=== PATIENT | female | born 1975 | race Caucasian/White ===

== ENCOUNTER 2018-08-27 09:16 | Emergency (ER) | payer SELFPAY ==
--- NOTE | 2018-08-27 09:24 | ER ---
Nurse's Notes [facility] Name: Sarita Gutierrez Age: 43 yrs Sex: Female : 1975 Arrival Date: 08/27/2018 Time: 09:17 Bed 17 Private MD: Diagnosis: Presentation: 08/27 09:19 Presenting complaint: Pt called back to exam room, no answer. Registration staff report ss that patient was seen getting into her car and leaving. ED Course: :17 Patient arrived in ED. as Administered Medications: No medications were administered Outcome: 09:22 Eloped from waiting room, before triage ss 09:22 unknown 09:23 Patient left the ED. ss Signatures: Priti Day Shelby, RN RN ss
== END 2018-08-27 09:23 | disposition left against medical advice (07) ==
LOC: ER 09:16
DX: Z53.21 Procedure and treatment not carried out due to patient leaving prior to being seen by health care provider (principal)
CPT/HCPCS: 99281

== ENCOUNTER 2018-09-16 08:24 | Emergency (ER) | payer SELFPAY ==
--- NOTE | 2018-09-16 09:34 | ER ---
Nurse's Notes [facility] Name: Sarita Gutierrez Age: 43 yrs Sex: Female : 1975 Arrival Date: 09/16/2018 Time: 08:25 Bed External Waiting [facility] MD: Diagnosis: Schizophrenia, unspecified Presentation: 09/16 08:38 Presenting complaint: Patient states: "I am hearing voices and I think I have cancer". aa5 When asked what the voices are telling her pt answers "a lot of things". Denies suicidal and homicidal ideations. 08:38 Transition of care: patient was not received from another setting of care. Onset of aa5 symptoms was September 16, 2018. Risk Assessment: Do you want to hurt yourself or someone else? Patient reports no desire to harm self or others. Initial Sepsis Screen: Does the patient meet any 2 criteria? No. Patient's initial sepsis screen is negative. Does the patient have a suspected source of infection? No. Patient's initial sepsis screen is negative. Care prior to arrival: None. 08:38 Acuity: JOSE LUIS 4 aa5 08:38 Method Of Arrival: Ambulatory aa5 Historical: - Allergies: 08:40 Erythromycin; aa5 - PMHx: 08:40 Hepatitis C; Schizophrenia; aa5 - Immunization history:: Adult Immunizations unknown. - Social history:: Smoking status: Patient uses tobacco products, smokes one pack cigarettes per day. Patient uses alcohol, on a daily basis. Patient/guardian denies using street drugs. - Ebola Screening: : No symptoms or risks identified at this time. Assessment: 08:50 General: Appears in no apparent distress. unkempt, well developed, well nourished, sg Behavior is agitated, restless, uncooperative. Pain: Complains of pain in abdomen. Neuro: Level of Consciousness is awake, alert, obeys commands, Oriented to person, place, time, Moves all extremities. Speech is normal, Facial symmetry appears normal. Cardiovascular: Patient's skin is warm and dry. Chest pain is denied. Respiratory: Airway is patent Respiratory effort is even, unlabored, Respiratory pattern is regular, symmetrical. GI: Abdomen is round non-distended, obese. GI: Reports stomach feels like its burning. : No signs and/or symptoms were reported regarding the genitourinary system. EENT: No signs and/or symptoms were reported regarding the EENT system. Derm: Skin is pink, warm \\T\\ dry. Musculoskeletal: No signs and/or symptoms reported regarding the musculoskeletal system. 08:51 Reassessment: pt observed walking out of the department at this time, pt reports she sg does not want blood work. pt tolerating water drinking from cup as she walks out of the department. 09:11 Reassessment: pt not in the department at this time. sg Vital Signs: 08:45 BP 119 / 84; Pulse 108; Resp 16 S; Temp 98.7(TE); Pulse Ox 98% on R/A; aa5 ED Course: 08:25 Patient arrived in ED. rg4 08:38 Arm band placed on Patient placed in an exam room, on a stretcher. aa5 08:42 Donaldo Caruso NP is [facility]. pm1 08:42 Elías Arriaza MD is Attending Physician. pm1 08:44 Triage completed. aa5 Administered Medications: No medications were administered Outcome: 09:33 Patient left the ED. aa5 Signatures: Donald Berg, RN RN Cherrie Patel RN RN aa5 Donaldo Caruso NP [employer] pm1 Roxana Tenorio rg4
--- NOTE | 2018-09-16 09:34 | EDPHYS ---
Physician Documentation [facility] Name: Sarita Gutierrez Age: 43 yrs Sex: Female : 1975 Arrival Date: 09/16/2018 Time: 08:25 Bed External Waiting Private MD: ED Physician Elías Arriaza HPI: 09/16 08:48 This 43 yrs old Female presents to ER via Ambulatory with complaints of Psych pm1 Problem, Hearing voices. 08:48 Past psychiatric history: Prior diagnosis: schizophrenia, Psychiatric medications pm1 include: none, Primary psychiatric physician: the patient does not have a primary psychiatric physician. Associated signs and symptoms: Pertinent positives; hallucinations, Pertinent negatives: abdominal pain, chest pain, headache, homicidal ideation, shortness of breath, suicide ideation. Severity of symptoms: Pain is currently a 0 / 10. The patient has experienced similar episodes in the past, chronically. The patient has been recently seen at the [facility] Emergency Department, just prior to arrival, by me, for similar complaints Patient refused to be treated and wanted to go home. Patient now presents to the ER saying that she wishes to be treated. Historical: - Allergies: 08:40 Erythromycin; aa5 - PMHx: 08:40 Hepatitis C; Schizophrenia; aa5 - Immunization history:: Adult Immunizations unknown. - Social history:: Smoking status: Patient uses tobacco products, smokes one pack cigarettes per day. Patient uses alcohol, on a daily basis. Patient/guardian denies using street drugs. - Ebola Screening: : No symptoms or risks identified at this time. ROS: 08:48 Constitutional: Negative for fever, chills, and weight loss, Eyes: Negative for injury, pm1 pain, redness, and discharge, ENT: Negative for injury, pain, and discharge, Neck: Negative for injury, pain, and swelling, Cardiovascular: Negative for chest pain, palpitations, and edema, Respiratory: Negative for shortness of breath, cough, wheezing, and pleuritic chest pain, Abdomen/GI: Negative for abdominal pain, nausea, vomiting, diarrhea, and constipation, Back: Negative for injury and pain, : Negative for injury, bleeding, discharge, and swelling, MS/Extremity: Negative for injury and deformity, Skin: Negative for injury, rash, and discoloration. 08:48 Psych: Positive for auditory hallucinations, Negative for homicidal ideation, suicide gesture, suicidal ideation. Exam: 08:48 Constitutional: This is a well developed, well nourished patient who is awake, alert, pm1 and in no acute distress. Head/Face: Normocephalic, atraumatic. Eyes: Pupils equal round and reactive to light, extra-ocular motions intact. Lids and lashes normal. Conjunctiva and sclera are non-icteric and not injected. Cornea within normal limits. Periorbital areas with no swelling, redness, or edema. ENT: Nares patent. No nasal discharge, no septal abnormalities noted. Tympanic membranes are normal and external auditory canals are clear. Oropharynx with no redness, swelling, or masses, exudates, or evidence of obstruction, uvula midline. Mucous membranes moist. Neck: Trachea midline, no thyromegaly or masses palpated, and no cervical lymphadenopathy. Supple, full range of motion without nuchal rigidity, or vertebral point tenderness. No Meningismus. Chest/axilla: Normal chest wall appearance and motion. Nontender with no deformity. No lesions are appreciated. Cardiovascular: Regular rate and rhythm with a normal S1 and S2. No gallops, murmurs, or rubs. Normal PMI, no JVD. No pulse deficits. Respiratory: Lungs have equal breath sounds bilaterally, clear to auscultation and percussion. No rales, rhonchi or wheezes noted. No increased work of breathing, no retractions or nasal flaring. Abdomen/GI: Soft, non-tender, with normal bowel sounds. No distension or tympany. No guarding or rebound. No evidence of tenderness throughout. Back: No spinal tenderness. No costovertebral tenderness. Full range of motion. Skin: Warm, dry with normal turgor. Normal color with no rashes, no lesions, and no evidence of cellulitis. MS/ Extremity: Pulses equal, no cyanosis. Neurovascular intact. Full, normal range of motion. 08:48 Neuro: Orientation: is normal, Motor: is normal, moves all fours, Sensation: is normal, no obvious gross deficits. 08:48 Psych: Behavior/mood is cooperative, Affect is animated, Oriented to person, place, time, Delusions/hallucinations are not present. Vital Signs: 08:45 BP 119 / 84; Pulse 108; Resp 16 S; Temp 98.7(TE); Pulse Ox 98% on R/A; aa5 MDM: 08:43 Patient medically screened. pm1 08:48 Data reviewed: vital signs. Data interpreted: Pulse oximetry: on room air is 98 %. pm1 Interpretation: normal. 09/16 08:46 Order name: Acetaminophen pm1 09/16 08:46 Order name: Basic Metabolic Panel pm1 09/16 08:46 Order name: EKG - Nurse/Tech pm1 09/16 08:46 Order name: IV Saline Lock pm09/16 08:46 Order name: Labs collected and sent pm09/16 08:46 Order name: Urine Dipstick-Ancillary (obtain specimen) pm1 09/16 08:46 Order name: Urine Test (obtain specimen) pm1 Administered Medications: No medications were administered Disposition: 09/16/18 09:33 Patient left the facility after being seen by provider. Preliminary diagnosis is Schizophrenia, unspecified. - Patient left due to unknown. - Condition is Undetermined. - Problem is an ongoing problem. - Symptoms are unchanged. Addendum: 09/17/2018 18:16 Co-signature as Attending Physician, Elías Arriaza MD. g s Signatures: Dispatcher [employer] Cherrie Rodriguez RN RN aa5 Donaldo Caruso, PULVERIZER TENDER PULVERIZER TENDER pm1 Elías Arriaza MD MD Corrections: (The following items were deleted from the chart) 09/16 09:33 09:33 09/16/2018 09:33 Patient left the facility after being seen by provider. aa5 Preliminary diagnosis is Schizophrenia, unspecified. Reason stated they are leaving due to (see nurse's notes). Condition is Undetermined. Problem is an ongoing problem. Symptoms are unchanged. pm1 09:33 09:33 09/16/2018 09:33 Patient left the facility after being seen by provider. Reason aa5 stated they are leaving due to unknown. aa5
[2018-09-16 09:45] VITALS: BP 119/84; TEMP 98.7; O2SAT 98
== END 2018-09-16 09:33 | disposition left against medical advice (07) ==
LOC: ER 08:24
DX: F20.0 Paranoid schizophrenia (principal); F17.210 Nicotine dependence, cigarettes, uncomplicated; Z88.3 Allergy status to other anti-infective agents
CPT/HCPCS: 93005; 99282

== ENCOUNTER 2018-09-16 19:03 | Emergency (ER) | payer SELFPAY ==
[2018-09-16 19:54] LABS: Absolute Lymphocytes (CBC) 3.4 K/uL (0.7-4.9); Basophils % 0.7 % (0-1.3); Eosinophils % 2.8 % (0-4.4); Hematocrit 37.8 % (36.0-45.0); Lymphocytes % 29.7 % (15.3-44.8); MPV 9.4 fL (7.6-11.3); Monocytes % 11.3 % (3.3-12.3); RBC Red Blood Cell Count 5.16 M/uL (3.86-4.86)
[2018-09-16] MEDS ORDERED: ZIPRASIDONE MESYLA 20 MG/VIAL IM ONE (19:54)
[2018-09-16] MEDS ORDERED: NA CHLORIDE 0.9% 1,000 ML ONE (19:54)
[2018-09-16] MEDS ORDERED: WATER FOR INJ,STERILE 10 ML ONE (19:55)
[2018-09-16 19:59] LABS: Protime INR 0.89
[2018-09-16 20:06] LABS: ALT/SGPT 34 U/L (12-78); AST/SGOT 27 U/L (15-37); Albumin 3.6 g/dL (3.4-5.0); Alkaline Phosphatase 99 U/L (45-117); BUN Blood Urea Nitrogen 9 mg/dL (7-18); Bicarbonate 28 mmol/L (21-32); Bilirubin Direct 0.2 mg/dL (0-0.2); Bilirubin Total 0.8 mg/dL (0.2-1.0); Glucose Level 94 mg/dL (74-106); Potassium 3.7 mmol/L (3.5-5.1); Protein, Total 8.4 g/dL (6.4-8.2); Sodium Level 141 mmol/L (136-145)
[2018-09-16 22:34] LABS: Anisocytosis SLIGHT; Blood Morphology Comment NOTED (NOT SEEN); Platelet Estimate ADEQ; Urine White Blood Cell Casts OK
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
--- NOTE | 2018-09-16 23:18 | EDPHYS ---
Physician Documentation [facility] Name: Sarita Gutierrez Age: 43 yrs Sex: Female : 1975 Arrival Date: 09/16/2018 Time: 19:05 Bed 17 Private MD: ED Physician Raffi Giles HPI: 09/16 23:12 This 43 yrs old Female presents to ER via Ambulatory with complaints of kdr Suicidal Ideation. 23:12 The patient presents to the emergency department with depression, over unknown kdr circumstances, paranoia, suicide ideation, and the patient has a plan, to hang oneself. Onset: The symptoms/episode began/occurred gradually, at an unknown time. Past psychiatric history: Prior diagnosis: schizophrenia, Psychiatric medications include: none, Primary psychiatric physician: the patient does not have a primary psychiatric physician, the patient has had a prior suicide gesture, the patient has a previous inpatient psychiatric history, the patient's last psychiatric treatment was this morning. Associated signs and symptoms: Pertinent positives; hallucinations, suicide ideation. Severity of symptoms: At their worst the symptoms were incapacitating in the emergency department the symptoms are unchanged. The patient has experienced similar episodes in the past, chronically. It is unknown whether or not the patient has recently seen a physician. The patient states that she is hearing voices and wants to put a rope around her neck and hang herself to get the voices to stop. SLAT TWISTER: 19:10 LMP 09/16/2018 aj1 Historical: - Allergies: 19:10 Erythromycin; aj1 - Home Meds: 19:10 None [Active]; aj1 - PMHx: 19:10 Hepatitis C; Schizophrenia; aj1 - Immunization history:: Flu vaccine status is unknown. - Social history:: Smoking status: Patient uses tobacco products, smokes one pack cigarettes per day. Patient uses alcohol, claims drinking about a 6 pack/day. Patient/guardian denies using street drugs. - Ebola Screening: : Patient denies travel to an Ebola-affected area in the 21 days before illness onset. ROS: 23:12 Constitutional: Negative for fever, chills, and weight loss, Eyes: Negative for injury, kdr pain, redness, and discharge, Neck: Negative for injury, pain, and swelling, Cardiovascular: Negative for chest pain, palpitations, and edema, Respiratory: Negative for shortness of breath, cough, wheezing, and pleuritic chest pain, Abdomen/GI: Negative for abdominal pain, nausea, vomiting, diarrhea, and constipation, Back: Negative for injury and pain, : Negative for injury, bleeding, discharge, and swelling, MS/Extremity: Negative for injury and deformity, Skin: Negative for injury, rash, and discoloration, Neuro: Negative for headache, weakness, numbness, tingling, and seizure activity. Allergy/Immunology: Negative for hives, rash, and allergies, Endocrine: Negative for neck swelling, polydipsia, polyuria, polyphagia, and marked weight changes, Hematologic/Lymphatic: Negative for swollen nodes, abnormal bleeding, and unusual bruising. 23:12 Psych: Positive for auditory hallucinations, suicidal ideation, Negative for Exam: 23:12 Constitutional: This is a well developed, well nourished patient who is awake, alert, kdr and in moderate distress. 23:12 Psych: Behavior/mood is anxious, aggressive, suicidal, angry, inappropriate for age, Affect is animated, Oriented to person, place, Patient having thoughts of suicide. Plan for suicide is Rope/hanging Judgement / Insight is impaired. Delusions/hallucinations are present and described as Voices telling her to hang herself. Vital Signs: 19:10 BP 119 / 81; Pulse 116; Resp 20; Temp 97.2; Pulse Ox 99% on R/A; Height 5 ft. 4 in. aj1 (162.56 cm) (R); Pain 0/10; 09/17 02:43 BP 110 / 71; Pulse 88; Resp 14; Temp 97.9(O); Pulse Ox 100% on R/A; ag4 08:35 BP 125 / 91; Pulse 79; Resp 16; Temp 97.6(TE); Pulse Ox 98% on R/A; mh5 12:44 BP 129 / 77; Pulse 83; Resp 17; Temp 98.2(O); Pulse Ox 100% on R/A; mh5 MDM: 09/16 23:12 Data reviewed: vital signs, nurses notes, lab test result(s). Counseling: I had a kdr detailed discussion with the patient and/or guardian regarding: the historical points, exam findings, and any diagnostic results supporting the discharge/admit diagnosis, lab results, the need to transfer to another facility. 23:18 Patient medically screened. [facility] 09/17 12:26 ED course: pt seen and examined, long standing hallucinations hx schizophrenia, drug gs use. states was tired of hearing voices off latuda for a couple of months. states not suicidal, want to get back on meds denies will hurt self if discharged planned. had resources and support for discharge.. 09/16 19:15 Order name: Acetaminophen [facility] 09/16 19:15 Order name: Basic Metabolic Panel [facility] 09/16 19:15 Order name: CBC with Diff [facility] 09/16 19:15 Order name: ETOH Level; Complete Time: 20:30 [facility] 09/16 19:15 Order name: Hepatic Function; Complete Time: 20:30 [facility] 09/16 19:15 Order name: PT-INR; Complete Time: 20:30 [facility] 09/16 19:15 Order name: Ptt, Activated; Complete Time: 20:30 [facility] 09/16 19:15 Order name: Salicylate; Complete Time: 20:30 [facility] 09/16 19:15 Order name: Urine Drug Screen; Complete Time: 12:53 [facility] 09/16 19:16 Order name: Acetaminophen Level; Complete Time: 20:30 [facility] 09/16 19:16 Order name: Basic Metabolic Panel; Complete Time: 20:30 [facility] 09/16 19:16 Order name: CBC with Automated Diff; Complete Time: 12:53 [facility] 09/16 19:58 Order name: CBC Smear Scan; Complete Time: 12:53 [facility] 09/16 23:37 Order name: Urine Dipstick--Ancillary (enter results); Complete Time: 12:53 cm6 09/16 19:15 Order name: IV Saline Lock; Complete Time: 19:41 [facility] 09/16 19:15 Order name: Labs collected and sent; Complete Time: 19:42 [facility] 09/16 19:15 Order name: Urine Dipstick-Ancillary (obtain specimen); Complete Time: 23:25 [facility] 09/16 23:37 Order name: Urine --Ancillary (enter results); Complete Time: 12:53 cm6 09/17 07:00 Order name: Diet Regular; Complete Time: 07:00 09/17 10:17 Order name: Diet Regular; Complete Time: 10:17 mh5 Administered Medications: 09/16 19:40 Drug: Geodon 20 mg Route: IM; Site: right gluteus; rr5 20:40 Follow up: Response: Marked relief of symptoms rr5 19:41 Drug: NS 0.9% 1000 ml Route: IV; Rate: 1 bolus; Site: right antecubital; rr5 22:00 Follow up: Response: No adverse reaction; IV Status: Completed infusion; IV Intake: rr5 1000ml Disposition: 09/17/18 12:31 Discharged to Home. Impression: Schizophrenia, Suicidal ideations. - Condition is Stable. - Discharge Instructions: Schizophrenia, Suicidal Feelings: How to Help Yourself. - Prescriptions for Latuda 40 mg Oral tablet - take 1 tablet by ORAL route once daily; 7 tablet. Hydroxyzine HCl 50 mg Oral Tablet - take 1 tablet by ORAL route every 8 hours As needed; 21 tablet. Neurontin 300 mg Oral Capsule - take 1 capsule by ORAL route 2 times per day; 14 capsule. - Medication Reconciliation Form, Thank You Letter, Antibiotic Education, Prescription Opioid Use form. - Follow up: Private Physician; When: 1 - 2 days; Reason: Re-evaluation by your physician. Signatures: Dispatcher [employer] Annalisa Gomez RN RN aj1 Raffi Giles MD MD kdr Munoz, Edgar, RECREATION WORKER RECREATION WORKER em Elías Arriaza MD MD gs Roque, Raymond RN RN rr5 Corrections: (The following items were deleted from the chart) 09/17 12:26 09/16 23:18 09/16/2018 23:18 Transfer ordered to Psych Facility. Diagnosis is Suicidal gs ideations. Reason for transfer: Higher level of care. Accepting physician is MD. Condition is Fair. Problem is an acute exacerbation. Symptoms have improved. kdr 09/17 13:13 12:31 09/17/2018 12:31 Discharged to Home. Impression: Schizophrenia; Suicidal em ideations. Condition is Stable. Forms are Medication Reconciliation Form, Thank You Letter, Antibiotic Education, Prescription Opioid Use. Follow up: Private Physician; When: 1 - 2 days; Reason: Re-evaluation by your physician. gs
[2018-09-17 00:31] LABS: Barbiturates NEGATIVE (NEGATIVE); Benzodiazepines NEGATIVE (NEGATIVE); Cocaine NEGATIVE (NEGATIVE); METHAMPHETAM POSITIVE (NEGATIVE); Methadone NEGATIVE (NEGATIVE); Opiates NEGATIVE (NEGATIVE); Phencyclidine NEGATIVE (NEGATIVE); THC Cannibis NEGATIVE (NEGATIVE)
[2018-09-17 02:05] LABS: Urine Blood NEGATIVE (NEG); Urine Glucose NEGATIVE (NEG); Urine Protein NEGATIVE (NEG)
[2018-09-17 13:42] VITALS: BP 129/77; TEMP 98.2; O2SAT 100
== END 2018-09-17 13:13 | disposition home or self-care (01) ==
LOC: ER 19:03
DX: R45.851 Suicidal ideations (principal); F20.9 Schizophrenia, unspecified; F17.210 Nicotine dependence, cigarettes, uncomplicated; Z88.3 Allergy status to other anti-infective agents
CPT/HCPCS: 36415; 80048; 80076; 80307; 80320; 80329; 81003; 81025; 85025; 85610; 85730; 96360; 96361; 96372; 99284; J3486; J7030

== ENCOUNTER 2018-09-28 16:08 | Emergency (ER) | payer SELFPAY ==
[2018-09-28 17:07] LABS: Absolute Lymphocytes (CBC) 2.8 K/uL (0.7-4.9); Basophils % 0.8 % (0-1.3); Hematocrit 35.2 % (36.0-45.0); Lymphocytes % 29.2 % (15.3-44.8); MPV 8.7 fL (7.6-11.3); RBC Red Blood Cell Count 4.77 M/uL (3.86-4.86)
[2018-09-28 17:10] LABS: Barbiturates NEGATIVE (NEGATIVE); Benzodiazepines NEGATIVE (NEGATIVE); Cocaine NEGATIVE (NEGATIVE); METHAMPHETAM POSITIVE (NEGATIVE); Methadone NEGATIVE (NEGATIVE); Opiates NEGATIVE (NEGATIVE); Phencyclidine NEGATIVE (NEGATIVE); THC Cannibis NEGATIVE (NEGATIVE)
[2018-09-28 17:11] LABS: Protime INR 0.98
[2018-09-28] MEDS ORDERED: ZIPRASIDONE MESYLA 20 MG/VIAL IM ONE (17:14)
[2018-09-28 17:16] LABS: Urine Blood NEGATIVE (NEG); Urine Glucose NEGATIVE (NEG); Urine Protein NEGATIVE (NEG); Urine pH 6.5 (5.0-7.0)
--- NOTE | 2018-09-28 17:19 | ER ---
Nurse's Notes [facility] Name: Sarita Gutierrez Age: 43 yrs Sex: Female : 1975 Arrival Date: 09/28/2018 Time: 16:13 Bed 30 Private MD: None, None Diagnosis: Schizophrenia, unspecified;Hallucinations, unspecified Presentation: 09/28 16:22 Presenting complaint: "I usually hear voices but my medicine calms it down, but I hb haven't started them since I got out of [facility] in May. Yesterday the voices were loud so I self medicated with meth, and now I feel worse. This morning I thought someone was trying to break into my house and i called the police, now the voices are really loud." Denies HI/SI. Transition of care: patient was not received from another setting of care. Onset of symptoms was September 27, 2018. Risk Assessment: Do you want to hurt yourself or someone else? Patient reports no desire to harm self or others. Initial Sepsis Screen: Does the patient meet any 2 criteria? No. Patient's initial sepsis screen is negative. Does the patient have a suspected source of infection? No. Patient's initial sepsis screen is negative. Care prior to arrival: None. 16:22 Method Of Arrival: Ambulatory hb 16:22 Acuity: JOSE LUIS 3 hb Historical: - Allergies: 16:25 Erythromycin; hb - Home Meds: 16:25 gabapentin Oral 1 cap 3 times per day [Active]; hydroxyzine HCl Oral [Active]; Latuda hb Oral 1 tab once daily [Active]; - PMHx: 16:25 Hepatitis C; Schizophrenia; hb - Immunization history:: Adult Immunizations unknown. - Family history:: not pertinent. - Social history:: Smoking status: unknown. - Hospitalizations: : No recent hospitalization is reported. Screenin:10 Abuse screen: Denies threats or abuse. Denies injuries from another. Nutritional rv screening: No deficits noted. Tuberculosis screening: No symptoms or risk factors identified. Fall Risk None identified. Assessment: 16:30 General: Appears in no apparent distress. uncomfortable, Behavior is calm, cooperative. rv 16:30 Pain: Denies pain. Neuro: Level of Consciousness is awake, alert, obeys commands, rv Oriented to person, place, time, situation. Cardiovascular: Patient's skin is warm and dry. Respiratory: Airway is patent. GI: No signs and/or symptoms were reported involving the gastrointestinal system. : No signs and/or symptoms were reported regarding the genitourinary system. EENT: No signs and/or symptoms were reported regarding the EENT system. Derm: Skin is intact. Musculoskeletal: No signs and/or symptoms reported regarding the musculoskeletal system. 17:12 Reassessment: PATIENT STARTED TO BE UNCOOPERATIVE AND THREATENS TO LEAVE THE ROOM AFTER rv LEARNING SHE WILL BE GETTING A MEDICATION THROUGH IM. REFERRED TO DR HAY. PATIENT TOOK HER IV OUT AND LEFT WITHOUT NOTICE. Vital Signs: 16:24 BP 168 / 88; Pulse 89; Resp 16; Temp 97.4; Pulse Ox 100% on R/A; Weight 86.18 kg; hb Height 5 ft. 4 in. (162.56 cm); Pain 0/10; 16:24 Body Mass Index 32.61 (86.18 kg, 162.56 cm) hb ED Course: 16:13 Patient arrived in ED. mr 16:13 None, None is Private Physician. mr 16:24 Triage completed. hb 16:24 Arm band placed on. hb 16:26 Josef Hay MD is Attending Physician. rn 16:43 Inserted saline lock: 20 gauge in right forearm, using aseptic technique. Blood rv collected. 16:51 Shawn Maravilla, RN is Primary Nurse. rv Administered Medications: 17:16 Not Given (Patient Refused): Geodon 10 mg IM once rv Outcome: 17:15 Eloped from patient exam room, after seeing physician Time discovered patient gone: rv September 28, 2018 at 17:15 17:15 Condition: unchanged 17:22 Patient left the ED. rv Signatures: Senia Brar Josef Hay MD MD rn Baxter, Heather, RN RN Shawn Maravilla RN RN rv
--- NOTE | 2018-09-28 17:20 | EDPHYS ---
Physician Documentation [facility] Name: Sarita Gutierrez Age: 43 yrs Sex: Female : 1975 Arrival Date: 09/28/2018 Time: 16:13 Bed 30 Private MD: None, None ED Physician Josef Hay HPI: 09/28 16:39 This 43 yrs old Female presents to ER via Ambulatory with complaints of rn Hearing voices,hallucinations. 16:39 The patient presents to the emergency department with paranoia. Onset: The rn symptoms/episode began/occurred at an unknown time. Severity of symptoms: At their worst the symptoms were moderate in the emergency department the symptoms are unchanged. The patient has experienced similar episodes in the past. Patient presents with hearing voices, emt intermediate problem, incarcerated in May and off meds since then, reports has [facility] appointment tomorrow but not sure she can wait. Denies suicidal ideation. Reports paranoia, called police earlier because thought someone was breaking into her house. No trauma. Reports felt bad so used meth yesterday which seems to have made things worse. . Historical: - Allergies: 16:25 Erythromycin; hb - Home Meds: 16:25 gabapentin Oral 1 cap 3 times per day [Active]; hydroxyzine HCl Oral [Active]; Latuda hb Oral 1 tab once daily [Active]; - PMHx: 16:25 Hepatitis C; Schizophrenia; hb - Immunization history:: Adult Immunizations unknown. - Family history:: not pertinent. - Social history:: Smoking status: unknown. - Hospitalizations: : No recent hospitalization is reported. ROS: 16:42 Constitutional: Negative for fever, chills, and weight loss, Eyes: Negative for injury, rn pain, redness, and discharge, Neck: Negative for injury, pain, and swelling, Cardiovascular: Negative for chest pain, palpitations, and edema, Respiratory: Negative for shortness of breath, cough, wheezing, and pleuritic chest pain, Abdomen/GI: Negative for abdominal pain, nausea, vomiting, diarrhea, and constipation, : Negative for injury, bleeding, discharge, and swelling, MS/Extremity: Negative for injury and deformity, Skin: Negative for injury, rash, and discoloration, Neuro: Negative for headache, weakness, numbness, tingling, and seizure, Psych: + depression, anxiety, paranoia, and hallucinations Exam: 16:42 Constitutional: This is a well developed, well nourished patient who is awake, alert, rn appears anxious and agitated Head/Face: Normocephalic, atraumatic. Eyes: Pupils equal round and reactive to light, extra-ocular motions intact. Lids and lashes normal. Conjunctiva and sclera are non-icteric and not injected. Cornea within normal limits. Periorbital areas with no swelling, redness, or edema. ENT: MMM Cardiovascular: Regular rate and rhythm. No pulse deficits. Respiratory: Lungs have equal breath sounds bilaterally, clear to auscultation. No increased work of breathing, no retractions or nasal flaring. Skin: Warm, dry MS/ Extremity: Pulses equal, no cyanosis. Neurovascular intact. Full, normal range of motion. Equal circumference. Neuro: Awake and alert, GCS 15, oriented to person, place, time, and situation. Cranial nerves II-XII grossly intact. Motor strength 5/5 in all extremities. Sensory grossly intact. Cerebellar exam normal. Normal gait. Psych: Awake, alert, oriented x 3, fast talking but redirectible, denies suicidal ideation. Reports constant voices. Vital Signs: 16:24 BP 168 / 88; Pulse 89; Resp 16; Temp 97.4; Pulse Ox 100% on R/A; Weight 86.18 kg; hb Height 5 ft. 4 in. (162.56 cm); Pain 0/10; 16:24 Body Mass Index 32.61 (86.18 kg, 162.56 cm) hb MDM: 16:26 Patient medically screened. rn 17:14 Differential diagnosis: psychosis secondary to non-compliance. Data reviewed: vital rn signs, nurses notes. ED course: After long discussion with patient, initial plan was to medicate and see if anti-psychotic would help, and reeval if could f/u tomorrow, which patient agreed to. Next thing I know, patient refuses IV and does not want meds, wants to leave. Still denies suicidal or homicidal ideation, chronic schizophrenic hallucinations have worsened and caused paranoia, does not want to be transferred, has appt tomorrow and wants to go home. Gave her time to think about it and when I returned, patient had eloped without warning. Given not suicidal/homicidal, and denies threat to others or self, police not called. . 09/28 16:38 Order name: Acetaminophen rn 09/28 16:38 Order name: Basic Metabolic Panel rn 09/28 16:38 Order name: CBC with Diff rn 09/28 16:38 Order name: ETOH Level rn 09/28 16:38 Order name: Hepatic Function rn 09/28 16:38 Order name: PT-INR rn 09/28 16:38 Order name: Ptt, Activated rn 09/28 16:38 Order name: Salicylate rn 09/28 16:38 Order name: Urine Drug Screen 09/28 17:11 Order name: Urine Dipstick--Ancillary (enter results) 09/28 17:11 Order name: Urine --Ancillary (enter results) 09/28 17:12 Order name: CBC Smear Scan EDDC 09/28 16:38 Order name: Urine Test (obtain specimen) 09/28 16:38 Order name: IV Saline Lock; Complete Time: 17:16 09/28 16:38 Order name: Labs collected and sent; Complete Time: 17:16 09/28 16:38 Order name: Urine Dipstick-Ancillary (obtain specimen) rn Administered Medications: 17:16 Not Given (Patient Refused): Geodon 10 mg IM once rv Disposition: 09/28/18 17:18 Patient left the facility after being seen by provider. Preliminary diagnosis are Schizophrenia, unspecified, Hallucinations, unspecified. - Patient left due to feeling better. - Condition is Stable. Signatures: Dispatcher [employer] [facility] Josef Hay MD MD rn Baxter, Heather, RN RN hb Vicente, Ronaldo, RN RN rv Corrections: (The following items were deleted from the chart) 16:43 16:42 Constitutional: This is a well developed, well nourished patient who is awake, rn alert, appears anxious and agitated Head/Face: Normocephalic, atraumatic. Eyes: Pupils equal round and reactive to light, extra-ocular motions intact. Lids and lashes normal. Conjunctiva and sclera are non-icteric and not injected. Cornea within normal limits. Periorbital areas with no swelling, redness, or edema. ENT: MMM Cardiovascular: Regular rate and rhythm. No pulse deficits. Respiratory: Lungs have equal breath sounds bilaterally, clear to auscultation. No increased work of breathing, no retractions or nasal flaring. Skin: Warm, dry MS/ Extremity: Pulses equal, no cyanosis. Neurovascular intact. Full, normal range of motion. Equal circumference. Neuro: Awake and alert, GCS 15, oriented to person, place, time, and situation. Cranial nerves II-XII grossly intact. Motor strength 5/5 in all extremities. Sensory grossly intact. Cerebellar exam normal. Normal gait. rn 17:16 16:38 EKG - Nurse/Tech ordered. mendez rv 17:22 17:18 09/28/2018 17:18 Patient left the facility after being seen by provider. rv Preliminary diagnosis is Schizophrenia, unspecified; Hallucinations, unspecified. Reason stated they are leaving due to feeling better. Condition is Stable. rn
[2018-09-28 17:30] LABS: ALT/SGPT 31 U/L (12-78); AST/SGOT 26 U/L (15-37); Albumin 3.3 g/dL (3.4-5.0); Alkaline Phosphatase 88 U/L (45-117); BUN Blood Urea Nitrogen 5 mg/dL (7-18); Bicarbonate 25 mmol/L (21-32); Bilirubin Direct 0.2 mg/dL (0-0.2); Bilirubin Total 0.8 mg/dL (0.2-1.0); Glucose Level 92 mg/dL (74-106); Protein, Total 7.7 g/dL (6.4-8.2); Sodium Level 138 mmol/L (136-145)
[2018-09-28 17:31] VITALS: BP 168/88; TEMP 97.4; O2SAT 100
[2018-09-28 17:49] LABS: Anisocytosis 1+; Blood Morphology Comment NOTED (NOT SEEN); Platelet Estimate ADEQ; Urine White Blood Cell Casts OK
== END 2018-09-28 17:22 | disposition left against medical advice (07) ==
LOC: ER 16:08
DX: F20.9 Schizophrenia, unspecified (principal); R44.3 Hallucinations, unspecified; Z88.1 Allergy status to other antibiotic agents
CPT/HCPCS: 36415; 80048; 80076; 80307; 80320; 80329; 81003; 81025; 85025; 85610; 85730; J3486

== ENCOUNTER 2018-09-29 01:33 | Emergency (ER) | payer SELFPAY ==
[2018-09-29] MEDS ORDERED: FAMOTIDINE 20 MG/2 ML VIAL IV ONE (02:21)
[2018-09-29] MEDS ORDERED: NA CHLORIDE 0.9% 1,000 ML ONE (02:21)
[2018-09-29] MEDS ORDERED: ONDANSETRON 4 MG/2 ML VIAL ONE (02:21)
[2018-09-29] MEDS ORDERED: MORPHINE 4 MG/ML SYR ONE (02:21)
[2018-09-29 02:23] LABS: Basophils % 0.7 % (0-1.3); Hematocrit 36.8 % (36.0-45.0); Lymphocytes % 28.8 % (15.3-44.8); MPV 8.7 fL (7.6-11.3); RBC Red Blood Cell Count 4.98 M/uL (3.86-4.86)
[2018-09-29 02:33] LABS: Urine Blood NEGATIVE (NEG); Urine Glucose NEGATIVE (NEG); Urine Protein NEGATIVE (NEG); Urine Specific Gravity 1.015 (1.005-1.030)
[2018-09-29 02:35] LABS: Protime INR 0.91
[2018-09-29 02:42] LABS: Barbiturates NEGATIVE (NEGATIVE); Benzodiazepines NEGATIVE (NEGATIVE); Cocaine NEGATIVE (NEGATIVE); METHAMPHETAM POSITIVE (NEGATIVE); Methadone NEGATIVE (NEGATIVE); Opiates NEGATIVE (NEGATIVE); Phencyclidine NEGATIVE (NEGATIVE); THC Cannibis NEGATIVE (NEGATIVE)
[2018-09-29 02:43] LABS: Platelet Estimate ADEQ; Urine White Blood Cell Casts OK
[2018-09-29 02:44] LABS: Anisocytosis 1+; Blood Morphology Comment NOTED (NOT SEEN)
[2018-09-29 02:45] LABS: ALT/SGPT 34 U/L (12-78); AST/SGOT 28 U/L (15-37); Albumin 3.6 g/dL (3.4-5.0); Alkaline Phosphatase 104 U/L (45-117); BUN Blood Urea Nitrogen 9 mg/dL (7-18); Bicarbonate 28 mmol/L (21-32); Bilirubin Direct 0.2 mg/dL (0-0.2); Bilirubin Total 0.6 mg/dL (0.2-1.0); Glucose Level 83 mg/dL (74-106); Potassium 3.3 mmol/L (3.5-5.1); Protein, Total 8.2 g/dL (6.4-8.2); Sodium Level 140 mmol/L (136-145)
[2018-09-29] MEDS ORDERED: CEFTRIAXONE/SWI 1gm 1 GM/10 ML SYR ONE (03:47)
--- NOTE | 2018-09-29 06:00 | ER ---
Nurse's Notes [facility] Name: Sarita Gutierrez Age: 43 yrs Sex: Female : 1975 Arrival Date: 09/29/2018 Time: 01:36 Bed 8 Private MD: Diagnosis: Abdominal tenderness;Schizophrenia;Functional dyspepsia;Hypokalemia Presentation: 09/29 01:36 Presenting complaint: EMS states: pt called stating she is hearing voices. pt denies ak1 voices telling her to harm herself or anyone else. pt denies SI or HI thoughts or plans when asked directly. pt was seen in ER 09/28/18 at 1600 for same s/s and eloped. Transition of care: patient was not received from another setting of care. Onset of symptoms is unknown. Risk Assessment: Do you want to hurt yourself or someone else? Patient reports no desire to harm self or others. Other: pt denies SI or HI thoughts or plans. Initial Sepsis Screen: Does the patient meet any 2 criteria? No. Patient's initial sepsis screen is negative. Does the patient have a suspected source of infection? No. Patient's initial sepsis screen is negative. Care prior to arrival: None. 01:36 Method Of Arrival: EMS: [facility] ak1 01:36 Acuity: JOSE LUIS 2 ak1 Triage Assessment: 01:40 General: Appears in no apparent distress. unkempt, Behavior is agitated, restless. ak1 Pain: Complains of pain in chest pain with cough, abd pain. EENT: No signs and/or symptoms were reported regarding the EENT system. Neuro: Level of Consciousness is awake, alert, obeys commands, Oriented to person, place, situation, Moves all extremities. Gait is steady, Speech fast and mumbled . Facial symmetry appears normal. Cardiovascular: Rhythm is sinus tachycardia. Respiratory: Airway is patent Respiratory effort is unlabored, Respiratory pattern is regular. GI: Abdomen is round Reports cramping. : No signs and/or symptoms were reported regarding the genitourinary system. Derm: No signs and/or symptoms reported regarding the dermatologic system. Musculoskeletal: No signs and/or symptoms reported regarding the musculoskeletal system. ADJUDICATION SPECIALIST: 01:40 pt stated she has had a tubal ligation ak1 Historical: - Allergies: 01:40 Erythromycin; ak1 - Home Meds: 01:40 gabapentin Oral 1 cap 3 times per day [Active]; Latuda Oral 1 tab once daily [Active]; ak1 hydroxyzine HCl Oral [Active]; Vistaril Oral [Active]; - PMHx: 01:40 Hepatitis C; Schizophrenia; ak1 - PSHx: 01:40 Tubal ligation; ak1 - Immunization history:: Adult Immunizations unknown. - Social history:: Smoking status: Patient uses tobacco products, smokes one-half pack cigarettes per day, Patient uses alcohol, pt stated she "had a couple of beers today". Patient/guardian denies using street drugs, pt was positive for Meth on her earlier visit today per UDS.. - Ebola Screening: : No symptoms or risks identified at this time. - Family history:: not pertinent. Screenin:44 Abuse screen: Denies threats or abuse. Denies injuries from another. Nutritional ak1 screening: No deficits noted. Tuberculosis screening: No symptoms or risk factors identified. Fall Risk None identified. Assessment: 02:23 Reassessment: Patient appears in no apparent distress at this time. Patient is alert, ak1 oriented x 3, equal unlabored respirations, skin warm/dry/pink. pt requested only half the morphine for pain stating " I don't want to go to sleep" pt asked to hold the other half to be given later if needed for abd pain. pt informed of need to drink oral contrast for CT. pt very restless at this time. pt continues to talk and argue with the voices she hears. General:. 02:58 Reassessment: CT notified pt finished oral contrast. ak1 03:38 Reassessment: pt denies any abd pain at this time. pt has become paranoid, stated "that ak1 woman is going to kill me" when asked the pt could not describe or point out said woman. I offered to speak to said woman but pt stated she was not "real". 06:06 Reassessment: Patient appears in no apparent distress at this time. Patient and/or jd3 family updated on plan of care and expected duration. Pain level reassessed. pt reported understanding of discharge instructions. even and steady gait upon discharge. pt refused last set of vitals. Patient denies pain at this time. Vital Signs: 01:40 BP 153 / 101; Pulse 133; Resp 20; Temp 98.1(TE); Pulse Ox 97% on R/A; Weight 90.72 kg ak1 (R); Height 5 ft. 4 in. (162.56 cm); 02:39 BP 153 / 98; Pulse 91; Resp 20; Temp 97.8; Pulse Ox 100% on R/A; Pain 3/10; ak1 03:52 BP 158 / 103; Pulse 87; Resp 20; Temp 97.8(TE); Pulse Ox 100% on R/A; oe 01:40 Body Mass Index 34.33 (90.72 kg, 162.56 cm) ak1 ED Course: 01:36 Patient arrived in ED. ak1 01:38 Triage completed. ak1 01:39 Chester Madsen MD is Attending Physician. elina 01:40 Arm band placed on Patient placed in an exam room, on a stretcher, Patient notified of ak1 wait time. 01:44 Patient has correct armband on for positive identification. Bed in low position. Call ak1 light in reach. Side rails up X 1. 01:59 Sarah Mahoney, RN is Primary Nurse. ak1 02:23 Initial lab(s) drawn, by nh, sent to lab. Urine collected: clean catch specimen, EKG ak1 done, by ED staff, reviewed by Chester Madsen MD. Inserted saline lock: 20 gauge in right antecubital area, using aseptic technique. Blood collected. 04:59 CT completed. Pt tolerated procedure poorly. Patient moved to CT via stretcher. Patient eh moved back from CT. 05:02 CT Abd/Pelvis - PO and IV Contrast In Process Unspecified. EDMS 05:59 Bhargav Allan MD is Referral Physician. elina 05:59 Bairon Biggs MD is Referral Physician. elina 06:08 No provider procedures requiring assistance completed. IV discontinued, intact, jd3 bleeding controlled, No redness/swelling at site. Pressure dressing applied. Administered Medications: 02:22 Drug: NS 0.9% 1000 ml Route: IV; Rate: 1 bolus; Site: right antecubital; ak1 06:00 Follow up: Response: No adverse reaction; IV Status: Completed infusion; IV Intake: jd3 1000ml 02:22 Drug: Pepcid 20 mg Route: IVP; Site: right antecubital; ak1 02:23 Follow up: Response: No adverse reaction ak1 02:22 Drug: morphine 2 mg {Note: pt requested half the dose now and to hold the other half, ak1 ERP notified. .} Route: IVP; Site: right antecubital; 02:22 Drug: Zofran 4 mg Route: IVP; Site: right antecubital; ak1 02:23 Follow up: Response: No adverse reaction ak1 03:37 Drug: Rocephin 1 grams Route: IV; Rate: per protocol; Site: right antecubital; ak1 06:06 Follow up: Response: No adverse reaction; IV Status: Completed infusion jd3 06:06 Not Given (Patient Refused): Potassium Effervescent Tablet 25 mEq PO once; dissolve in jd3 4 ounces of water or juice, if ct neg Intake: 06:00 IV: 1000ml; Total: 1000ml. jd3 Outcome: 05:59 Discharge ordered by MD. antoine 06:08 Discharged to home ambulatory. jd3 06:08 Condition: stable 06:08 Discharge instructions given to patient, Instructed on discharge instructions, follow up and referral plans. medication usage, Demonstrated understanding of instructions, follow-up care, medications, Prescriptions given X 3. 06:09 Patient left the ED. jd3 Signatures: Dispatcher [employer] EDMS Chester Madsen MD MD cha Hagler, Ervin eh Krenek, Amber RN RN ak1 Isaiah Morales Jonathon RN RN jd3 Corrections: (The following items were deleted from the chart) 06:09 06:06 Reassessment: Patient appears in no apparent distress at this time. Patient jd3 and/or family updated on plan of care and expected duration. Pain level reassessed. pt reported understanding of discharge instructions. even and steady gait upon discharge. Patient denies pain at this time. jd3
--- NOTE | 2018-09-29 06:01 | EDPHYS ---
Physician Documentation [facility] Name: Sarita Gutierrez Age: 43 yrs Sex: Female : 1975 Arrival Date: 09/29/2018 Time: 01:36 Bed 8 Private MD: [facility] Physician Chester Madsen HPI: 09/29 02:02 This 43 yrs old Female presents to ER via EMS with complaints of hearing elina voices. 02:02 The patient presents to the emergency department with psychosis, has experienced elina auditory hallucinations, a history of substance abuse. Onset: The symptoms/episode began/occurred 3 day(s) ago. Past psychiatric history: Prior diagnosis: schizophrenia. The patient presents with abdominal pain in the upper abdomen, in the lower abdomen, in the right upper quadrant, in the left upper quadrant, abdominal distention in the upper abdomen, in the lower abdomen. Onset: The symptoms/episode began/occurred 1 year(s) ago. Associated signs and symptoms: The patient has no apparent associated signs or symptoms. The symptoms do not radiate. Severity of pain: At its worst the pain was mild moderate in the emergency department the pain is unchanged. 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 - Social history:: Smoking status: Patient uses tobacco products, smokes one-half pack cigarettes per day, Patient uses alcohol, pt stated she "had a couple of beers today". Patient/guardian denies using street drugs, pt was positive for Meth on her earlier visit today per UDS.. - Ebola Screening: : No symptoms or risks identified at this time. - Family history:: not pertinent. ROS: 02:02 Constitutional: Negative for fever, chills, and weight loss, Eyes: Negative for injury, elina pain, redness, and discharge, ENT: Negative for injury, pain, and discharge, Neck: Negative for injury, pain, and swelling, Cardiovascular: Negative for chest pain, palpitations, and edema, Respiratory: Negative for shortness of breath, cough, wheezing, and pleuritic chest pain, Back: Negative for injury and pain, : Negative for injury, bleeding, discharge, and swelling, MS/Extremity: Negative for injury and deformity, Skin: Negative for injury, rash, and discoloration, Neuro: Negative for headache, weakness, numbness, tingling, and seizure, Allergy/Immunology: Negative for hives, rash, and allergies, Endocrine: Negative for neck swelling, polydipsia, polyuria, polyphagia, and marked weight changes, Hematologic/Lymphatic: Negative for swollen nodes, abnormal bleeding, and unusual bruising. 02:02 Abdomen/GI: Positive for abdominal pain, of the right upper quadrant, left upper quadrant, right lower quadrant and left lower quadrant. 02:02 Psych: Positive for anxiety, auditory hallucinations. Exam: 02:02 Constitutional: This is a well developed, well nourished patient who is awake, alert, elina and in no acute distress. Head/Face: Normocephalic, atraumatic. Eyes: Pupils equal round and reactive to light, extra-ocular motions intact. Lids and lashes normal. Conjunctiva and sclera are non-icteric and not injected. Cornea within normal limits. Periorbital areas with no swelling, redness, or edema. ENT: Nares patent. No nasal discharge, no septal abnormalities noted. Tympanic membranes are normal and external auditory canals are clear. Oropharynx with no redness, swelling, or masses, exudates, or evidence of obstruction, uvula midline. Mucous membranes moist. Neck: Trachea midline, no thyromegaly or masses palpated, and no cervical lymphadenopathy. Supple, full range of motion without nuchal rigidity, or vertebral point tenderness. No Meningismus. Chest/axilla: Normal chest wall appearance and motion. Nontender with no deformity. No lesions are appreciated. Respiratory: Lungs have equal breath sounds bilaterally, clear to auscultation and percussion. No rales, rhonchi or wheezes noted. No increased work of breathing, no retractions or nasal flaring. Back: No spinal tenderness. No costovertebral tenderness. Full range of motion. Skin: Warm, dry with normal turgor. Normal color with no rashes, no lesions, and no evidence of cellulitis. MS/ Extremity: Pulses equal, no cyanosis. Neurovascular intact. Full, normal range of motion. Neuro: Awake and alert, GCS 15, oriented to person, place, time, and situation. Cranial nerves II-XII grossly intact. Motor strength 5/5 in all extremities. Sensory grossly intact. Cerebellar exam normal. Normal gait. 02:02 Cardiovascular: Rate: tachycardic, Rhythm: regular, Pulses: Pulses are 4+ in bilateral radial, brachial, femoral, popliteal, posterior tibial and and dorsalis pedis arteries.. Heart sounds: normal, Edema: is not appreciated, JVD: is not appreciated. Vital Signs: 01:40 BP 153 / 101; Pulse 133; Resp 20; Temp 98.1(TE); Pulse Ox 97% on R/A; Weight 90.72 kg ak1 (R); Height 5 ft. 4 in. (162.56 cm); 02:39 BP 153 / 98; Pulse 91; Resp 20; Temp 97.8; Pulse Ox 100% on R/A; Pain 3/10; ak1 03:52 BP 158 / 103; Pulse 87; Resp 20; Temp 97.8(TE); Pulse Ox 100% on R/A; oe 01:40 Body Mass Index 34.33 (90.72 kg, 162.56 cm) ak MDM: 01:39 Patient medically screened. [facility] 02:04 Data reviewed: vital signs, nurses notes, lab test result(s), EKG, radiologic studies, [facility] CT scan, plain films. 09/29 01:41 Order name: Acetaminophen; Complete Time: 03:06 [facility] 09/29 01:41 Order name: Basic Metabolic Panel; Complete Time: 03:06 [facility] 09/29 01:41 Order name: CBC with Diff; Complete Time: 03:06 [facility] 09/29 01:41 Order name: ETOH Level; Complete Time: 03:06 [facility] 09/29 01:41 Order name: Hepatic Function; Complete Time: 03:06 [facility] 09/29 01:41 Order name: PT-INR; Complete Time: 03:06 [facility] 09/29 01:41 Order name: Ptt, Activated; Complete Time: 03:06 [facility] 09/29 01:41 Order name: Salicylate; Complete Time: 03:06 [facility] 09/29 01:41 Order name: Urine Drug Screen; Complete Time: 03:06 elina 09/29 02:02 Order name: Lipase; Complete Time: 03:06 elina 09/29 02:02 Order name: CT Abd/Pelvis - PO and IV Contrast [facility] 09/29 02:29 Order name: Urine Dipstick--Ancillary (enter results); Complete Time: 03:06 fc 09/29 02:29 Order name: Urine --Ancillary (enter results); Complete Time: 03:06 fc 09/29 02:44 Order name: CBC Smear Scan; Complete Time: 03:06 EDMS 09/29 01:41 Order name: Urine Test (obtain specimen); Complete Time: 02:40 elina 09/29 01:41 Order name: EKG; Complete Time: 01:42 elina 09/29 01:41 Order name: EKG - Nurse/Tech; Complete Time: 02:23 elina 09/29 01:41 Order name: IV Saline Lock; Complete Time: 02:23 elina 09/29 01:41 Order name: Labs collected and sent; Complete Time: 02:23 elina 09/29 01:41 Order name: Urine Dipstick-Ancillary (obtain specimen); Complete Time: 02:23 [facility] Administered Medications: 02:22 Drug: NS 0.9% 1000 ml Route: IV; Rate: 1 bolus; Site: right antecubital; ak1 06:00 Follow up: Response: No adverse reaction; IV Status: Completed infusion; IV Intake: jd3 1000ml 02:22 Drug: Pepcid 20 mg Route: IVP; Site: right antecubital; ak1 02:23 Follow up: Response: No adverse reaction ak1 02:22 Drug: morphine 2 mg {Note: pt requested half the dose now and to hold the other half, ak1 ERP notified. .} Route: IVP; Site: right antecubital; 02:22 Drug: Zofran 4 mg Route: IVP; Site: right antecubital; ak1 02:23 Follow up: Response: No adverse reaction ak1 03:37 Drug: Rocephin 1 grams Route: IV; Rate: per protocol; Site: right antecubital; ak1 06:06 Follow up: Response: No adverse reaction; IV Status: Completed infusion jd3 06:06 Not Given (Patient Refused): Potassium Effervescent Tablet 25 mEq PO once; dissolve in jd3 4 ounces of water or juice, if ct neg Disposition: 09/29/18 05:59 Discharged to Home. Impression: Abdominal tenderness, Schizophrenia, Functional dyspepsia, Hypokalemia. - Condition is Stable. - Discharge Instructions: Abdominal Pain, Adult, Potassium Content of Foods, Schizophrenia, Abdominal Pain, Adult, [id number], Hypokalemia. - Prescriptions for Bentyl 20 mg Oral Tablet - take 1 tablet by ORAL route every 6 hours As needed; 20 tablet. Pepcid 20 mg Oral Tablet - take 1 tablet by ORAL route every 12 hours for 10 days; 20 tablet. Zofran 4 mg Oral Tablet - take 1 tablet by ORAL route every 12 hours As needed; 20 tablet. - Medication Reconciliation Form, Thank You Letter, Antibiotic Education, Prescription Opioid Use form. - Follow up: Private Physician; When: 2 - 3 days; Reason: Recheck today's complaints, Continuance of care, Re-evaluation by your physician. Follow up: Bhargav Allan; When: 2 - 3 days; Reason: Recheck today's complaints, Re-evaluation by your physician. Follow up: Bairon Biggs; When: 2 - 3 days; Reason: Recheck today's complaints, Re-evaluation by your physician. - Problem is new. - Symptoms have improved. Signatures: Dispatcher [employer] EDMS Chester Madsen MD MD cha Krenek, Amber RN RN ak1 Radames Suarez RN RN jd3 Corrections: (The following items were deleted from the chart) 06:09 05:59 09/29/2018 05:59 Discharged to Home. Impression: Abdominal tenderness; jd3 Schizophrenia; Functional dyspepsia; Hypokalemia. Condition is Stable. Discharge Instructions: Abdominal Pain, Adult, Schizophrenia, Abdominal Pain, Adult, [id number]. Prescriptions for Bentyl 20 mg Oral Tablet - take 1 tablet by ORAL route every 6 hours As needed; 20 tablet, Pepcid 20 mg Oral Tablet - take 1 tablet by ORAL route every 12 hours for 10 days; 20 tablet, Zofran 4 mg Oral Tablet - take 1 tablet by ORAL route every 12 hours As needed; 20 tablet. and Forms are Medication Reconciliation Form, Thank You Letter, Antibiotic Education, Prescription Opioid Use. Follow up: Private Physician; When: 2 - 3 days; Reason: Recheck today's complaints, Continuance of care, Re-evaluation by your physician. Follow up: Bhargav Allan; When: 2 - 3 days; Reason: Recheck today's complaints, Re-evaluation by your physician. Follow up: Bairon Biggs; When: 2 - 3 days; Reason: Recheck today's complaints, Re-evaluation by your physician. Problem is new. Symptoms have improved. elina
[2018-09-29 06:34] VITALS: BP 158/103; TEMP 97.8; O2SAT 100
--- NOTE | 2018-09-29 07:35 | EKG ---
Test Date: 2018-09-29 Test Time: 02:14:05 Executive Secretary Social Welfare: EDELMIRA MEASUREMENT RESULTS: Intervals: Rate: 96 LA: 150 QRSD: 80 QT: 350 QTc: 442 [place]: P: 65 LA: 150 QRS: 56 T: 56 INTERPRETIVE STATEMENTS: Normal sinus rhythm Normal ECG Compared to ECG 02/09/2016 23:15:09 No significant changes Electronically Signed On 09-29-18 07:34:57 CDT by Josafat Thompson
--- NOTE | 2018-09-29 10:34 | RAD REPORT ---
EXAM DESCRIPTION: CT - Abdomen Pelvis W Contrast - 09/29/2018 5:55 am CLINICAL HISTORY: The patient is 43 years old and is Female; ABD PAIN TECHNIQUE: Axial computed tomography images of the abdomen and pelvis with intravenous contrast. S agittal and coronal reformatted images were created and reviewed. This CT exam was performed using one or more of the following dose reduction techniques: automated exposure control, adjustment of t he mA and/or kV according to patient size, and/or use of iterative reconstruction technique. COMPARISON: No relevant prior studies available. FINDINGS: ARTIFACTS: The exam is suboptimal secondary to motion artifact. LUNG BASES: Unremarkable. No mass. No consolidation. ABDOMEN: LIVER: Unremarkable. No mass. GALLBLADDER AND BILE DUCTS: No calcified stones. No ductal dilation. PANCREAS: No ductal dilation. No mass. SPLEEN: Unremarkable. ADRENALS: Unremarkable. No mass. KIDNEYS AND URETERS: Unremarkable. No solid mass. No hydronephrosis. STOMACH AND BOWEL: The stomach is distended with oral contrast and food contents. Oral contrast is present throughout small bowel which is normal in caliber. Oral contrast and stool are noted throu ghout majority the colon. There is no mucosal thickening or evidence of bowel obstruction. PELVIS: APPENDIX: The appendix is normal in caliber without surrounding inflammation. BLADDER: The bladder is well distended. REPRODUCTIVE: A 2.5 cm left ovarian cyst is present. No follow-up imaging is recommended. The ut erus and right ovary are normal. ABDOMEN and PELVIS: INTRAPERITONEAL SPACE: Unremarkable. No free air. No significant fluid collection. BONES/JOINTS: No acute fracture. SOFT TISSUES: The soft tissues are normal. VASCULATURE: Unremarkable. No abdominal aortic aneurysm. LYMPH NODES: Unremarkable. No enlarged lymph nodes. IMPRESSION: No acute findings on this contrasted CT of the abdomen and pelvis to explain the patient 's symptoms. Electronically signed by: Jessenia Osborn MD 09/29/2018 5:43 AM CDT Due to temporary technical issues with the PACS/Fluency reporting system, reports are being signed by the in house radiologist as a courtesy to ensure prompt reporting. The interpreting radiologist is f ully responsible for the content of the report.
== END 2018-09-29 06:09 | disposition home or self-care (01) ==
LOC: ER 01:33
DX: R10.9 Unspecified abdominal pain (principal); F20.9 Schizophrenia, unspecified; K30 Functional dyspepsia; E87.6 Hypokalemia; B19.20 Unspecified viral hepatitis C without hepatic coma; F17.210 Nicotine dependence, cigarettes, uncomplicated; Z88.1 Allergy status to other antibiotic agents
CPT/HCPCS: 36415; 74177; 80048; 80076; 80307; 80320; 80329; 81003; 81025; 83690; 85025; 85610; 85730; 93005; 96361; 96365; 96366; 96375; 99285; J0696; J2405; J7030; Q9967

== ENCOUNTER 2018-09-29 13:38 | Emergency (ER) | payer SELFPAY ==
[2018-09-29] MEDS ORDERED: WATER FOR INJ,STERILE 10 ML ONE (13:54)
[2018-09-29] MEDS ORDERED: ZIPRASIDONE MESYLA 20 MG/VIAL IM ONE (13:54)
[2018-09-29 15:08] LABS: Absolute Lymphocytes (CBC) 2.4 K/uL (0.7-4.9); Basophils % 0.6 % (0-1.3); Hematocrit 39.7 % (36.0-45.0); Lymphocytes % 25.7 % (15.3-44.8); MPV 8.9 fL (7.6-11.3); RBC Red Blood Cell Count 5.34 M/uL (3.86-4.86)
[2018-09-29 15:10] LABS: Barbiturates NEGATIVE (NEGATIVE); Benzodiazepines NEGATIVE (NEGATIVE); Cocaine NEGATIVE (NEGATIVE); METHAMPHETAM POSITIVE (NEGATIVE); Methadone NEGATIVE (NEGATIVE); Opiates NEGATIVE (NEGATIVE); Phencyclidine NEGATIVE (NEGATIVE); THC Cannibis NEGATIVE (NEGATIVE)
[2018-09-29 15:16] LABS: Urine Bacteria <20 /HPF (<20); Urine Culture Reflex Order NOT NEEDED; Urine RBC <5 /HPF (NONE SEEN)
[2018-09-29 15:17] LABS: Protime INR 0.89
[2018-09-29 15:39] LABS: Blood Morphology Comment NOT SEEN (NOT SEEN); Platelet Estimate ADEQ; Urine White Blood Cell Casts OK
[2018-09-29 15:43] LABS: ALT/SGPT 39 U/L (12-78); AST/SGOT 35 U/L (15-37); Albumin 4.1 g/dL (3.4-5.0); Alkaline Phosphatase 102 U/L (45-117); BUN Blood Urea Nitrogen 8 mg/dL (7-18); Bicarbonate 22 mmol/L (21-32); Bilirubin Direct 0.3 mg/dL (0-0.2); Bilirubin Total 1.3 mg/dL (0.2-1.0); Glucose Level 68 mg/dL (74-106); Potassium 3.1 mmol/L (3.5-5.1); Protein, Total 9.4 g/dL (6.4-8.2); Sodium Level 136 mmol/L (136-145)
[2018-09-29 17:05] LABS: Urine Blood NEGATIVE (NEG); Urine Glucose NEGATIVE (NEG); Urine Protein NEGATIVE (NEG); Urine Specific Gravity 1.005 (1.005-1.030)
--- NOTE | 2018-09-29 21:02 | ER ---
Nurse's Notes [facility] Name: Sarita Gutierrez Age: 43 yrs Sex: Female : 1975 Arrival Date: 09/29/2018 Time: 13:44 Bed 8 Private MD: Diagnosis: Suicidal ideations;Hallucinations, unspecified;Schizophrenia Presentation: 09/29 13:40 Initial Sepsis Screen: Does the patient meet any 2 criteria? No. Patient's initial sv sepsis screen is negative. 13:42 Note In the process of retrieving pt's personal items and getting her to change into a sv gown, pt was sitting on the stretcher and jumped off of the stretcher and started rambling loudly and walked outside of the room. Instructed pt to return to her room for her safety. Pt started yelling, screaming, and pacing the room. Pt got her purse and pulled out what appeared to be a phone charging wire. Pt continued screaming, and throwing her arms at me attempting to hit me. I attempted deescalation but pt started rambling and yelling and then placed the wire around her neck tightly. Debra COLON came to assist and witnessed the wire around the neck. Kale Chin called. Instructed pt to remove the wire from her neck, pt removed the wire. Debra RN, Justine COLON, 2 security employees, [place] (facilities), Minh SUMMERS came to the bedside. Minh at pt's bedside attempting to de-escalate the pt. She was able to get her to sit back on the stretcher, but continuing to rock in the bed. Pt able to speak to staff without yelling at this time. Medication order received from Minh SUMMERS. 13:48 Presenting complaint: EMS states: Called out to patient for suicidal ideations. Pt ss reports that she has been hearing voices x 10 years, but does not take any medications. Patient admits to using Meth a few days ago to help with the hallucinations. Patient admitted to EMS personnel that she has been homeless and without food and water for 3 days. Pt admits to recent drug use (Meth) to help the hallucinations. Transition of care: patient was not received from another setting of care. Onset of symptoms is unknown. Risk Assessment: Do you want to hurt yourself or someone else? Patient reports desire/thoughts of hurting themselves or someone else. Provider notified. Initial Sepsis Screen: Does the patient have a suspected source of infection? No. Patient's initial sepsis screen is negative. Care prior to arrival: Glucose check: 108. 13:48 Acuity: JOSE LUIS 2 13:48 Method Of Arrival: EMS: [facility] Triage Assessment: 13:35 General: Appears uncomfortable, Behavior is anxious, flat, restless. Pain: Denies pain. sv Neuro: Level of Consciousness is awake, alert, obeys commands, confused, Oriented to person, Moves all extremities. Gait is steady. Respiratory: Airway is patent Respiratory effort is even, unlabored, Respiratory pattern is regular, symmetrical. Derm: Skin is normal. MGMT SPECIALIST: 22:19 LMP N/A - Irregular menses jd3 Historical: - Allergies: 14:04 Erythromycin; ss - Home Meds: 14:04 Vistaril Oral [Active]; Latuda Oral 1 tab once daily [Active]; hydroxyzine HCl Oral ss [Active]; gabapentin Oral 1 cap 3 times per day [Active]; - PMHx: 14:04 Hepatitis C; Schizophrenia; ss - PSHx: 14:04 Tubal ligation; ss - Immunization history:: Adult Immunizations unknown. - Social history:: Smoking status: unknown. - Ebola Screening: : Unable to complete screening because. Screenin:06 Abuse screen: unknown. Nutritional screening: unknown. Tuberculosis screening: unknown. sv Fall Risk No fall in past 12 months (0 pts). No secondary diagnosis (0 pts). No IV (0 pts). Ambulatory Aid- None/Bed Rest/Nurse Assist (0 pts). Gait- Normal/Bed Rest/Wheelchair (0 pts) Mental Status- Oriented to own ability (0 pts). Total Dykes Fall Scale indicates No Risk (0-24 pts). Assessment: 15:42 Reassessment: Patient appears in no apparent distress at this time. Patient and/or sv family updated on plan of care and expected duration. Pain level reassessed. Pt appears to be resting with eyes closed. 16:30 General: Appears comfortable, well developed, Behavior is calm, sleeping on and off. Pt sv continues to talk to her hallucinations intermittently.. Respiratory: Respiratory effort is even, unlabored, Respiratory pattern is regular, symmetrical. Derm: Skin is normal, no ligature hudson noted to the neck. 18:00 Reassessment: Patient appears in no apparent distress at this time. Patient and/or sv family updated on plan of care and expected duration. Pain level reassessed. Respiratory: Respiratory effort is even, unlabored, Respiratory pattern is regular, symmetrical. 19:10 Reassessment: [facility] sales representative business courses at bedside with sitter. General: Appears jd3 comfortable, Behavior is calm, drowsy. Pain: Denies pain. Neuro: Level of Consciousness is awake, confused, Oriented to person. Cardiovascular: Denies chest pain, nausea, shortness of breath, Capillary refill < 3 seconds Patient's skin is warm and dry. Respiratory: Airway is patent Respiratory effort is even, unlabored, Respiratory pattern is regular, symmetrical, Denies cough, shortness of breath. GI: No signs and/or symptoms were reported involving the gastrointestinal system. : No signs and/or symptoms were reported regarding the genitourinary system. EENT: No signs and/or symptoms were reported regarding the EENT system. Derm: Skin is intact, Skin is dry, Skin is normal. Musculoskeletal: Circulation, motion, and sensation intact. Range of motion: intact in all extremities. 20:05 Reassessment: Patient appears in no apparent distress at this time. Patient and/or jd3 family updated on plan of care and expected duration. Pain level reassessed. pt resting in bed with eyes closed, even and unlabored respirations. sitter at bedside. bed rails up X 2. no distress noted at this time. 21:00 Reassessment: Patient appears in no apparent distress at this time. No changes from [facility] previously documented assessment. Patient and/or family updated on plan of care and expected duration. Pain level reassessed. Patient is alert, oriented x 3, equal unlabored respirations, skin warm/dry/pink. 21:00 General: Behavior is calm, cooperative, drowsy. Neuro: Level of Consciousness is awake, jd3 obeys commands, Oriented to person, place, time, situation. 21:32 Reassessment: Report called to Michelle COLON at [facility]. 22:00 Reassessment: Patient appears in no apparent distress at this time. Patient and/or jd3 family updated on plan of care and expected duration. Pain level reassessed. Patient is alert, oriented x 3, equal unlabored respirations, skin warm/dry/pink. IV discontinued. Patient denies pain at this time. 22:19 Reassessment: Patient appears in no apparent distress at this time. Patient and/or jd3 family updated on plan of care and expected duration. Pain level reassessed. Patient is alert, oriented x 3, equal unlabored respirations, skin warm/dry/pink. report given to EMS. Patient denies pain at this time. Psych: 13:35 Subjective: Patient's mood is elevated, irritable, Delusions are denied, Hallucinations sv are auditory, visual, Having thoughts of suicide. Denies suicidal plan. Suicide Risk Assessment: Sad Person Scale: Sex of patient: Female: Score 0 points. Age of patient: Score 0 point if patient falls outside of specified age parameters. Depression: Score 1 point if signs of depression are present. Previous Attempt: Score 1 point if patient has previously attempted suicide. Substance Abuse: Score 1 point if patient abuses alcohol or drugs. Rational Thinking: Score 1 point if patient is lacking rational thinking. Social Support: Score 1 point if social support is lacking and/or unavailable. Organized Plan: Score 0 if patient did not have an organized plan in place. Relationship: Score 1 point if patient is , , , or for a single male Chronic Sickness: Score 1 point if patient has illness, chronic, debilitating, or severe. TOTAL POINTS: If total points are 7-10, the proposed clinical action is to hospitalize or commit. Implement suicide precautions. 13:35 Objective: Patient is cooperative, irritable, using poor eye contact, restless, Speech sv is rambling, rapid, Affect is flat. Interventions: Patient reassessed during use of restraints. Patient is physically safe. Patient's cardiac status is stable. Patient's respirations are even and unlabored. Patient has good circulation in all extremities as indicated by capillary refill < 3 seconds. Patient's ROM assessed and is intact. Patient nutrition and hydration needs will continue to be monitored and addressed. Patient hygiene and elimination needs met. Patient assessed for signs of distress. Patient remains reasonably comfortable at this time. Assisted patient in de-escalation of behavior by removing stimuli causing behavior where possible. Safety Checks: Door is open. No visitors are present at this time. Patient uses methamphetamines Last use was unknown. 13:50 Interventions: Removed personal items and placed in bag. Searched person for dangerous sv items. Safety Checks: Personal items have been removed. Door is open. 16:09 Interventions: Patient placed in hospital gown. sv 22:20 Commitment: Patient will be a voluntary commitment. jd3 Vital Signs: 13:40 BP 136 / 100; Pulse 105; Resp 18; Temp 98.7; Pulse Ox 99% ; Pain 0/10; sv 18:33 BP 148 / 87; Pulse 88; Resp 15; Temp 98(O); Pulse Ox 99% on R/A; ag4 20:00 BP 131 / 80; Pulse 77; Resp 17 S; Pulse Ox 99% on R/A; jd3 20:41 BP 131 / 80; Pulse 77; Resp 20; Temp 97.9; Pulse Ox 99% ; tr4 ED Course: 13:44 Patient arrived in ED. ss 13:50 Safety Checks: Personal items have been removed. The door is open or patient has been sv placed in a hallway bed/chair. There are no family/friend visitors at this time. 14:00 Minh Ryan PA is [facility]. [facility] 14:00 Safety checks: Items removed: yes. Door open/sign placed on door: yes. Family/friend jb1 present: no. Sitter present: Yes. 14:00 Patient has correct armband on for positive identification. Bed in low position. Call sv light in reach. Head of bed elevated. 14:01 Raffi Giles MD is Attending Physician. jr 14:03 Triage completed. ss 14:04 Mavis Lee RN is Primary Nurse. sv 14:04 Arm band placed on right wrist. ss 14:15 Safety checks: Items removed: yes. Door open/sign placed on door: yes. Family/friend jb1 present: no. Sitter present: Yes. 14:25 Urine collected: clean catch specimen, clear, EKG done, by photovoltaic technician. reviewed by Minh SUMMERS. 14:30 Safety checks: Items removed: yes. Door open/sign placed on door: yes. Family/friend ag4 present: no. Sitter present: Yes. 14:30 Inserted saline lock: 22 gauge in right hand, using aseptic technique. Flushed right sv hand with 5 ml normal saline. 14:45 Safety checks: Items removed: yes. Door open/sign placed on door: yes. Family/friend ag4 present: no. Sitter present: Yes. 14:54 Acetaminophen Sent. sv 14:54 Basic Metabolic Panel Sent. sv 15:00 Safety checks: Items removed: yes. Door open/sign placed on door: yes. Family/friend ag4 present: no. Sitter present: Yes. 15:15 Safety checks: Items removed: yes. Door open/sign placed on door: yes. Family/friend ag4 present: no. Sitter present: Yes. 15:30 Safety checks: Items removed: yes. Door open/sign placed on door: yes. Family/friend ag4 present: no. Sitter present: Yes. 15:34 CBC Smear Scan Sent. sv 15:45 Safety checks: Items removed: yes. Door open/sign placed on door: yes. Family/friend ag4 present: no. Sitter present: Yes. 16:00 Safety checks: Items removed: yes. Door open/sign placed on door: yes. Family/friend ag4 present: no. Sitter present: Yes. 16:15 Safety checks: Items removed: yes. Door open/sign placed on door: yes. Family/friend ag4 present: no. Sitter present: Yes. 16:30 Safety checks: Items removed: yes. Door open/sign placed on door: yes. Family/friend ag4 present: no. Sitter present: Yes. 16:45 Safety checks: Items removed: yes. Door open/sign placed on door: yes. Family/friend ag4 present: no. Sitter present: Yes. 17:00 Safety checks: Items removed: yes. Door open/sign placed on door: yes. Family/friend ag4 present: no. Sitter present: Yes. 17:15 Safety checks: Items removed: yes. Door open/sign placed on door: yes. Family/friend ag4 present: no. Sitter present: Yes. 17:30 Safety checks: Items removed: yes. Door open/sign placed on door: yes. Family/friend ag4 present: no. Sitter present: Yes. 17:45 Safety checks: Items removed: yes. Door open/sign placed on door: yes. Family/friend ag4 present: no. Sitter present: Yes. 17:47 called the [facility] and spoke with Alyce she will page out the screener to come eb out and evaluate the patient. 18:00 Safety checks: Items removed: yes. Door open/sign placed on door: yes. Family/friend ag4 present: no. Sitter present: Yes. 18:15 Safety checks: Items removed: yes. Door open/sign placed on door: yes. Family/friend ag4 present: no. Sitter present: Yes. 18:30 Safety checks: Items removed: yes. Door open/sign placed on door: yes. Family/friend ag4 present: no. Sitter present: Yes. 18:45 Safety checks: Items removed: yes. Door open/sign placed on door: yes. Family/friend ag4 present: no. Sitter present: Yes. 19:00 Safety Checks: Personal items have been removed. The door is open or patient has been jd3 placed in a hallway bed/chair. There are no family/friend visitors at this time Sitter present at this time. 19:06 PHCP role handed off by Minh Ryan PA kb 19:06 Marian Johnston FNP-C is PHCP. kb 19:09 Report given to Sarah COLON and Radames COLON. sv 19:11 Primary Nurse role handed off by Mavis Lee RN sv 19:12 Radames Suarez RN is Primary Nurse. jd3 19:15 Safety Checks: Personal items have been removed. The door is open or patient has been jd3 placed in a hallway bed/chair. There are no family/friend visitors at this time Sitter present at this time. 19:30 Safety Checks: Personal items have been removed. The door is open or patient has been jd3 placed in a hallway bed/chair. There are no family/friend visitors at this time Sitter present at this time. 19:45 Safety Checks: Personal items have been removed. The door is open or patient has been jd3 placed in a hallway bed/chair. There are no family/friend visitors at this time Sitter present at this time. 20:00 Safety Checks: Personal items have been removed. The door is open or patient has been jd3 placed in a hallway bed/chair. There are no family/friend visitors at this time Sitter present at this time. 20:15 Safety Checks: Personal items have been removed. The door is open or patient has been jd3 placed in a hallway bed/chair. There are no family/friend visitors at this time Sitter present at this time. 22:01 Safety checks: Items removed: yes. Door open/sign placed on door: no. Family/friend tr4 present: no. Sitter present: Yes. Safety checks: Items removed:. 22:19 No provider procedures requiring assistance completed. IV discontinued, intact, jd3 bleeding controlled, No redness/swelling at site. Pressure dressing applied. Administered Medications: 14:00 Drug: Geodon 20 mg Route: IM; Site: right vastus lateralis; ss 14:12 Follow up: Response: No adverse reaction sv 22:10 Not Given (Patient Refused): Potassium Chloride 40 mEq PO once jd3 Output: 16:00 Urine: 500ml (Voided); Total: 500ml. sv 17:11 Urine: 800ml (Voided); Total: 1300ml. sv Outcome: 21:02 ER care complete, transfer ordered by MD. kb 22:20 Transferred by ground EMS to [facility], Transfer form completed. jd3 22:20 Condition: stable 22:20 Instructed on the need for transfer, Demonstrated understanding of instructions. 22:23 Patient left the ED. jd3 Signatures: Truman Castorena jb1 Marian Johnston, HOTEL ASSOCIATE-C HOTEL ASSOCIATE-Mavis Mtz RN RN Juani Irwin RN RN fc Smirch, Shelby, RN RN ss Roszak, Josh, PA PA jr8 Davies, Jonathon, RN RN jd3 Melani Vasquez Adan ag4 Antionette Issa tr4 Corrections: (The following items were deleted from the chart) 15:39 15:15 Safety checks: ag4 ag4 16:45 16:30 Safety checks: Items removed: yes. Door open/sign placed on door: yes. ag4 Family/friend present: no. Sitter present: Yes. ag4 22:21 20:05 Reassessment: Patient appears in no apparent distress at this time. Patient jd3 and/or family updated on plan of care and expected duration. Pain level reassessed. pt resting in bed with eyes closed, even and unlabored respirations. sitter at bedside. bed rails up X 2. no distress noted at this time. jd3 22:21 21:00 Reassessment: Patient appears in no apparent distress at this time. No changes jd3 from previously documented assessment. Patient and/or family updated on plan of care and expected duration. Pain level reassessed. Patient is alert, oriented x 3, equal unlabored respirations, skin warm/dry/pink. jd3
--- NOTE | 2018-09-29 21:02 | EDPHYS ---
Physician Documentation [facility] Name: Sarita Gutierrez Age: 43 yrs Sex: Female : 1975 Arrival Date: 09/29/2018 Time: 13:44 Bed 8 Private MD: ED Physician Raffi Giles HPI: 09/29 15:15 This 43 yrs old Female presents to ER via EMS with complaints of Suicidal jr8 Ideation, Psych Problem. 15:15 Onset: The symptoms/episode began/occurred acutely, today. Past psychiatric history: jr8 Prior diagnosis: schizophrenia. Associated signs and symptoms: The patient has no apparent associated signs or symptoms. Severity of symptoms: At their worst the symptoms were moderate in the emergency department the symptoms are unchanged. The patient has experienced similar episodes in the past, a few times. It is unknown whether or not the patient has recently seen a physician. 15:16 Patient with hallucinations causing suicidal ideations. Admits to recent meth use. jr8 Patient currently very aggravated. Pacing around exam room yelling that she cannot stop hearing people . 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 - Social history:: Smoking status: unknown. - Ebola Screening: : Unable to complete screening because. ROS: 15:16 Eyes: Negative for injury, pain, redness, and discharge, ENT: Negative for injury, jr8 pain, and discharge, Neck: Negative for injury, pain, and swelling, Cardiovascular: Negative for chest pain, palpitations, and edema, Respiratory: Negative for shortness of breath, cough, wheezing, and pleuritic chest pain, Abdomen/GI: Negative for abdominal pain, nausea, vomiting, diarrhea, and constipation, Back: Negative for injury and pain, MS/Extremity: Negative for injury and deformity, Skin: Negative for injury, rash, and discoloration, Neuro: Negative for headache, weakness, numbness, tingling, and seizure. 15:16 Psych: Positive for auditory hallucinations, suicidal ideation. Exam: 15:16 Eyes: Pupils equal round and reactive to light, extra-ocular motions intact. Lids and jr8 lashes normal. Conjunctiva and sclera are non-icteric and not injected. Cornea within normal limits. Periorbital areas with no swelling, redness, or edema. ENT: Nares patent. No nasal discharge, no septal abnormalities noted. Tympanic membranes are normal and external auditory canals are clear. Oropharynx with no redness, swelling, or masses, exudates, or evidence of obstruction, uvula midline. Mucous membranes moist. Neck: Trachea midline, no thyromegaly or masses palpated, and no cervical lymphadenopathy. Supple, full range of motion without nuchal rigidity, or vertebral point tenderness. No Meningismus. Cardiovascular: Regular rate and rhythm with a normal S1 and S2. No gallops, murmurs, or rubs. Normal PMI, no JVD. No pulse deficits. Respiratory: Lungs have equal breath sounds bilaterally, clear to auscultation and percussion. No rales, rhonchi or wheezes noted. No increased work of breathing, no retractions or nasal flaring. Abdomen/GI: Soft, non-tender, with normal bowel sounds. No distension or tympany. No guarding or rebound. No evidence of tenderness throughout. Back: No spinal tenderness. No costovertebral tenderness. Full range of motion. Skin: Warm, dry with normal turgor. Normal color with no rashes, no lesions, and no evidence of cellulitis. MS/ Extremity: Pulses equal, no cyanosis. Neurovascular intact. Full, normal range of motion. Neuro: Awake and alert, GCS 15, oriented to person, place, time, and situation. Cranial nerves II-XII grossly intact. Motor strength 5/5 in all extremities. Sensory grossly intact. Cerebellar exam normal. Normal gait. 15:16 Psych: Behavior/mood is anxious, aggressive, suicidal, Affect is animated, Oriented to person, place, time, Patient having thoughts of suicide. Denies suicidal plan. Judgement / Insight is impaired. Memory is normal. Delusions/hallucinations are present and described as hearing non specific voices . Vital Signs: 13:40 BP 136 / 100; Pulse 105; Resp 18; Temp 98.7; Pulse Ox 99% ; Pain 0/10; sv 18:33 BP 148 / 87; Pulse 88; Resp 15; Temp 98(O); Pulse Ox 99% on R/A; ag4 20:00 BP 131 / 80; Pulse 77; Resp 17 S; Pulse Ox 99% on R/A; jd3 20:41 BP 131 / 80; Pulse 77; Resp 20; Temp 97.9; Pulse Ox 99% ; tr4 MDM: 14:01 Patient medically screened. 8 15:51 ED course: Nurse informed me that before I had got into the room that patient took her jr8 phone cord and tried to hang herself with it. Kale sumanth was called at that time which is when I had arrived . 17:30 Data reviewed: vital signs, nurses notes, lab test result(s), EKG. Data interpreted: jr8 Pulse oximetry: on room air is 99 %. Interpretation: normal. Counseling: I had a detailed discussion with the patient and/or guardian regarding: the historical points, exam findings, and any diagnostic results supporting the discharge/admit diagnosis, lab results. ED course: Patient resting comfortably in Exam room. Medically cleared to try and send to [facility] at this time. 19:06 ED course: Pt sleeping comfortably on stretcher. . kb 21:01 ED course: Pt accepted to [facility]. kb 09/29 14:07 Order name: Acetaminophen [facility] 09/29 14:07 Order name: Basic Metabolic Panel [facility] 09/29 14:07 Order name: CBC with Diff; Complete Time: 15:45 [facility] 09/29 14:07 Order name: ETOH Level; Complete Time: 15:48 [facility] 09/29 14:07 Order name: Hepatic Function; Complete Time: 15:48 [facility] 09/29 14:07 Order name: PT-INR; Complete Time: 15:19 [facility] 09/29 14:07 Order name: Ptt, Activated; Complete Time: 15:19 [facility] 09/29 14:07 Order name: Salicylate; Complete Time: 15:45 [facility] 09/29 14:07 Order name: Urine Drug Screen; Complete Time: 15:14 [facility] 09/29 14:08 Order name: Acetaminophen Level; Complete Time: 15:48 [facility] 09/29 14:08 Order name: Basic Metabolic Panel; Complete Time: 15:48 [facility] 09/29 14:40 Order name: Urine Microscopic Only; Complete Time: 15:19 hb 09/29 14:58 Order name: Urine Dipstick--Ancillary (enter results); Complete Time: 17:08 eb 09/29 15:16 Order name: CBC Smear Scan; Complete Time: 15:45 [facility] 09/29 14:07 Order name: EKG; Complete Time: 14:08 [facility] 09/29 14:07 Order name: EKG - Nurse/Tech; Complete Time: 14:46 [facility] 09/29 14:07 Order name: IV Saline Lock; Complete Time: 14:46 [facility] 09/29 14:07 Order name: Labs collected and sent; Complete Time: 14:50 [facility] 09/29 14:07 Order name: Urine Dipstick-Ancillary (obtain specimen); Complete Time: 14:46 [facility] Administered Medications: 14:00 Drug: Geodon 20 mg Route: IM; Site: right vastus lateralis; ss 14:12 Follow up: Response: No adverse reaction sv 22:10 Not Given (Patient Refused): Potassium Chloride 40 mEq PO once jd3 Disposition: 09/29/18 21:02 Transfer ordered to [facility]. Diagnosis are Suicidal ideations, Hallucinations, unspecified, Schizophrenia. - Reason for transfer: Higher level of care. - Accepting physician is Dr Caldwell. - Condition is Stable. - Problem is new. - Symptoms are unchanged. Addendum: 10/03/2018 08:55 Co-signature as Attending Physician, Raffi Giles MD I agree with the assessment and k dr plan of care. Signatures: Dispatcher [employer] [facility] Marian Johnston, MEDICAL STENOGRAPHER-C MEDICAL STENOGRAPHER-Ckb Raffi Giles MD MD [facility] Justine Kilgore RN RN ss Minh Ryan PA PA jr8 Radames Suarez RN RN jd3 Mavis Lee RN sv Corrections: (The following items were deleted from the chart) 09/29 21:03 21:02 09/29/2018 21:02 Transfer ordered to [facility]. Diagnosis is kb Suicidal ideations; Hallucinations, unspecified; Schizophrenia. Reason for transfer: Higher level of care. Accepting physician is Dr Lester. Condition is Stable. Problem is new. Symptoms are unchanged. kb 22:23 21:03 09/29/2018 21:02 Transfer ordered to [facility]. Diagnosis is jd3 Suicidal ideations; Hallucinations, unspecified; Schizophrenia. Reason for transfer: Higher level of care. Accepting physician is Dr Caldwell. Condition is Stable. Problem is new. Symptoms are unchanged. kb
[2018-09-29 22:32] VITALS: O2SAT 99
[2018-09-29 22:35] VITALS: BP 131/80
[2018-09-29 22:36] VITALS: TEMP 97.9
--- NOTE | 2018-09-30 12:37 | EKG ---
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
== END 2018-09-29 22:23 | disposition short-term general hospital (02) ==
LOC: ER 13:38
DX: R45.851 Suicidal ideations (principal); F20.9 Schizophrenia, unspecified; Z88.3 Allergy status to other anti-infective agents
CPT/HCPCS: 36415; 80048; 80076; 80307; 80320; 80329; 81003; 81015; 85025; 85610; 85730; 93005; 96372; 99285; J3486

== ENCOUNTER 2018-12-01 23:25 | Emergency (ER) | payer SELFPAY ==
--- NOTE | 2018-12-02 01:34 | ER ---
Nurse's Notes [facility] Name: Sarita Gutierrez Age: 43 yrs Sex: Female : 1975 Arrival Date: 12/01/2018 Time: 23:29 Bed Waiting Private MD: Diagnosis: ED Course: 12/01 23:29 Patient arrived in ED. cf2 12/02 00:30 Patient's name was called from ER lobby. Unable to locate patient. Will disposition as fc left without being seen by a provider. 00:48 Patient's name was called from ER lobby. Unable to locate patient. Will disposition as fc left without being seen by a provider. 01:10 Josy Pizarro FNP-C is [facility]. snw 01:10 Hiro Melton MD is Attending Physician. snw 01:10 Patient's name was called from ER lobby. Unable to locate patient. Will disposition as fc left without being seen by a provider. Administered Medications: No medications were administered Outcome: 01:33 Patient left the ED. fc Signatures: Josy Pizarro FNP-C FNP-Juani Lindsay RN RN Tere Chavez cf2
== END 2018-12-02 01:33 | disposition left against medical advice (07) ==
LOC: ER 23:25
DX: Z53.21 Procedure and treatment not carried out due to patient leaving prior to being seen by health care provider (principal)

== ENCOUNTER 2021-02-15 15:12 | Emergency (ER) | payer OTHER, SELFPAY ==
--- OUTSIDE RECORDS SUMMARY | 2021-02-15 15:16 | XMS REPORT | Continuity of Care Document ---
:1975 Author Organization [facility] t Address [address] [place] [address] Care Team Providers Name Role Phone PCP, DOES NOT HAVE A Primary Care Physician Unavailable Brandin ALMANZAR Attending Clinician NISHA Attending Clinician Unavailable Omer HALE Attending Clinician Gloria HALE Attending Clinician Nisha ROTH Attending Clinician Candie Abreu Attending Clinician Radha Marinelli Attending Clinician Raeann HALE S Attending Clinician Cece HALE Attending Clinician CECE Attending Clinician Unavailable GLORIA Admitting Clinician Unavailable Gloria HALE Admitting Clinician Cece HALE Admitting Clinician CECE Admitting Clinician Unavailable Payers Payer Name Policy Type Policy Number Effective Date Expiration Date S ource Problems Condition Condition Condition Status Onset Resolution Last Treating Co mments Source Name Details Category Date Date Treatment Clinician Date Methamphet Methamphet Disease Active 2020- U nivers amine amine 1-16 ity of intoxicati intoxic[place] Aspiration Aspiration Disease Active 2020-0 U nivers pneumoniti pneumoniti 2-24 it y of s s 00:00: [address] Branch Obesity Obesity Disease Active 2020-0 Univers (BMI (BMI 2-24 ity of 30-39.9) 30-39.9) 00:00: [place] 00 Medical Branch Allergies, Adverse Reactions, Alerts Allergy Allergy Status Severity Reaction(s) Onset Inactive Treating Comm ents Source Name Type Date Date Clinician ERYTHROM DRUG Active Unknown-Cmnt 2008-03 Un claire YCIN 03-24 ity of 00:00: [place] 00 Medical Branch PENICILL Drug Active Rash 2008-03 Univers INS Class 03-24 ity of 00:00: Medical Branch Erythrom Propensi Active Unknown - 2008-03 Uni vers ycin ty to See comments 03-24 ity of adverse 00:00: [place] reaction Medical s Branch Penicill Propensi Active Rash 2008-03 Univer s ins ty to 03-24 ity of adverse 00:00: [place] reaction Medical s Branch Social History Social Habit Start Date Stop Date Quantity Comments Source History SDND University o f Alcohol Comment [place] [facility] Exposure to Unable to assess Univers ity of SARS-CoV-2 [place] [facility] (event) Branch History SDOH University o f Alcohol Frequency [facility] [place] edical Branch History [facility] University o f Alcohol Std [place] [facility] Drinks Branch Tobacco use and 2021-01-14 2021-01-14 Never used Universit y of exposure 00:00:00 00:00:00 [facility] Education 2021-01-14 2021-01-14 21 University 00:00:00 00:00:00 [facility] Alcohol intake 2021-01-14 2021-01-14 6 /d [place] of 00:00:00 00:00:00 [place] [facility] [place] History SDOH 2019-04-24 2019-04-24 5 University o f Alcohol Binge 00:00:00 00:00:00 [place] [facility] al Branch Sex [birth year] Universit y of 00:00:00 00:00:00 [facility] Smoking Status Start Date Stop Date Source Current every day 2021-01-14 00:00:00 [facility] smoker [facility] Former smoker 2019-04-24 00:00:00 2019-04-24 00:00:00 [facility] Medications Ordered Filled Start Stop Current Ordering Indication Dosage Frequency Signature Comments Components Source Medication Medication Date Date Medication? Clinician (SIG) Name Name enoxaparin 2020-03 Yes 40mg 40 mg, Unive rs (LOVENOX) 16 Subcutaneo ity of injection 23:00: [place], [place]ILY, [place] 40 mg 00 First dose Medical on Branch 01/14/21 at 1700, Until Discontinu ed, Routine sulfur 2020-03- No [id number] 5mL 5 mL, Univ ers hexafluorid -14 01-16 Intravenou i ty of e microsphr 17:30: 17:30 s, ONCE, 1 [place] (LUMASON) 00 :00 dose, On Medica l injection 5 Wed [facility] 01/14/21 at 1130, Routine
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 omeprazole 2020-03 Yes Take by Uni vers magnesium 1-16 mouth 2 ity of (PRILOSEC 16:27: (two) [place] ORAL) 17 times Medical daily. Branch GABAPENTIN 2020-03 Yes 1800mg Take 1,800 Univers ORAL 1-16 mg by ity of 16:27: mouth 3 [place] 17 (three) Medical times Branch daily. omeprazole 2020-03 Yes Take by Uni vers magnesium 1-16 mouth 2 ity of (PRILOSEC 16:27: (two) [place] ORAL) 17 times Medical daily. Branch LORazepam 2020-03 Yes .5mg 0.5 mg, Unive rs (ATIVAN) -16 Slow IV ity of injection 14:40: Push, [place] 0.5 mg 29 Q4HPRN, Medical Starting Branch on Wed01/14/21 at 0840, Until Discontinu ed, Routine, Agitation NaCl 0.9% 2020-03 Yes 1000mL at 125 Univ ers (NS) IV 1-16 mL/hr, IV ity of infusion 12:00: Infusion, [place] 1,000 mL 00 CONTINUOUS Medic al , Starting Branch on Wed01/14/21 at 0600, Until Discontinu ed, Routine NaCl 0.9% 2020-03- No 1000mL at 999 Uni vers (NS) bolus 1-16 11-16 mL/hr, ity of infusion 08:15: 07:19 1,000 mL, [place] as 1,000 mL 00 :00 IV Medical Infusion, Branch ONCE, 1 dose, On Wed01/14/21 at 0215, STAT haloperidol 2020-2020- No 5mg 5 mg, Univ ers lactate -16 01-14 Intramuscu ity o f (HALDOL) 07:30: 06:38 [place], ONCE, [place] injection 5 00 :00 1 dose, On Me dical mg [facility] 01/14/21 at 0130, STAT GABAPENTIN 2020-0 Yes 1800mg Take 1,800 Univers ORAL 2-25 mg by ity of 22:41: mouth 3 [place] [id number] (three) Medical times Branch daily. omeprazole 2020-0 Yes Take by Uni vers magnesium 2-25 mouth 2 ity of (PRILOSEC 22:41: (two) [place] ORAL) 53 times Medical daily. Branch GABAPENTIN 2020-0 Yes 1800mg Take 1,800 Univers ORAL 2-25 mg by ity of 22:41: mouth 3 [place] 53 (three) Medical times Branch daily. omeprazole 2020-0 Yes Take by Uni vers magnesium 2-25 mouth 2 ity of (PRILOSEC 22:41: (two) [place] ORAL) 53 times Medical daily. Branch GABAPENTIN 2020-0 Yes 1800mg Take 1,800 Univers ORAL 2-25 mg by ity of 22:41: mouth 3 [place] 53 (three) Medical times Branch daily. omeprazole 2020-0 Yes Take by Uni vers magnesium 2-25 mouth 2 ity of (PRILOSEC 22:41: (two) [place] ORAL) 53 times Medical daily. [place] clindamycin 2020-0 Yes 600mg 600 mg, IV Univers in d5w 04-25 Piggyback, ity of (CLEOCIN) 22:00: Q8H ABXRadha s 600 mg/50 00 First dose Medi femi mL on [facility] Piggyback 04/25/19 at 600 mg 1600, Until Discontinu ed, 50 mL
Reas on for Anti-Infec tive: Documented Infection< br>Documen bhargav Infection Site: Respirator y
Durat ion of Therapy: 7 days
Re stricted use approved by: ADC PROVIDER bisacodyL 2019-0 2020- No [facility] 10 [facility] 2-25 02-25 Rectal, ity o f suppository 19:30: 18:23 ONCE, 1 [place] 10 mg 00 :00 dose, [facility] Medical 04/25/19 at Branch 1330, Routine clindamycin 2020-0 2020- No [id number] 300mg Take 1 Univers 300 mg 04-25 capsule by ity of capsule 00:00: 05:59 mouth 4 [place] 00 :00 (four) Medical times [place] daily for 5 days. lidocaine 5 2020-0 2020- No [id number] 1{patch Apply 1 Univers % (700 04-25 } Patch to ity of mg/patch) 00:00: 05:59 area(s) [place] patch 00 :00 every 24 Medical ([facility] ur) hours as needed for Localized pain for up to 2 days. acetaminoph 2019-0 Yes 650mg 650 mg, Un claire en 2-24 Oral, ity of (TYLENOL) 15:15: Q4HPRN, [place] tablet 650 00 Starting Medic al mg [facility] 04/24/19 at 0915, Until Discontinu ed, Routine, Pain (scale 1-3) ibuprofen 2019-0 Yes 600mg 600 mg, Univ ers (IBU) 2-24 Oral, TID ity of tablet 600 15:15: MEALS, [place] mg 00 First dose Medical on [facility] 04/24/19 at 0915, Until Discontinu ed, Routine psyllium 2019-0 Yes 1{packe 1 Packet, U nivers (METAMUCIL 2-24 t} Oral, ity of FIBER 15:00: DAILY, [place] SINGLES) 00 First dose Medic al 3.4 gram on [facility] packet 1 04/24/19 at Packet 0900, Until Discontinu ed, Routine Sliding 2019-0 Yes Subcutaneo Univ ers Scale 2-24 us, TID ity of Insulin - 14:00: MEALS+HS, [place] as Aspart 00 First dose Medical (NOVOLOG) + on [facility] Fsbg 04/24/19 at Testing 0800, Until Discontinu ed, Routine gabapentin 2020-0 Yes 1200mg 1,200 mg, Univers (NEURONTIN) 2-24 Oral, TID, it y of capsule 14:00: First dose [place] 1,200 mg 00 on [facility] Medical 04/24/19 at Branch 0800, Until Discontinu ed, Routine ipratropium 2020-0 Yes 3mL 3 mL, Unive rs -albuterol 2-24 Inhalation ity of (DUONEB) 14:00: , QID, [place] 0.5 mg-3 00 First dose Medic al mg(2.5 mg on Mon Branch base)/3 mL 04/24/19 at nebulizer 0800, solution 3 Until mL Discontinu ed, Routine clindamycin 2020-0 2020- No 600mg 600 mg, IV Univers in d5w 2-24 02-25 Piggyback, ity of (CLEOCIN) 14:00: 20:47 Q8H ABX, [place] 600 mg/50 00 :36 First dose Medi femi mL 600 mg on Wed Branch piggyback 04/24/19 at 0800, Until Discontinu ed
Reas on for Anti-Infec tive: Documented Infection< br>Documen bhargav Infection Site: Respirator y
Durat ion of Therapy: 7 days
Re stricted use approved by: ADC PROVIDER glucagon 2020-0 Yes 1mg 1 mg, Univers (GLUCAGEN 2-24 Intramuscu ity of DIAGNOSTIC 12:49: lar, PRN, [place] KIT) 20 Starting Medical injection 1 Mon Branch mg 04/24/19 at 0649, Until Discontinu ed, ROSALINDA, Blood Glucose < or = 70 mg/dL and patient is unable to swallow or has mental changes. dextrose 50 2020-0 Yes 25mL 25 mL, Univ ers % in water 2-24 Slow IV ity of (D50W) 12:49: Push, PRN, [place] injection 20 Starting Medica l 25 mL Mon Branch 04/24/19 at 0649, Until Discontinu ed, ROSALINDA, Blood Glucose < or = 70 mg/dL and patient is unable to swallow or has mental status changes. lidocaine 2020-0 Yes 1{patch 1 Patch, U nivers (LIDODERM) 2-24 } Topical, ity o f 5 % (700 12:47: Administer [place] as mg/patch) 45 over 12 Medical patch 1 Hours, Branch Patch [id number], Starting 04/24/19 at 0647, Until Discontinu ed, Routine, Localized pain famotidine 2020-0 Yes 20mg 20 mg, Unive rs (PEPCID AC) 2-24 Oral, ity of tablet 20 09:17: BIDPRN, [place] mg 42 Starting Medical Mon Branch 04/24/19 at 0317, Until Discontinu ed, Routine, Indigestio n, Heartburn ipratropium 2020-0 Yes 3mL 3 mL, Unive rs -albuterol 2-24 Inhalation ity of (DUONEB) 09:10: , Q2HPRN, [place] 0.5 mg-3 08 Starting Medical mg(2.5 mg [facility] base)/3 mL 04/24/19 at nebulizer 0310, solution 3 Until mL Discontinu ed, Routine, Shortness of Breath, Wheezing, Bronchospa sm hydralAZINE 2019-0 Yes 10mg 10 mg, Univ ers (APRESOLINE 2-24 Intravenou it y of ) injection 09:08: s, Q6HPRN, [place] 10 mg 27 Starting Medical [facility] 04/24/19 at 0308, Until Discontinu ed, Routine, Hypertensi on NaCl 0.9% 0 2020- No 1000mL at 100 Uni vers (NS) IV 04-24-24 mL/hr, IV ity of infusion 09:00: 15:04 Infusion, [place] 1,000 mL 00 :15 CONTINUOUS Medic al , Starting Branch [facility] 04/24/19 at 0300, Until Wed04/24/19 at 0904, Routine ondansetron 2019-0 Yes 4mg 4 mg, Slow Univers (ZOFRAN 2-24 IV Push, ity of (PF)) 08:42: Q6HPRN, [place] injection 4 58 Starting Medi femi mg [facility] 04/24/19 at 0242, Until Discontinu ed, Routine, Nausea and Vomiting (N/V) docusate 2019-0 Yes 100mg 100 mg, Unive rs (COLACE) 2-24 Oral, ity of capsule 100 08:42: BIDPRN, [place] mg 45 Starting Medical [facility] 04/24/19 at 0242, Until Discontinu ed, Routine, Constipati on acetaminoph 2019-0 2020- No 650mg 650 mg, U nivers en - 02-24 Oral, ity of (TYLENOL) 08:42: 15:07 Q6HPRN, [place] tablet 650 00 :27 Starting Medic al mg [facility] 04/24/19 at 0242, Until [facility] 04/24/19 at 0907, Routine, Pain (scale 1-3) clindamycin 2019- No 600mg 600 mg, IV Univers in d5w 04-24 Piggyback, ity of (CLEOCIN) 07:15: 06:16 ONCE, 1 [place] 600 mg/50 00 :00 dose, Mon Medic al mL 04/24/19 at [place] Piggyback 0115, 50 600 mg mL
Reas on for Anti-Infec tive: Documented Infection< br>Documen bhargav Infection Site: Respirator y
Durat ion of Therapy: Other (see Comments)< br>Restric bhargav use approved by: ADC PROVIDER NaCl 0.9% 2020- No 1000mL at 999 Uni vers (NS) IV 04-24- mL/hr, ity of infusion 05:00: 15:04 Intravenou [place] 1,000 mL 00 :15 s, [facility] , Starting 04/23/19 at 2300, Until 04/24/19 at 0904, Routine iohexol 2019- No 120mL 120 mL, Unive rs (OMNIPAQUE 04-24 Intravenou it y of 350 04:30: 04:13 s, ONCE, 1 [place] BULK-100 00 :00 dose, [place] [facility] mL) 04/23/19 at [place] injection 2230, 120 mL Routine NaCl 0.9% 0 2020- No 1000mL at 999 Uni vers (NS) IV 04-24- mL/hr, ity of infusion 03:00: 15:04 Intravenou [place] 1,000 mL 00 :15 s, [facility] , Starting 04/23/19 at 2100, Until 04/24/19 at 0904, Routine ketorolac 2020- No 30mg 30 mg, Unive rs (TORADOL) 04-24 Slow IV ity of injection 03:00: 02:14 Push, [place] 30 mg 00 :00 ONCE, 1 Medical dose, [facility] 04/23/19 at 2100, Routine
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 Restricted medication : RUFINO CARY Yes Take one Unive rs VIT-FA ORAL 4-27 tablet by ity of TAB 00:00: mouth [place] 00 daily [facility] DOCUSATE Yes Take one Unive rs CALCIUM 240 4-27 capsule by it y of MG ORAL CAP 00:00: mouth [place] 00 daily as Medical needed for Branch constipati on FERROUS Yes Take one Univer s SULFATE 325 4-27 tablet by ity of MG (65 MG 00:00: mouth [place] IRON) ORAL 00 twice Medical TAB daily Branch HYDROCODONE Yes Take one Un claire -ACETAMINOP 4-27 to two ity of HEN 5-325 00:00: tablets by [place] MG ORAL TAB 00 mouth Medical every six Branch hours as needed for pain IBUPROFEN Yes Take one Univ ers 600 MG ORAL 4-27 tablet by ity of TAB 00:00: mouth [place] 00 every six Medical hours as Branch needed for pain Yes Take one Unive rs VIT-FA ORAL 4-27 tablet by ity of TAB 00:00: mouth [place] 00 daily Medical Branch DOCUSATE Yes Take one Unive rs CALCIUM 240 4-27 capsule by it y of MG ORAL CAP 00:00: mouth [place] 00 daily as Medical needed for Branch constipati on FERROUS Yes Take one Univer s SULFATE 325 4-27 tablet by ity of MG (65 MG 00:00: mouth [place] IRON) ORAL 00 twice Medical TAB daily Branch HYDROCODONE Yes Take one Un claire -ACETAMINOP 4-27 to two ity of HEN 5-325 00:00: tablets by [place] MG ORAL TAB 00 mouth Medical every six Branch hours as needed for pain IBUPROFEN Yes Take one Univ ers 600 MG ORAL 4-27 tablet by ity of TAB 00:00: mouth [place] 00 every six Medical hours as Branch needed for pain Yes Take one Unive rs VIT-FA ORAL 4-27 tablet by ity of TAB 00:00: mouth [place] 00 daily Medical Branch DOCUSATE Yes Take one Unive rs CALCIUM 240 4-27 capsule by it y of MG ORAL CAP 00:00: mouth [place] 00 daily as Medical needed for Branch constipati on FERROUS Yes Take one Univer s SULFATE 325 4-27 tablet by ity of MG (65 MG 00:00: mouth [place] IRON) ORAL 00 twice Medical TAB daily Branch HYDROCODONE Yes Take one Un claire -ACETAMINOP 4-27 to two ity of HEN 5-325 00:00: tablets by [place] MG ORAL TAB 00 mouth Medical every six Branch hours as needed for pain IBUPROFEN Yes Take one Univ ers 600 MG ORAL 4-27 tablet by ity of TAB 00:00: mouth [place] 00 every six Medical hours as Branch needed for pain Yes Take one Unive rs VIT-FA ORAL 4-27 tablet by ity of TAB 00:00: mouth [place] 00 daily Medical Branch DOCUSATE Yes Take one Unive rs CALCIUM 240 4-27 capsule by it y of MG ORAL CAP 00:00: mouth [place] 00 daily as Medical needed for Branch constipati on FERROUS Yes Take one Univer s SULFATE 325 4-27 tablet by ity of MG (65 MG 00:00: mouth [place] IRON) ORAL 00 twice Medical TAB daily Branch Yes Take one Unive rs VIT-FA ORAL 4-27 tablet by ity of TAB 00:00: mouth [place] 00 daily Medical Branch DOCUSATE Yes Take one Unive rs CALCIUM 240 4-27 capsule by it y of MG ORAL CAP 00:00: mouth [place] 00 daily as Medical needed for Branch constipati on FERROUS Yes Take one Univer s SULFATE 325 4-27 tablet by ity of MG (65 MG 00:00: mouth [place] IRON) ORAL 00 twice Medical TAB daily Branch HYDROCODONE Yes Take one Un claire -ACETAMINOP 4-27 to two ity of HEN 5-325 00:00: tablets by [place] MG ORAL TAB 00 mouth Medical every six Branch hours as needed for pain IBUPROFEN Yes Take one Univ ers 600 MG ORAL 4-27 tablet by ity of TAB 00:00: mouth [place] 00 every six Medical hours as Branch needed for pain HYDROCODONE Yes Take one Un claire -ACETAMINOP 4-27 to two ity of HEN 5-325 00:00: tablets by [place] MG ORAL TAB 00 mouth Medical every six Branch hours as needed for pain IBUPROFEN Yes Take one Univ ers 600 MG ORAL 4-27 tablet by ity of TAB 00:00: mouth [place] 00 every six Medical hours as Branch needed for pain Immunizations Ordered Filled Immunization Date Status Comments [facility] e Immunization Name Name SARS-COV-2 COVID-19 2020-08-29 Completed Unive rsity of MODERNA VACCINE 00:00:00 [place] Med ical Branch SARS-COV-2 COVID-19 2020-08-29 Completed Unive rsity of MODERNA VACCINE 00:00:00 [facility] ical Branch SARS-COV-2 COVID-19 2020-07-29 Completed Unive rsity of MODERNA VACCINE 00:00:00 [facility] Branch SARS-COV-2 COVID-19 2020-07-29 Completed Unive rsity of MODERNA VACCINE 00:00:00 [facility] Vital Signs Vital Name Observation Time Observation Value Comments Source Systolic blood 2021-01-14 20:00:00 126 mm[Hg] Univer sity of pressure [facility] Diastolic blood 2021-01-14 20:00:00 75 mm[Hg] Unive rsity of pressure [facility] Heart rate 2021-01-14 20:00:00 84 /min Universi ty of [facility] Respiratory rate 2021-01-14 20:00:00 15 /min Univ ersity of [place] [facility] Oxygen saturation in 2021-01-14 20:00:00 96 /min University of Arterial blood by [facility] Pulse oximetry Branch Body temperature 2021-01-14 18:00:00 36.83 Alize Univ ersity of [facility] Branch Body height 2021-01-14 09:31:00 162.6 cm Universi ty [facility] [place] [facility] Body weight 2021-01-14 09:31:00 90.493 kg Universi ty [facility] [place] [facility] BMI 2021-01-14 09:31:00 34.24 kg/m2 Universi ty [facility] [place] [facility] Heart rate 2019-04-25 21:15:00 85 /min Universi ty [facility] Medical Branch Respiratory rate 2019-04-25 21:15:00 18 /min Univ ersity of [place] [facility] Oxygen saturation in 2019-04-25 21:15:00 98 /min University of Arterial blood by [place] [employer] femi Pulse oximetry Branch Systolic blood 2019-04-25 17:47:00 135 mm[Hg] Univer sity of pressure [place] [facility] Diastolic blood 2019-04-25 17:47:00 81 mm[Hg] Unive rsity of pressure [place] [facility] [place] Body temperature 2019-04-25 17:47:00 36.5 Alize Univ ersity of [place] [facility] Branch Body height 2019-04-24 14:00:00 162.6 cm [facility] Body weight 2019-04-24 01:14:00 81.647 kg [facility] BMI 2019-04-24 01:14:00 30.90 kg/m2 [facility] Procedures Procedure Date / Time Performing Clinician Source Performed TRANSTHORACIC ECHO (TTE) 2021-01-14 Sally Hui [facility] COMPLETE W/ CONTRAST 16:15:00 [facility] TROPONIN I 2021-01-14 [facility] [place] 14:40:00 [facility] LACTIC ACID WHOLE BLOOD 2021-01-[facility] 11:09[facility] [facility] [address] HEAD WO CONTRAST 2021-01-14 Omer Kenji Kirklin o f [place] 08:09:00 [facility] URINALYSIS 2021-01-14 Omer [facility] xas 06:59:00 [facility] URINE DRUG (IMMUNOASSAY) 2021-01-14 Kenji Tello [facility] - COMPREHENSIVE DRUG 06:59:00 [facility] SCREEN W/O REFLEX CREATINE KINASE 2021-01-14 Omer [facility] xas 06:52:00 [facility] LIPASE 2021-01-14 Omer [facility] xas 06:52:00 [facility] MAGNESIUM 2021-01-14 Omer [facility] xas 06:52:00 Medical [place] TROPONIN I 2021-01-14 Omer [facility] xas 06:52:00 [facility] FREE T4 2021-01-14 Omer [facility] xas 06:52:00 [facility] THYROID STIMULATING 2021-01-14 Omer [facility] o f [place] HORMONE 06:52:00 [facility] COMP. METABOLIC PANEL 2021-01-14 Omer [facility] ([id number]) 06:52:00 [facility] Branch SALICYLATE 2021-01-14 Omer [facility] xas 06:52:00 [facility] ETHANOL 2021-01-14 Omer [facility] xas 06:52:00 [facility] CBC WITH DIFF 2021-01-14 Omer [facility] xas 06:52:00 [facility] PROTHROMBIN TIME / INR 2021-01-14 Omer [facility] 06:52:00 [facility] Branch ACTIVATED PARTIAL 2021-01-14 Omer [facility] THRMPLAS ROBERTO 06:52:00 [facility] Branch N-TERMINAL PRO-BNP 2021-01-14 Omer [facility] 06:52:00 [facility] Branch COVID-19 (ID NOW RAPID 2021-01-14 Omer [facility] TESTING) 06:52:00 [facility] Branch LAB ONLY COVID 2021-01-14 Omer [facility] INTERPRETATION 06:52:00 [facility] LACTIC ACID WHOLE BLOOD 2021-01-14 Kenji Tello [facility] 06:51:00 [facility] XR KNEE <3 VW RIGHT 2019-11-22 Rabia Marinelli [facility] 14:19:42 [facility] POCT GLUCOSE (AUTOMATED) 2019-04-25 [facility] 17:47:00 [facility] POCT GLUCOSE (AUTOMATED) 2019-04-25 Cece [facility] 13:30:00 [facility] CBC WITH DIFFERENTIAL 2019-04-25 [facility] 09:46:00 [facility] CREATINE KINASE 2019-04-25 [facility] 09:46:00 [facility] TROPONIN I 2019-04-25 [facility] 09:46:00 [facility] BASIC METABOLIC PANEL 2019-04-25 [facility] (NA, K, CL, CO2, 09:46:00 [facility] GLUCOSE, BUN, CREATININE, CA) POCT GLUCOSE (AUTOMATED) 2019-04-25 Cece [facility] 02:00:00 [facility] POCT GLUCOSE (AUTOMATED) 2019-04-24 Cece [facility] 22:38:00 [facility] POCT GLUCOSE (AUTOMATED) 2019-04-24 Cece [facility] 17:20:00 [facility] POCT GLUCOSE (AUTOMATED) 2019-04-24 Cece [facility] 13:38:00 [facility] BLOOD CULTURE SCREEN 2019-04-[address] [facility] 04:33:[address] [facility] [address] ABDOMEN PELVIS W 2019-04-[address] [facility] CONTRAST 04:20:[address] [facility] [address] THORAX W CONTRAST 2019-04-[address] [facility] 04:20:57 [facility] URINALYSIS 2019-04-24 [facility] 04:20:00 [facility] BLOOD CULTURE SCREEN 2019-04-[address] [facility] 04:20:00 [facility] TEST, URINE 2019-04-24 [facility] 04:20:[address] [facility] [address] HEAD WO CONTRAST 2019-04-[address] [facility] 04:09:49 [facility] POCT TEST 2019-04-24 [facility] 02:16[facility]00 [facility] ADC / [facility] - DRUG SCREEN 2019-04-24 PurnimamsRufino [facility] TRIAGE 01:57:00 [facility] SALICYLATE 2019-04-24 [facility] ex 01:57:00 [facility] Branch ETHANOL 2019-04-24 [facility] ex 01:57:00 Medical Branch XR CHEST 1 VW 2019-04-24 [facility] 01:56[facility]34 [facility] GLYCOSYLATED HEMOGLOBIN 2019-04-24 [facility] (A1C) 01:40:00 [facility] COMP. METABOLIC PANEL 2019-04-24 [facility] ([id number]) 01:40:00 [facility] CBC WITH DIFFERENTIAL 2019-04-24 [facility] 01:40:00 [facility] EKG-12 LEAD 2019-04-24 [facility] ex 01:25:02 [facility] EKG-12 LEAD 2019-04-24 [facility] ex 01:17:52 Medical Branch Encounters Start End Encounter Admission Attending Care Care Encounter Source Date/Time Date/Time Type Type Clinicians Facility Department ID 2021-01-152021-01-15 Transition JUAN Ghotra [id number] Univers 00:00:00 00:00:00 of Care Sejal ESTRELLA 350.1.13.10 [place] [place] [phone] [facility] [address] 2021-01-14 2021-01-14 Inpatient X NISHA [facility] [id number] Univers 00:24:00 16:27:00 SALLY ity of [facility] 2021-01-14 2021-01-14 [facility] Kenji Tello [facility] 1.2.840.1 [id number] Univers 00:24:00 16:27:00 Encounter Carol Yates 350.1.13.10 ity of Sally Hui 4.2.7.2.[address] [facility] [phone] [facility] [address] 2020-05-16 2020-05-16 [facility] 1.2.840.114 [id number] Univers 05:25:37 23:59:00 Encounter Foreign SANDOVAL 350.1.13.10 ity of CARE 4.2.7.2.686 [facility] [place] [facility] [id number] Ia miguel POTTS 826 [facility] 2019-11-22 2019-11-22 Hospital Artur Marinelli 1.2.840.114 [id number] Univers 09:15:47 23:59:00 Encounter Rabia Garcia [facility] 350.1.13.10 [place] [place] [id number] [facility] [address] 2019-04-23 2019-04-25 Emergency Rufino Cary S [facility] 1.2.840 .114 [id number] Univers 19:10:17 16:20:00 Dara Zhao 350.1.13.10 ity of [place].[address] [place] [facility] [phone] [facility] [address] 2019-04-23 2019-04-25 Outpatient X CECE [facility] SHAINA [id number] Univers 19:10:17 16:20:00 DARA [facility] Results Test Description Test Time Test Comments Results Result Comments Source TROPONIN I 2021-01-14 16:17:41 Test Item Value Reference Range Interpretation Comme nts TROPONIN I (test code = 0.004 ng/mL See_Comment [Au tomated message] The [id number]) system which ge nerated this result tra nsmitted reference range : <=0.034. The reference r gabriela was not used to int erpret this result as normal/abnormal . CHELSEA (test code = CHELSEA) Reference (Normal) Range (defined by the 99th percentile reference limit): <= 0.034 ng/mL Note: Cardiac troponin begins to rise 3-4 hours after the onset of ischemia. Repeat in 4-6 hours if the sample was drawn within 3-4 hours of the onset of the symptom and found normal. Diagnosis of myocardial injury is made with acute changes in cTn concentrations with at least one serial sample above the 99th percentile upper reference limit (URL), taken together with the patient's clinical presentation. Biotin has been reported to cause a negative bias, interpret results relative to patient's use of biotin. Lab Interpretation Normal (test code = 21577-0) [facility] [id number] 07:55:46 Test Item Value Reference Range Interpretation Comments TSH (test code = See_Comment [Automated message] [id number]) The system DEXMA generated this result transmitted ref erence range: 0.45 - 4 .70 mIU/L. The refe rence range was not u sed to interpret this result as normal/abnor mal. Lab Interpretation (test Normal code = 01631-1) [facility] Dallas[facility] [id number] 07:42:27 Test Item Value Reference Range Interpretation Comments FREE T4 (test code = See_Comment [Autom ated message] [id number]) The system DEXMA generated this result transmitted ref erence range: 0.78 - 2 .20 ng/dL:. The ref erence range was not u sed to interpret this result as normal/abnor mal. Lab Interpretation (test Normal code = 31321-8) [facility] DallasTROPONIN [id number] 07:37:25 Test Item Value Reference Interpretation Comments Range TROPONIN I (test 0.004 ng/mL See_Comment [Automated code = 2107504612) message] The system which generated this result transmitted reference range : <=0.034. The reference range was not used to interpret this result as normal/abnormal . CHELSEA (test code = Reference (Normal) CHELSEA) Range (defined by the 99th percentile reference limit): <= 0.034 ng/mL Note: Cardiac troponin begins to rise 3-4 hours after the onset of ischemia. Repeat in 4-6 hours if the sample was drawn within 3-4 hours of the onset of the symptom and found normal. Diagnosis of myocardial injury is made with acute changes in cTn concentrations with at least one serial sample above the 99th percentile upper reference limit (URL), taken together with the patient's clinical presentation. Biotin has been reported to cause a negative bias, interpret results relative to patient's use of biotin. Lab Interpretation Normal (test code = 98382-3) [facility] DallasN-TERMINAL [id number] 07:34:24 Test Item Value Reference Range Interpretation Comments NT-proBNP (test code 31 pg/mL See_Comment [Autom ated = 7469510747) message] The system which generated this result transmitted reference range : <=125. The reference range was not used to interpret this result as normal/abnormal . CHELSEA (test code = CHELSEA) Biotin has been reported to cause a negative bias, interpret results relative to patient's use of biotin. Lab Interpretation Normal (test code = 78121-4) [facility] DallasETHANOL2021-11-16 07:26:27 Test Item Value Reference Range Interpretation Comments ALCOHOL (test code = <10 mg/dL 5876384532) CHELSEA (test code = CHELSEA) <10 Ruiflvdr33-990 Toxic>100 Depression of PRIMARY CARE NURSE>400 Fatalities Reported [facility] DallasSALICYLATE2021-11-16 07:26:12 Test Item Value Reference Range Interpretation Comments SALICYLATE (test code <10 mg/L = 5337363679) CHELSEA (test code = CHELSEA) Therapeutic Range: ? Analgesic and Antipyretic Use ? 20-100 mg/L ? ? Anti-Inflammatory Use ? 100-250 mg/L Toxic Range: ? Greater than 300 mg/L [facility] DallasACETAMINOPHEN2021-11-16 07:26:07 Test Item Value Reference Range Interpretation Comments ACETAMINOP (test code = <10.0 10.0-30.0 L 3294658200) CHELSEA (test code = CHELSEA) Toxic: Greater than 200 ug/mL @ 4 hour post ingestion or greater than 50 ug/mL @ 12 hour post ingestion Lab Interpretation (test Abnormal code = 95892-0) [facility]. METABOLIC PANEL (19162)2021-01-14 07:25:42 Test Item Value Reference Range Interpretation Comments NA (test code = 137 mmol/L 135-145 1785569021) K (test code = 4.7 mmol/L 3.5-5.0 5930798866) CL (test code = 105 mmol/L 98-108 2888029273) CO2 TOTAL (test code = 22 mmol/L 23-31 L 7949213611) AGAP (test code = 2-16 7761055470) BUN (test code = 7 mg/dL 7-23 2519670605) GLUCOSE (test code = 131 mg/dL 70-110 H 2727129014) CREATININE (test code = 0.66 mg/dL 0.50-1.04 0350393400) TOTAL BILI (test code = 0.8 mg/dL 0.1-1.4 7597777130) CALCIUM (test code = 9.8 mg/dL 8.6-10.6 2642443634) T PROTEIN (test code = 8.4 g/dL 6.3-8.2 H 2408329143) ALBUMIN (test code = 4.3 g/dL 3.5-5.0 9255476088) ALK PHOS (test code = 102 U/L 34-122 6920431985) ALTv (test code = 32 U/L 5-35 1742-6) AST(SGOT) (test code = 54 U/L 13-40 H 2196600577) eGFR (test code = mL/min/1.73m2 5333631553) CHELSEA (test code = CHELSEA) Association of Glomerular Filtration Rate (GFR) and Staging of Kidney Disease* + --+ --+ ------+| GFR (mL/min/1.73 m2) ?| With Kidney Damage ?| ?Without Kidney Damage+ --------+ --------+ +| ?>90 ?| ?Stage one ?| ? Normal ?+ ---+ ---+ -------+| ?60-89 ?| ?Stage two ?| ? Decreased GFR ? + --+ --+ ------+| ?30-59 ?| ?Stage three ?| ? Stage three ? + --+ --+ ------+| ?15-29 ?| ?Stage four ? | ? Stage four ?+ ---+ ---+ -------+| ?<15 (or dialysis) ? ?| ?Stage five ? | ? Stage five ?+ ---+ ---+ -------+ *Each stage assumes the associated GFR level has been in effect for at least three months. ?Stages 1 to 5, with or without kidney disease, indicate chronic kidney disease. Notes: Determination of stages one and two (with eGFR >59mL/min/1.73 m2) requires estimation of kidney damage for at least three months as defined by structural or functional abnormalities of the kidney, manifested by either:Pathological abnormalities or Markers of kidney damage (including abnormalities in the composition of the blood or urine or abnormalities in imaging tests). Lab Interpretation Abnormal (test code = 97958-2) [facility] DallasMAGNESIUM2021-11-16 07:25:42 Test Item Value Reference Range Interpretation Comments MAGNESIUM (test code = 9440771312) 1.7 mg/dL 1.7-2.4 Lab Interpretation (test code = Normal 28274-0) [facility] DallasLIPASE2021-11-16 07:25:22 Test Item Value Reference Range Interpretation Comments LIPASE (test code = 0220826831) 57 U/L 0-220 Lab Interpretation (test code = Normal 48952-7) [facility] DallasCREATINE [id number] 07:25:22 Test Item Value Reference Range Interpretation Comments CK (test code = 8950309886) 140 U/L 33-194 Lab Interpretation (test code = Normal 78646-1) [facility] DallasACTIVATED PARTIAL THRMPLAS [id number] 07:15:24 Test Item Value Reference Range Interpretation Comments APTT Patient (test See_Comment [Automat ed code = 3173-2) message] The system which generated this result transmitted reference range : 23 - 38 Seconds . The reference range was not used to interpr et this result as normal/abnormal . CHELSEA (test code = CHELSEA) The [facility] patient population mean normal value for aPTT is 30 seconds. Lab Interpretation Normal (test code = 32615-2) [facility] DallasPROTHROMBIN TIME / [id number] 07:13:24 Test Item Value Reference Range Interpretation Comments PROTIME PATIENT (test See_Comment [Auto mated message] code = 5964-2) The system wh ich generated this result transmitted ref erence range: 12.0 - 1 4.7 Seconds. The re ference range was not u sed to interpret this result as normal/abnor mal. INR (test code = 6301-6) Nor mal INR <1.1; Warfarin Therap eutic range 2.0 to 3. 0 or 2.5 to 3.5, dep ending upon the indica tions. Lab Interpretation (test Normal code = 12249-0) [facility] DallasCB WITH [id number] 07:05:20 Test Item Value Reference Range Interpretation Comments WBC (test code = See_Comment [Automated 6690-2) message] The sy stem which generated this result transmitted reference range : 4.30 - 11.10 10*3/?L. The reference range was not used to interpret this result as normal/abnormal . RBC (test code = See_Comment [Automated 789-8) message] The sy stem which generated this result transmitted reference range : 3.93 - 5.25 10*6/?L. The reference range was not used to interpret this result as normal/abnormal . HGB (test code = 11.3 g/dL 11.6-15.0 L 718-7) HCT (test code = 37.0 % 35.7-45.2 4544-3) MCV (test code = 71.6 fL 80.6-95.5 L 787-2) MCH (test code = 21.9 pg 25.9-32.8 L 785-6) MCHC (test code = 30.5 g/dL 31.6-35.1 L 786-4) RDW-SD (test code = 47.4 fL 39.0-49.9 38733-9) RDW-CV (test code = 19.1 % 12.0-15.5 H 788-0) PLT (test code = See_Comment H [Automated 777-3) message] The sy stem which generated this result transmitted reference range : 166 - 358 10*3/ ?L. The reference r gabriela was not used to interpret this result as normal/abnormal . MPV (test code = 10.6 fL 9.5-12.9 61261-3) NRBC/100 WBC (test See_Comment [Automat ed code = 5880656289) message] The system which generated this result transmitted reference range : 0.0 - 10.0 /100 WBCs. The refer ence range was not u sed to interpret th is result as normal/abnormal . NRBC x10^3 (test code <0.01 See_Comment [Auto mated = 9769636180) message] The s ystem which generated this result transmitted reference range : 10*3/?L. The reference range was not used to interpret this result as normal/abnormal . GRAN MAT (NEUT) % 80.0 % (test code = 770-8) IMM GRAN % (test code 0.50 % = 0008317284) LYMPH % (test code = 12.3 % 736-9) MONO % (test code = 6.6 % 5905-5) EOS % (test code = 0.3 % 713-8) BASO % (test code = 0.3 % 706-2) GRAN MAT x10^3(ANC) 7.93 10*3/uL 1.88-7.09 H (test code = 4232547590) IMM GRAN x10^3 (test 0.05 10*3/uL 0.00-0.06 code = 6400519787) LYMPH x10^3 (test code 1.22 10*3/uL 1.32-3.29 L = 731-0) MONO x10^3 (test code 0.65 10*3/uL 0.33-0.92 = 742-7) EOS x10^3 (test code = 0.03 10*3/uL 0.03-0.39 711-2) BASO x10^3 (test code 0.03 10*3/uL 0.01-0.07 = 704-7) Lab Interpretation Abnormal (test code = 15350-5) [facility] DallasXR KNEE <3 VW [id number] 19:03:40 Mild tricompartmental right knee osteoarthrosis. Preliminary Report Dictated by Resident: Chitra Almanza MD., have reviewed this study and agree with the abovereport.XR KNEE <3 VW RIGHT HISTORY: 44 years-old female; crepitus to right knee with pain ambulating ? COMPARISON: None FINDINGS: Radiographs of the right knee demonstrate no acute fracture or dislocation.Trace jointeffusion is noted. Mild tricompartmental osteoarthrosis is demonstrated by marginalosteophytosis andsubchondral sclerosis. [facility], Radiant Results Inft User - 11/22/2019 2:04 PM CDTXR KNEE <3 VW RIGHTHISTORY: 44 years-old female; crepitus to right knee with pain ambulating COMPARISON: NoneFINDINGS: Radiographs of the right knee demonstrate no acute fracture or dislocation.Trace joint effusion is noted.Mild tricompartmental osteoarthrosis is demonstrated by marginalosteophytosis and subchondral sclerosis.IMPRESSIONMild tricompartmental right knee osteoarthrosis.Preliminary Report Dictated by Resident: Chitra Diaz MD., have reviewed this study and agree with the abovereport.[facility] DallasTROPONIN [id number] 18:42:00 Test Item Value Reference Range Interpretation Comments TROPONIN I (test 0.003 ng/mL See_Comment [Automated code = 4300507726) message] The system which generated this result transmitted reference range : <=0.034. The reference range was not used to interpret this result as normal/abnormal . CHELSEA (test code = Equal or Less than CHELSEA) 0.034 ng/ml---Normal ?Note: Cardiac troponin begins to rise 3-4 hours after the onset of ischemia. Repeat in 4-6 hours if the sample was drawn within 3-4 hours of the onset of the symptom and found normal. Between 0.035 and 0.120 ng/mL--- Borderline. Questionable myocardial injury or necrosis ? ?Note: Serial measurement may be necessary to confirm or exclude the diagnosis of myocardial injury or necrosis; Clinical correlation (symptoms, EKGs, imaging studies, and others) required; Repeat in 4-6 hours if clinically indicated. ? Equal or Higher than 0.121 ng/mL---Abnormal. Myocardial Injury or Necrosis Likely ? Biotin has been reported to cause a negative bias, interpret results relative to patient's use of biotin. ? Lab Interpretation Normal (test code = 64893-9) [facility] DallasCREATINE [id number] 18:31:00 Test Item Value Reference Range Interpretation Comments CK (test code = 4063110853) 187 U/L 33-194 Lab Interpretation (test code = Normal 20247-1) [facility] GLUCOSE (AUTOMATED)2019-04-25 17:57:00 Test Item Value Reference Range Interpretation Comments POCT GLU (test code = 4974683943) 106 mg/dL 70-110 Lab Interpretation (test code = Normal 52097-2) [facility] GLUCOSE (AUTOMATED)2019-04-25 13:40:00 Test Item Value Reference Range Interpretation Comments POCT GLU (test code = 8918018094) 102 mg/dL 70-110 Lab Interpretation (test code = Normal 22402-7) [facility] (NA, K, CL, CO2, GLUCOSE, BUN, CREATININE, CA)2019-04-25 11:20:00 Test Item Value Reference Range Interpretation Comments NA (test code = 141 mmol/L 135-145 9469461756) K (test code = 4.9 mmol/L 3.5-5 9276119841) CL (test code = 105 mmol/L 98-108 8817556043) CO2 TOTAL (test code = 31 mmol/L 23-31 5854470961) AGAP (test code = 2-16 7979468362) BUN (test code = 12 mg/dL 7-23 1579953926) GLUCOSE (test code = 88 mg/dL 70-110 0621750069) CREATININE (test code 0.68 mg/dL 0.5-1.04 = 7340526893) CALCIUM (test code = 9.3 mg/dL 8.6-10.6 0399723359) eGFR Calculation mL/min/1.73m2 (Non-) (test code = 3755425681) eGFR Calculation mL/min/1.73m2 () (test code = 5288906676) CHELSEA (test code = CHELSEA) Association of Glomerular Filtration Rate (GFR) and Staging of Kidney Disease* + -+ + ---+| GFR (mL/min/1.73 m2) ?| With Kidney Damage ?| ?Without Kidney Damage+ -------+ ------+ ---------+| ?>90 ?| ?Stage one ?| ? Normal ?+ --+ -+ ----+| ?60-89 ?| ?Stage two ?| ? Decreased GFR ? + -+ + ---+| ?30-59 ?| ?Stage three ?| ? Stage three ? + -+ + ---+| ?15-29 ?| ?Stage four ? | ? Stage four ?+ --+ -+ ----+| ?<15 (or dialysis) ? ?| ?Stage five ? | ? Stage five ?+ --+ -+ ----+ *Each stage assumes the associated GFR level has been in effect for at least three months. ?Stages 1 to 5, with or without kidney disease, indicate chronic kidney disease. Notes: Determination of stages one and two (with eGFR >59mL/min/1.73 m2) requires estimation of kidney damage for at least three months as defined by structural or functional abnormalities of the kidney, manifested by either:Pathological abnormalities or Markers of kidney damage (including abnormalities in the composition of the blood or urine or abnormalities in imaging tests). [facility] WITH [id number] 10:39:00 Test Item Value Reference Range Interpretation Comments WBC (test code = See_Comment [Automated 0777-2) message] The sy stem which generated this result transmitted reference range : 4.30 - 11.10 10*3/?L. The reference range was not used to interpret this result as normal/abnormal . RBC (test code = See_Comment [Automated 382-8) message] The sy stem which generated this result transmitted reference range : 3.93 - 5.25 10*6/?L. The reference range was not used to interpret this result as normal/abnormal . HGB (test code = 10.0 g/dL 11.6-15 L 718-7) HCT (test code = 33.1 % 35.7-45.2 L 4544-3) MCV (test code = 83.0 fL 80.6-95.5 787-2) MCH (test code = 25.1 pg 25.9-32.8 L 785-6) MCHC (test code = 30.2 g/dL 31.6-35.1 L 786-4) RDW-SD (test code = 58.1 fL 39-49.9 H 59511-3) RDW-CV (test code = 19.1 % 12-15.5 H 788-0) PLT (test code = See_Comment [Automated 777-3) message] The sy stem which generated this result transmitted reference range : 166 - 358 10*3/ ?L. The reference r gabriela was not used to interpret this result as normal/abnormal . MPV (test code = 11.0 fL 9.5-12.9 38229-3) NRBC/100 WBC (test See_Comment [Automat ed code = 1331654288) message] The system which generated this result transmitted reference range : 0.0 - 10.0 /100 WBCs. The refer ence range was not u sed to interpret th is result as normal/abnormal . NRBC x10^3 (test code <0.01 See_Comment [Auto mated = 9793088947) message] The s ystem which generated this result transmitted reference range : 10*3/?L. The reference range was not used to interpret this result as normal/abnormal . GRAN MAT (NEUT) % 58.4 % (test code = 770-8) IMM GRAN % (test code 0.30 % = 3657352720) LYMPH % (test code = 24.9 % 736-9) MONO % (test code = 14.0 % 5905-5) EOS % (test code = 2.0 % 713-8) BASO % (test code = 0.4 % 706-2) GRAN MAT x10^3(ANC) 5.32 10*3/uL 1.88-7.09 (test code = 9338139025) IMM GRAN x10^3 (test 0.03 10*3/uL 0-0.06 code = 5572078162) LYMPH x10^3 (test code 2.27 10*3/uL 1.32-3.29 = 731-0) MONO x10^3 (test code 1.28 10*3/uL 0.33-0.92 H = 742-7) EOS x10^3 (test code = 0.18 10*3/uL 0.03-0.39 711-2) BASO x10^3 (test code 0.04 10*3/uL 0.01-0.07 = 704-7) Lab Interpretation Abnormal (test code = 57788-6) [facility] GLUCOSE (AUTOMATED)2019-04-25 02:03:00 Test Item Value Reference Range Interpretation Comments POCT GLU (test code = 6329628173) 87 mg/dL 70-110 Lab Interpretation (test code = Normal 14090-2) [facility] GLUCOSE (AUTOMATED)2019-04-24 22:42:00 Test Item Value Reference Range Interpretation Comments POCT GLU (test code = 9197741454) 89 mg/dL 70-110 Lab Interpretation (test code = Normal 51381-2) [facility] DallasGlycosylated Hemoglobin (A1C)2019-04-24 19:38:00 Test Item Value Reference Interpretation Comments Range HGB A1C (test code = See_Comment [Autom ated 4548-4) message] The system which generated this result transmitted reference range : 4.0 - 6.0 % NGSP. The reference range was not used to interpret this result as normal/abnormal . CHELSEA (test code = %A1C (NGSP) CHELSEA) Interpretation (ADA)4.8-5.6 ? ? Normal or (Non-Diabetic Range)5.7-6.4 ? ? Increased Risk (Pre-Diabetic)>6.5 ?Diabetes Indicated Lab Interpretation Normal (test code = 08147-7) [facility] GLUCOSE (AUTOMATED)2019-04-24 17:32:00 Test Item Value Reference Range Interpretation Comments POCT GLU (test code = 8111252054) 126 mg/dL 70-110 H Lab Interpretation (test code = Abnormal 06658-5) [facility] HEAD WO [id number] 15:00:28 No acute intracranial abnormality. Preliminary Report Dictated by Resident: Ericka Su MD., have reviewed this study and agree with the abovereport.CT HEAD WO CONTRAST HISTORY: Altered mental status (AMS), unclear cause COMPARISON: None. TECHNIQUE: Axial CT of the headwas performed and reconstructed at 5 mmintervals. Coronal and sagittal reformatted images were generated. FINDINGS: The ventricles and cerebral sulci are normal in caliber and configuration.No hydrocephalus, midline shift or pathological extra-axial fluidcollection is present. The basal cisterns are unremarkable. There is no acute intracranial hemorrhage or significant mass effect. Noabnormal parenchymal attenuation abnormality. The julio-white matterdifferentiation is preserved. Right maxillary sinus pedunculated polyp noted. The mastoid air cells andparanasal air sinuses are otherwise clear. The calvarium and central skullbase are unremarkable. [facility], Radiant Results Inft 04/24/2019 9:01 AM CSTCT HEAD WO CONTRASTHISTORY: Altered mental status (AMS), unclear cause COMPARISON: None.TECHNIQUE: Axial CT of the head was performed and reconstructed at 5 mmintervals. Coronal and sagittal reformatted images were generated.FINDINGS:The ventricles and cerebral sulci are normal in caliber and configuration.No hydrocephalus, midline shift or pathological extra-axial fluidcollection is present. The basal cisterns are unremarkable.There is no acute intracranial hemorrhage or significant mass effect. Noabnormal parenchymal attenuation abnormality. The julio-white matterdifferentiation is preserved.Right maxillary sinus pedunculated polyp noted. The mastoid air cells andparanasal air sinuses are otherwise clear. The calvarium and central skullbase are unremarkable.IMPRESSIONNo acute intracranial abnormality.Preliminary Report Dictated by Resident: Ericka Chowdary MD., have reviewed this study and agree with the abovereport.[facility] DallasPOPR GLUCOSE (AUTOMATED)2019-04-24 13:55:00 Test Item Value Reference Range Interpretation Comments POCT GLU (test code = 2094633727) 104 mg/dL 70-110 Lab Interpretation (test code = Normal 09434-3) [facility] DallasPREGNANCY TEST, [id number] 09:25:00 Test Item Value Reference Range Interpretation Comments PREG URINE (test code Negative = 5622066849) CHELSEA (test code = CHELSEA) Less than 20 IU/L. ?If low titer or ectopic is suspected, resubmit specimen in 48-72 hours. [facility] [place]2020-02[facility]24 05:47:00 Test Item Value Reference Range Interpretation Comments APPEARANCE (test code = Clear Clear 4221385110) COLOR (test code = Straw Yellow A 4205806836) PH (test code = 4.8-8.0 3143560607) SP GRAVITY (test code = 1.003-1.030 7286128136) GLU U QUAL (test code = Normal Normal 9050385292) BLOOD (test code = Negative Negative 1126192198) KETONES (test code = Negative Negative 8033427498) PROTEIN (test code = Negative Negative 2887-8) UROBILIN (test code = Normal Normal 1666199688) BILIRUBIN (test code = Negative Negative 8497227083) NITRITE (test code = Negative Negative 1444813474) LEUK [place] (test code = Negative Negative 5303678594) RBC/HPF (test code = See_Comment H [Autom ated message] 9953974972) The system DEXMA generated this result transmitted ref erence range: 0 - 3 HP F. The reference range was not used to int erpret this result as normal/abnormal . WBC/HPF (test code = See_Comment [Autom ated message] 3027693890) The system DEXMA generated this result transmitted ref erence range: 0 - 5 HP F. The reference range was not used to int erpret this result as normal/abnormal . BACTERIA (test code = Few Negative A 4346833441) SQ EPITH (test code = HPF 3271310573) Lab Interpretation (test Abnormal code = 39953-2) [facility] [place] thorax with [id number] 05:41:25 Bilateral pulmonary infiltrates, distribution may be due to aspiration.There is also bronchial wallthickening and partially early opacificationin the lower lungs could be due to mucous plugging or aspiration. The stomach is very distended with the pyloric region decompressed and theduodenum decompressed, correlate to exclude gastric outlet obstruction. NGtube placement may be helpful at this time to decompress the stomach. Thereis also some reflux to retained fluid in the distal esophagus. Prominent stool in the colon. Small amount of free fluid in the pelvis is nonspecific but could bephysiologic or reactive. Small right ovarian cyst Normal appendix RL: [id number]: [id number] Examination: CT chest abdomen pelvis with contrast Ordering Physician: PIA CARY History: Chest pain or SOB, pleurisy or effusion suspected Comparison: ?None available Technique: Computed tomographic examination of the chest, abdomen andpelvis with nonionic intravenous contrast. Exam performed using ALARA dosereduction principles. Findings: CT CHEST: Images of the chest are submitted and MIP format and and lungwindows. Heart is normal in size. No pericardial effusion. No enlargedadenopathy evident. There is some refluxed or retained fluid in the mid todistal esophagus. There are infiltrates in the posterior right upper lobeand in both lower lobes, somewhat nodular in appearance. No pleuraleffusion. Central airways grossly patent. There is bronchial wall thickening and partially radiopaque opacificationin the lower lungs are. CT abdomen and pelvis: The liver, gallbladder, spleen, pancreas, adrenal glands and kidneysdemonstrate no acute finding. Thereis moderate stool in the colon. There are some diverticula in thecolon without imaging evidence of acute diverticulitis. The colon istortuous. Normal appendix. No evidence of small bowel obstruction. Thestomach is however quite distended with fluid to the level of the pyloricregion, with this region in the duodenum appearing decompressed. Trace free fluid in the posterior right pelvis. No free air. Portal and splenic veins are patent. No enlarged adenopathy. Uterus and left adnexa are unremarkable. Right ovarian cyst measures 2.2cm. Urinary bladder grossly unremarkable. Bone windows show no suspicious lytic or blastic bony lesion. [facility], Radiant Results Inft User - 04/23/2019 11:42 PM CSTExamination: CT chest abdomen pelvis with contrastOrdering Physician: RUFINO CARYHistory: Chest pain or SOB, pleurisy or effusion suspected Comparison: None availableTechnique: Computed tomographic examination of the chest, abdomen andpelvis with nonionic intravenous contrast. Exam performed using ALARA dosereduction principles.Findings:CT CHEST: Images of the chest are submitted and MIP format and and lungwindows. Heart is normal in size. No pericardial effusion. No enlargedadenopathy evident. There is some refluxed or retained fluid in the mid todistal esophagus. There are infiltrates in the posteriorright upper lobeand in both lower lobes, somewhat nodular in appearance. No pleuraleffusion. Centralairways grossly patent.There is bronchial wall thickening and partially radiopaque opacificationin the lower lungs are.CT abdomen and pelvis:The liver, gallbladder, spleen, pancreas, adrenal glands and kidneysdemonstrate no acute finding.There is moderate stool in the colon. There are some diverticulain thecolon without imaging evidence of acute diverticulitis. The colon istortuous. Normal appendix.No evidence of small bowel obstruction. Thestomach is however quite distended with fluid to the level of the pyloricregion, with this region in the duodenum appearing decompressed.Trace free fluid in the posterior right pelvis. No free air.Portal and splenic veins are patent. No enlarged adenopathy.Uterus and left adnexa are unremarkable. Right ovarian cyst measures 2.2cm. Urinary bladder grossly unremarkable.Bone windows show no suspicious lytic or blastic bony lesion.IMPRESSIONBilateral pulmonary infiltrates, distribution may be due to aspiration.There is also bronchial wall thickening and partially early opacificationin the lower lungs could be due to mucous plugging or aspiration.The stomach is very distended with the pyloric region decompressed and theduodenum decompressed, correlate to exclu de gastric outlet obstruction. NGtube placement may be helpful at this time to decompress the stomach. Thereis also some reflux to retained fluid in the distal esophagus.Prominent stool in the colon.Small amount of free fluid in the pelvis is nonspecific but could bephysiologic or reactive.Small rightovarian cystNormal appendixRL: [id number]: [id number] signed by Lopez House MD at 04/23/2019 11:41 PMUnHendrick Medical Center BrownwoodCT abdomen pelvis with contrast 2019-04-24 05:41:25 Bilateral pulmonary infiltrates, distribution may be due to aspiration.There is also bronchial wallthickening and partially early opacificationin the lower lungs could be due to mucous plugging or aspiration. The stomach is very distended with the pyloric region decompressed and theduodenum decompressed, correlate to exclude gastric outlet obstruction. NGtube placement may be helpful at this time to decompress the stomach. Thereis also some reflux to retained fluid in the distal esophagus. Prominent stool in the colon. Small amount of free fluid in the pelvis is nonspecific but could bephysiologic or reactive. Small right ovarian cyst Normal appendix RL: [id number]: [id number] Examination: CT chest abdomen pelvis with contrast Ordering Physician: PIA CARY History: Chest pain or SOB, pleurisy or effusion suspected Comparison: ?None available Technique: Computed tomographic examination of the chest, abdomen andpelvis with nonionicintravenous contrast. Exam performed using ALARA dosereduction principles. Findings: CT CHEST: Images of the chest are submitted and MIP format and and lungwindows. Heart is normal in size. No pericardial effusion. No enlargedadenopathy evident. There is some refluxed or retained fluid in the mid todistal esophagus. There are infiltrates in the posterior right upper lobeand in both lower lobes, somewhat nodular in appearance. No pleuraleffusion. Central airways grossly patent. There is bronchial wall thickening and partially radiopaque opacificationin the lower lungs are. CT abdomen and pelvis: The liver, gallbladder, spleen, pancreas, adrenal glands and kidneysdemonstrate no acute finding. Thereis moderate stool in the colon. There are some diverticula in thecolon without imaging evidence of acute diverticulitis. The colon istortuous. Normal appendix. No evidence of small bowel obstruction. Thestomach is however quite distended with fluid to the level of the pyloricregion, with this region in the duodenum appearing decompressed. Trace free fluid in the posterior right pelvis. No free air. Portal and splenic veins are patent. No enlarged adenopathy. Uterus and left adnexa are unremarkable. Right ovarian cyst measures 2.2cm. Urinary bladder grossly unremarkable. Bone windows show no suspicious lytic or blastic bony lesion. [facility], Radiant Results Inft User - 04/23/2019 11:42 PM CSTExamination: CT chest abdomen pelvis with contrastOrdering Physician: RUFINO CARYHistory: Chest pain or SOB, pleurisy or effusion suspected Comparison: None availableTechnique: Computed tomographic examination of the chest, abdomen andpelvis with nonionic intravenous contrast. Exam performed using ALARA dos ereduction principles.Findings:CT CHEST: Images of the chest are submitted and MIP format and and lungwindows. Heart is normal in size. No pericardial effusion. No enlargedadenopathy evident. There is some refluxed or retained fluid in the mid todistal esophagus. There are infiltrates in the posteriorright upper lobeand in both lower lobes, somewhat nodular in appearance. No pleuraleffusion. Centralairways grossly patent.There is bronchial wall thickening and partially radiopaque opacificationin the lower lungs are.CT abdomen and pelvis:The liver, gallbladder, spleen, pancreas, adrenal glands and kidneysdemonstrate no acute finding.There is moderate stool in the colon. There are some diverticulain thecolon without imaging evidence of acute diverticulitis. The colon istortuous. Normal appendix.No evidence of small bowel obstruction. Thestomach is however quite distended with fluid to the level of the pyloricregion, with this region in the duodenum appearing decompressed.Trace free fluid in the posterior right pelvis. No free air.Portal and splenic veins are patent. No enlarged adenopathy.Uterus and left adnexa are unremarkable. Right ovarian cyst measures 2.2cm. Urinary bladder grossly unremarkable.Bone windows show no suspicious lytic or blastic bony lesion.IMPRESSIONBilateral pulmonary infiltrates, distribution may be due to aspiration.There is also bronchial wall thickening and partially early opacificationin the lower lungs could be due to mucous plugging or aspiration.The stomach is very distended with the pyloric region decompressed and theduodenum decompressed, correlate to exclu de gastric outlet obstruction. NGtube placement may be helpful at this time to decompress the stomach. Thereis also some reflux to retained fluid in the distal esophagus.Prominent stool in the colon.Small amount of free fluid in the pelvis is nonspecific but could bephysiologic or reactive.Small rightovarian cystNormal appendixRL: [id number]: [id number] signed by Lopez House MD at 04/23/2019 11:41 PMUnHendrick Medical Center BrownwoodETHANOL2020-02-24 03:09:00 Test Item Value Reference Range Interpretation Comments ALCOHOL (test code = <10 mg/dL 2772831162) CHELSEA (test code = CHELSEA) <10 [id number] Toxic>100 Depression of PRIMARY CARE NURSE>400 Fatalities Reported [facility] DallasACETAMINOPHEN2020-02-24 03:09:00 Test Item Value Reference Range Interpretation Comments ACETAMINOP (test code = <10.0 10-30 L 1862456947) CHELSEA (test code = CHELSEA) Toxic: Greater than 200 ug/mL @ 4 hour post ingestion or greater than 50 ug/mL @ 12 hour post ingestion Lab Interpretation (test Abnormal code = 62845-4) [facility] [place]SALICYLATE2020-02-24 03:09:00 Test Item Value Reference Range Interpretation Comments SALICYLATE (test code <10 mg/L = 3461238089) CHELSEA (test code = CHELSEA) Therapeutic Range: ? Analgesic and Antipyretic Use ? 20-100 mg/L ? ? Anti-Inflammatory Use ? 100-250 mg/L Toxic Range: ? Greater than 300 mg/L [facility] DallasCOM. METABOLIC PANEL ([id number])2019-04-24 02:32:00 Test Item Value Reference Range Interpretation Comments NA (test code = 134 mmol/L 135-145 L 6745684831) K (test code = 5.1 mmol/L 3.5-5 H 8699127650) CL (test code = 96 mmol/L 98-108 L 9710339964) CO2 TOTAL (test code = 29 mmol/L 23-31 8376990431) AGAP (test code = 2-16 5534822571) BUN (test code = 9 mg/dL 7-23 0845108206) GLUCOSE (test code = 241 mg/dL 70-110 H 7206748713) CREATININE (test code = 1.01 mg/dL 0.5-1.04 2105915973) TOTAL BILI (test code = 0.4 mg/dL 0.1-1.6 8836556331) CALCIUM (test code = 9.0 mg/dL 8.6-10.6 4252032906) T PROTEIN (test code = 7.5 g/dL 6.3-8.2 6762798783) ALBUMIN (test code = 4.3 g/dL 3.5-5 4578502912) ALK PHOS (test code = 79 U/L 34-122 4330742271) ALTv (test code = 49 U/L 5-35 H 1742-6) AST(SGOT) (test code = 52 U/L 13-40 H 3700950310) eGFR Calculation mL/min/1.73m2 (Non-) (test code = 2646663962) eGFR Calculation mL/min/1.73m2 () (test code = 5372666698) CHELSEA (test code = CHELSEA) Association of Glomerular Filtration Rate (GFR) and Staging of Kidney Disease* + --+ --+ ------+| GFR (mL/min/1.73 m2) ?| With Kidney Damage ?| ?Without Kidney Damage+ --------+ --------+ +| ?>90 ?| ?Stage one ?| ? Normal ?+ ---+ ---+ -------+| ?60-89 ?| ?Stage two ?| ? Decreased GFR ? + --+ --+ ------+| ?30-59 ?| ?Stage three ?| ? Stage three ? + --+ --+ ------+| ?15-29 ?| ?Stage four ? | ? Stage four ?+ ---+ ---+ -------+| ?<15 (or dialysis) ? ?| ?Stage five ? | ? Stage five ?+ ---+ ---+ -------+ *Each stage assumes the associated GFR level has been in effect for at least three months. ?Stages 1 to 5, with or without kidney disease, indicate chronic kidney disease. Notes: Determination of stages one and two (with eGFR >59mL/min/1.73 m2) requires estimation of kidney damage for at least three months as defined by structural or functional abnormalities of the kidney, manifested by either:Pathological abnormalities or Markers of kidney damage (including abnormalities in the composition of the blood or urine or abnormalities in imaging tests). Lab Interpretation Abnormal (test code = 16427-3) [facility] - DRUG SCREEN [id number] 02:25:00 Test Item Value Reference Range Interpretation Comments BENZO U (test code = Negative Negative 1213179240) EDUARDO U (test code = Negative Negative 4065597879) AMPHET (test code = Negative Negative 3609538135) THC (test code = Negative Negative 0017995795) METHADONE (test code = Negative Negative 2570469765) Meth U (test code = Negative Negative 0920764689) OPIATES (test code = Presumptive Positive Negative A 7186055777) Cocaine Metabolite (test Negative Negative code = 2394368220) PROPOXY (test code = Negative Negative 5567049471) Tric U (test code = Negative Negative 1893835311) PCP (test code = Negative Negative 4354889872) OXYCOD (test code = Negative Negative 1959737614) CHELSEA (test code = CHELSEA) Urine Drug Cutoff Ranges Benzodiazepines: ? ? 150 ng/mLBarbiturates: ?200 ng/mLAmphetamine: ? 500 ng/mLCannabinoids: ?50 ?ng/mLMethadone: ? 200 ng/mLMethamphetamine: ? ? 500 ng/mL Opiates: ? 100 ng/mL or 2000 ng/mLCocaine: ? 150 ng/mLPropoxyphene: ?300 ng/mLTricyclics: ?300 ng/mLOxycodone: ? 100 ng/mLPCP: ? 25 ?ng/mL The results are to be used only for medical (i.e., treatment) purposes. Unconfirmed screening results must not be used for non-medical purposes (e.g., employment testing, legal testing). Lab Interpretation (test Abnormal code = 77010-5) [facility] WITH [id number] 02:22:00 Test Item Value Reference Range Interpretation Comments WBC (test code = See_Comment H [Automated 3256-2) message] The system which generated this result transmit bhargav reference range : 4.30 - 11.10 10*3/?L. The reference range was not used to interpret this result as normal/abnormal . RBC (test code = See_Comment [Automated 514-8) message] The system which generated this result transmit bhargav reference range : 3.93 - 5.25 10*6/?L. The reference range was not used to interpret this result as normal/abnormal . HGB (test code = 11.0 g/dL 11.6-15 L 718-7) HCT (test code = 35.1 % 35.7-45.2 L 4544-3) MCV (test code = 81.4 fL 80.6-95.5 787-2) MCH (test code = 25.5 pg 25.9-32.8 L 785-6) MCHC (test code = 31.3 g/dL 31.6-35.1 L 786-4) RDW-SD (test code = 55.4 fL 39-49.9 H 75986-9) RDW-CV (test code = 18.6 % 12-15.5 H 788-0) PLT (test code = See_Comment [Automated 777-3) message] The system which generated this result transmit bhargav reference range : 166 - 358 10*3/ ?L. The reference range was not u sed to interpret th is result as normal/abnormal . MPV (test code = 10.5 fL 9.5-12.9 12244-6) NRBC/100 WBC (test See_Comment [Automat ed code = 7634632517) message] The system which generated this result transmit bhargav reference range : 0.0 - 10.0 /100 WBCs. The reference range was not used to interpret this result as normal/abnormal . NRBC x10^3 (test code <0.01 See_Comment [Auto mated = 5027077223) message] The system which generated this result transmit bhargav reference range : 10*3/?L. The reference range was not used to interpret this result as normal/abnormal . GRAN MAT (NEUT) % 82.9 % (test code = 770-8) IMM GRAN % (test code 2.40 % = 8286327708) LYMPH % (test code = 9.4 % 736-9) MONO % (test code = 4.5 % 5905-5) EOS % (test code = 0.5 % 713-8) BASO % (test code = 0.3 % 706-2) GRAN MAT x10^3(ANC) 19.68 10*3/uL 1.88-7.09 H (test code = 3435175355) IMM GRAN x10^3 (test 0.56 10*3/uL 0-0.06 H code = 6178496130) LYMPH x10^3 (test code 2.22 10*3/uL 1.32-3.29 = 731-0) MONO x10^3 (test code 1.07 10*3/uL 0.33-0.92 H = 742-7) EOS x10^3 (test code = 0.13 10*3/uL 0.03-0.39 711-2) BASO x10^3 (test code 0.08 10*3/uL 0.01-0.07 H = 704-7) Lab Interpretation Abnormal (test code = 94056-7) [facility] [place]POCT [id number] 02:16:00 Test Item Value Reference Range Interpretation Comments POCT PREG (test code = 1605) negative On board controls acceptable with present C Line (test code = 3574) POCT PREG LOT # (test code = 3575) [id number] POCT PREG TEST DATE (test 09/28/2020 code = 3576) Lab Interpretation (test code = Normal 93208-4) [facility] DallasXR CHEST 1 [id number] 02:03:47No active pulmonary disease. RL: 5611 AFC: [id number] END OF REPORT Ordering Physician: RUFINO CARY Clinical Indication: Unresponsive Additional Clinical Information: Comparison: None Technique: Portable chest obtained at 2000 hours Findings:There is no infiltrate or effusion. The heart size andmediastinum are normal. [facility], Radiant Results I nft User - 04/23/2019 8:04 PM CSTOrdering Physician: RUFINO LOPEZlinical Indication: Unresponsive Additional Clinical Information:Comparison: NoneTechnique: Portable chest obtained at 2000 hoursFindings: There is no infiltrate or effusion. The heart size andmediastinum are normal.IMPRESSIONNo active pulmonary disease.RL: 5611AFC: [id number] OF REPORT UnHendrick [facility] Brownwood"
--- NOTE | 2021-02-15 15:32 | EDPHYS ---
Physician Documentation [facility] Name: Sarita Gutierrez Age: 46 yrs Sex: Female : 1975 Arrival Date: 02/15/2021 Time: 15:18 Bed Waiting Private MD: ED Physician Josef Hay HPI: 02/15 15:32 This 46 yrs old Female presents to ER via Ambulatory with complaints of Vomiting. pm1 15:32 The patient presents to the emergency department with vomiting. Onset: The pm1 symptoms/episode began/occurred just prior to arrival. Possible causes: pasta got stuck in her throat. The symptoms are aggravated by Pasta. Associated signs and symptoms: Pertinent negatives: abdominal pain, chest pain, shortness of breath. Severity of symptoms: in the emergency department the symptoms have resolved and did so while in waiting room. The patient has experienced similar episodes in the past, with the last episode occurring 1 month(s) ago, and the symptoms today are exactly the same. The patient has been recently seen by a physician: the patient's primary care provider, with different complaint(s), Has not had her heart burn and prior food bolus episodes evaluted. Historical: - Allergies: 15:27 Erythromycin; ss - PMHx: 15:27 Hepatitis C; Schizophrenia; ss - Immunization history:: Client reports receiving the 2nd dose of the Covid vaccine. - Social history:: Smoking status: Patient reports the use of cigarette tobacco products, smokes one pack cigarettes per day. ROS: 15:32 Constitutional: Negative for fever, chills, and weight loss, Cardiovascular: Negative pm1 for chest pain, palpitations, and edema, Respiratory: Negative for shortness of breath, cough, wheezing, and pleuritic chest pain. 15:32 Back: Negative for injury and pain, MS/Extremity: Negative for injury and deformity, Skin: Negative for injury, rash, and discoloration, Neuro: Negative for headache, weakness, numbness, tingling, and seizure. 15:32 ENT: Positive for foreign body sensation, in her throat. 15:32 Abdomen/GI: Positive for vomiting, Negative for abdominal pain, diarrhea. 15:32 All other systems are negative. Exam: 15:32 Constitutional: This is a well developed, well nourished patient who is awake, alert, pm1 and in no acute distress. Head/Face: Normocephalic, atraumatic. 15:32 Skin: Warm, dry with normal turgor. Normal color with no rashes, no lesions, and no evidence of cellulitis. MS/ Extremity: Pulses equal, no cyanosis. Neurovascular intact. Full, normal range of motion. 15:32 Eyes: Exam is negative for acute changes, Pupils: no acute changes, Extraocular movements: no acute changes, Sclera: no acute changes, icterus, is not appreciated. 15:32 ENT: Exam is negative for acute changes, Mouth: no acute changes, Lips: normal, moist, Oral mucosa: normal, pink and intact, moist. 15:32 Cardiovascular: Exam negative for acute changes, Rate: normal, Rhythm: regular, Pulses: no pulse deficits are appreciated, Heart sounds: normal, normal S1and S2. 15:32 Respiratory: Exam negative for acute changes, respiratory distress, shortness of breath, Breath sounds: are clear throughout. 15:32 Neuro: Exam negative for acute changes, Orientation: is normal, Mentation: is normal, Motor: moves all fours. Vital Signs: 15:26 Pulse 112; Resp 18; Temp 97.7(TE); Pulse Ox 100% ; Weight 90.72 kg; Height 5 ft. 4 in. ss (162.56 cm); Pain 0/10; 15:28 BP 148 / 91; ss 15:26 Body Mass Index 34.33 (90.72 kg, 162.56 cm) ss MDM: 15:30 Data reviewed: vital signs. Data interpreted: Pulse oximetry: on room air is 100 %. pm1 Interpretation: normal. Refusal of service: The patient/guardian displays adequate decision making capability and despite a detailed discussion of alternatives, benefits, risks, and consequences refuses: all lab tests, all X-rays, Patient feels that her food bolus has passed into the stomach and would like to go home now. 15:30 Counseling: I had a detailed discussion with the patient and/or guardian regarding: the pm1 historical points, exam findings, and any diagnostic results supporting the discharge/admit diagnosis, the need for outpatient follow up, a script reader, to return to the emergency department if symptoms worsen or persist or if there are any questions or concerns that arise at home. 15:32 Patient medically screened. pm1 Administered Medications: No medications were administered Disposition: 16:49 Co-signature as Attending Physician, Josef Hay MD I agree with the assessment and rn plan of care. Attestation: The patient's history, exam findings, diagnostics, and a summary of any interventions or procedures was reviewed in detail with Donaldo Caruso NP. Disposition Summary: 02/15/21 15:32 Discharge Ordered Location: Home pm1 Problem: new pm1 Symptoms: have improved pm1 Condition: Stable pm1 Diagnosis - Vomiting pm1 Followup: pm1 - With: Emergency Department - When: As needed - Reason: Worsening of condition Discharge Instructions: - Discharge Summary Sheet pm1 - Swallowed Foreign Body, Adult pm1 - Vomiting, Adult pm1 Forms: - Medication Reconciliation Form pm1 - Thank You Letter pm1 - Antibiotic Education pm1 - Prescription Opioid Use pm1 Signatures: Josef Hay MD MD rn [facility] RN RN Donaldo Jimenes, H[employer] TEACHER pm1
--- NOTE | 2021-02-15 15:32 | ER ---
Nurse's Notes [facility] Name: Sarita Gutierrez Age: 46 yrs Sex: Female : 1975 Arrival Date: 02/15/2021 Time: 15:18 Bed Waiting Private MD: Diagnosis: Vomiting Presentation: 02/15 15:26 Chief complaint: Patient states: Pt reports she had a food bolus stuck just prior to ss arrival and was vomiting when she tried to drink. Pt states, "I feel better now.". Coronavirus screen: Client denies travel out of the [place] in the last 14 days. Ebola Screen: Patient denies exposure to infectious person. Patient denies travel to an Ebola-affected area in the 21 days before illness onset. Initial Sepsis Screen: Does the patient meet any 2 criteria? No. Patient's initial sepsis screen is negative. Does the patient have a suspected source of infection? No. Patient's initial sepsis screen is negative. Risk Assessment: Do you want to hurt yourself or someone else? Patient reports no desire to harm self or others. Onset of symptoms was February 15, 2021. 15:26 Method Of Arrival: Ambulatory ss 15:26 Acuity: JOSE LUIS 4 ss Historical: - Allergies: 15:27 Erythromycin; ss - PMHx: 15:27 Hepatitis C; Schizophrenia; ss - Immunization history:: Client reports receiving the 2nd dose of the Covid vaccine. - Social history:: Smoking status: Patient reports the use of cigarette tobacco products, smokes one pack cigarettes per day. Screenin:28 Abuse screen: Denies threats or abuse. Denies injuries from another. Nutritional ss screening: No deficits noted. Tuberculosis screening: Never had TB. Fall Risk None identified. Assessment: 15:28 General: Appears in no apparent distress. comfortable, Behavior is calm, cooperative. ss Pain: Denies pain. Neuro: Level of Consciousness is awake, alert, obeys commands. Cardiovascular: Capillary refill < 3 seconds is brisk in bilateral fingers. Respiratory: Airway is patent Respiratory effort is even, unlabored, Respiratory pattern is regular, symmetrical, Breath sounds are clear bilaterally. GI: Abdomen is non-distended, Reports vomiting and unable to drink that began after food bolus became lodged. Pt states that she feels 100% better now and has been able to tolerate PO liquids Patient currently denies diarrhea. Derm: Skin is intact, is healthy with good turgor, Skin is dry, Skin is pink, warm \\T\\ dry. normal. Vital Signs: 15:26 Pulse 112; Resp 18; Temp 97.7(TE); Pulse Ox 100% ; Weight 90.72 kg; Height 5 ft. 4 in. ss (162.56 cm); Pain 0/10; 15:28 BP 148 / 91; ss 15:26 Body Mass Index 34.33 (90.72 kg, 162.56 cm) ED Course: 15:18 Patient arrived in ED. ds1 15:25 Donaldo Caruso NP is PHCP. pm1 15:25 Josef Hay MD is Attending Physician. pm1 15:27 Triage completed. ss 15:27 Arm band placed on right wrist. ss 15:28 Patient has correct armband on for positive identification. Bed in low position. ss 15:28 No provider procedures requiring assistance completed. Patient did not have IV access ss during this emergency room visit. 15:36 Justine Kilgore RN is Primary Nurse. ss Administered Medications: No medications were administered Outcome: 15:32 Discharge ordered by . pm1 15:36 Discharged to home ambulatory. ss 15:36 Condition: improved 15:36 Discharge instructions given to patient, Instructed on discharge instructions, follow up and referral plans. Demonstrated understanding of instructions, follow-up care. 15:36 Patient left the ED. Signatures: Mari Muñoz ds1 Justine Kilgore RN RN Donaldo Caruso NP FENCE MAKING MACHINE OPERATOR pm1
[2021-02-15 15:46] VITALS: TEMP 97.7; O2SAT 100
[2021-02-15 15:47] VITALS: BP 148/91
== END 2021-02-15 15:36 | disposition home or self-care (01) ==
LOC: ER 15:12
DX: R11.10 Vomiting, unspecified (principal); Z88.3 Allergy status to other anti-infective agents
CPT/HCPCS: 99281

== ENCOUNTER 2023-01-22 17:47 | Emergency (ER) | payer OTHER, SELFPAY ==
--- OUTSIDE RECORDS SUMMARY | 2023-01-22 17:51 | XMS REPORT | Continuity of Care Document ---
:1975 Author Organization [facility] t Address 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 00:00: Hospita 00 l Schizoaffe Schizoaffe Disease Active 0 M ethodi ctive ctive 09-30 disorder disorder 00:00: Hospit a 00 l 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 00:00: Hospita disorder disorder 00 l Allergies, Adverse Reactions, Alerts Allergy Allergy Status Severity Reaction(s) Onset Inactive Treating Comm ents Source Name Type Date Date Clinician Erythrom Propensi Active Rash 0 [facility] ty to 09-29 adverse 00:00: Hospita reaction 00 l s to drug Family History Family Member Diagnosis Comments Start Date Stop Date Source [facility] Social History Social Habit Start Date Stop Date Quantity Comments Source Gender identity [facility] History of tobacco [facility] History of Social 2018-10-21 2018-10-[address] function 00:00:00 00:00:00 Hospital Tobacco use and 2018-09-30 2018-09-30 Smokeless [facility] 00:00:00 00:00:00 tobacco non-user Hospital Alcohol intake 2018-09-30 2018-09-30 Current drinker [facility] 00:[facility]:00 [facility]:00 of alcohol Hospital (finding) Alcohol Comment 2018-09-30 2018-09-30 6 pack a day [facility] Hospital Cigarettes smoked 2018-09-30 2018-09-[address] current (pack per 00:00:00 00:00:00 Hospita l day) - Reported Sex Assigned At [birth year] [facility] 00:00:00 [facility]:00 [facility] Smoking Status Start Date Stop Date Source Smokes tobacco daily 2018-09-30 00:00:00 [facility] Medications Ordered Filled Start Stop Current Ordering Indication Dosage Frequency Signature Comments Components Source Medication Medication Date Date Medication? Clinician (SIG) Name Name pantopraz[place] [id number] 40mg QD Take 1 [facility] e 8-09 tablet (40 st (PROTONIX) 00:00: mg total) [facility] sp[facility] 40 MG EC 00 by mouth l tablet daily Indication s: gastroesop hageal reflux disease. pantoprazol Yes [id number] 40mg QD Take 1 [facility] 8-09 tablet (40 st (PROTONIX) 00:00: mg total) [facility] 40 MG EC 00 by mouth l tablet daily Indication s: gastroesop hageal reflux disease. pantoprazol Yes [id number] 40mg QD Take 1 [facility] 8-09 tablet (40 st (PROTONIX) 00:00: mg total) [facility] 40 MG EC 00 by mouth l tablet daily Indication s: gastroesop hageal reflux disease. lurasidone Yes [id number] 60mg QD Take 60 mg [facility] 60 mg 8-[address] tablet 00:00: daily [facility]ospita 00 Indication l s: Bipolar Depression . lurasidone Yes [id number] 60mg QD Take 60 mg [facility] 60 mg 8-[address] tablet 00:00: daily [facility]osp[facility] 00 Indication l s: Bipolar Depression . lurasidone Yes [id number] 60mg QD Take 60 mg [facility] 60 mg 8-[address] tablet 00:00: daily [facility]ospita 00 Indication l s: Bipolar Depression . Procedures This patient has no known procedures. Plan of Care Planned Activity Planned Date Details Comments Source Future Scheduled 2022-12-24 Screening for [facility] Test 02:43:31 malignant neoplasm of colon (procedure) [code = 637109243] Future Scheduled 2022-12-24 [facility]ening for [facility] Test 02:43:31 malignant neoplasm of colon (procedure) [code = 581806342] Future Scheduled 2022-12-24 [facility]ening for [facility] Test 02:43:31 malignant neoplasm of colon (procedure) [code = 302248121] Future Scheduled 2022-12-24 COVID-[address] [facility] Test 02:43:31 (#1) [code = COVID-19 VACCINE (#1)] Future Scheduled 2022-12-24 [facility] for [facility] Test 02:43:31 malignant neoplasm of cervix (procedure) [code = 285516496] Future Scheduled 2022-12-24 BREAST CANCER [facility] Test 02:43:31 SCREENING [code = BREAST CANCER SCREENING] Future Scheduled 2022-12-24 [facility] for [facility] Test 02:43:31 malignant neoplasm of colon (procedure) [code = 886903728] Future Scheduled 2022-12-24 [facility] for [facility] Test 02:43:31 malignant neoplasm of colon (procedure) [code = 145442556] Future Scheduled 2022-12-24 INFLUENZA VACCINE [facility] Test 02:43:31 (#1) [code = INFLUENZA VACCINE (#1)] Future Scheduled 2022-11-30 Screening for [facility] Test 14:26:31 malignant neoplasm of colon (procedure) [code = 005192354] Future Scheduled 2022-11-30 [facility]ening for [facility] Test 14:26:31 malignant neoplasm of colon (procedure) [code = 372346825] Future Scheduled 2022-11-30 [facility] for [facility] Test 14:26:31 malignant neoplasm of colon (procedure) [code = 464100572] Future Scheduled 2022-11-30 COVID-[address] [facility] Test 14:26:31 (#1) [code = COVID-19 VACCINE (#1)] Future Scheduled 2022-11-30 [facility] for [facility] Test 14:26:31 malignant neoplasm of cervix (procedure) [code = 809352103] Future Scheduled 2022-11-30 BREAST CANCER [facility] Test 14:26:31 SCREENING [code = BREAST CANCER SCREENING] Future Scheduled 2022-11-30 [facility]ening for [facility] Test 14:26:31 malignant neoplasm of colon (procedure) [code = 662732794] Future Scheduled 2022-11-30 [facility] for [facility] Test 14:26:31 malignant neoplasm of colon (procedure) [code = 474455273] Future Scheduled 2022-11-30 [facility]ACCINE [facility] Test 14:26:31 (#1) [code = INFLUENZA VACCINE (#1)] Future Scheduled 2022-10-01 Screening for [facility] Test 07:56:32 malignant neoplasm of colon (procedure) [code = 260396040] Future Scheduled 2022-10-01 Screening for [facility] Test 07:56:32 malignant neoplasm of colon (procedure) [code = 712895549] Future Scheduled 2022-10-01 [facility] for [facility] Test 07:56:32 malignant neoplasm of colon (procedure) [code = 996894456] Future Scheduled 2022-10-01 COVID-[address] [facility] Test 07:56:32 (#1) [code = COVID-19 VACCINE (#1)] Future Scheduled 2022-10-01 Screening for [facility] Test 07:56:32 malignant neoplasm of cervix (procedure) [code = 676848379] Future Scheduled 2022-10-01 BREAST CANCER [facility] Test 07:56:32 SCREENING [code = BREAST CANCER SCREENING] Future Scheduled 2022-10-01 [facility] for [facility] Test 07:56:32 malignant neoplasm of colon (procedure) [code = 823873746] Future Scheduled 2022-10-01 Scre[facility] for [facility] Test 07:56:32 malignant neoplasm of colon (procedure) [code = 465508917] Future Scheduled 2022-10-01 [facility]ACCINE [facility] Test 07:56:32 [code = INFLUENZA VACCINE] Encounters Start End Encounter Admission Attending Care Care Encounter Source Date/Time Date/Time Type Type Clinicians Facility Department ID 2022-11-30 2022-11-30 Outpatient [facility] [id number] Royce 14:26:27 14:26:27 1002 F Scott 2022-10-02 2022-10-02 Outpatient [facility] [id number] Royce 09:46:22 09:46:22 [id number] F Scott 2015-12-20 2015-12-20 [facility] [id number] 15:46:00 20:00:00 [id number] Test Description Test Time Test Comments Results Result Comments Source CT/NG, NAAT, URINE 2022-12-01 18:32:49 Test Item Value Reference Range Interpretation Comme nts CHLAMYDIA, NAAT, URINE (test POSITIVE NEGATIVE A Testing is performed with Lea code = 73162) BI 6800/880 0 systems usingreal-time polymerase chain reaction (PCR) method. GONORRHEA, NAAT, URINE (test NEGATIVE NEGATIVE Testing is performed with Relevant e-solution code = 52173) BI 6800/880 0 systems usingreal-time polymerase chain reaction (PCR) method. A negative result does not exclude low level infection, spec imensampling error, or collection e rror. VAGINAL PATHOGENS DNA [id number] 15:52:46 Test Item Value Reference Range Interpretation Comments NILDA SPECIES NEGATIVE NEGATIVE (test code = ) G. VAGINALIS POSITIVE NEGATIVE A (test code = ) T. VAGINALIS NEGATIVE NEGATIVE Note: The BD A ffirm VPIII (test code = Microbial Ident ification ) Testis a DNA pr obe test intended for us e in the detectionand id entification of Nilda spec ies, Gardnerellavagi nalis and Trichomonas vag inalis nucleic acid. HIV 1/2 4TH GEN, RFLX [id number] 05:03:20 Test Item Value Reference Range Interpretation Comments HIV 1/2 4TH GEN, RFLX CONF (test NON-REACTIVE NON-REACTIVE code = 3514) HEPATITIS PANEL, [id number] 05:03:20 Test Item Value Reference Range Interpretation Comments HEPATITIS A IgM (test NON-REACTIVE NON-REACTIVE code = 43005) HEPATITIS B CORE IgM NON-REACTIVE NON-REACTIVE (test code = 4644) HEPATITIS B SURF AG NON-REACTIVE NON-REACTIVE (test code = 2739) HEPATITIS C ANTIBODY REACTIVE NON-REACTIVE A (test code = 4675) INTERPRETATION (NOTE) Hepatitis A HEPATITIS A: (test serology shows no code = 2552) evidence of acu te hepatitis A. INTERPRETATION (NOTE) Hepatitis B HEPATITIS B: (test serology shows no code = 06674) evidence of ac chilkoot hepatitis B and no indication of exposure to hepatitis B vir us in the previous si xto eight months. INTERPRETATION (NOTE) Hepatitis C HEPATITIS C: (test serology is code = 37542) consistent wit h exposure to hepatitis Cviru s. The CDC recomme nds performing a supplemental confirmatory te ston initial positiv e hepatitis C ant ibody tests. HCV PCR quantitativecan be used to confirm these results o n a new sample (See MMWR, 2003;52 R R-3). UNLESS OTHERWIS E INDICATED, ALL TESTING PERFORM ED AT [facility], [facility]. [address] [place] [id number] JOCELIN VOGEL DIRECTOR: Edwrad CAGLE MILADYS NUMBER [id number] [place] [id number] RPR REFLEX TO T. PALLIDUM - [id number] 03:42:03 Test Item Value Reference Range Interpretation Comments RPR (test code = 80058) NON-REACTIVE NON-REACTIVE RPR TITER (test code = 3500) NOT INDIC. TITER NOT INDIC.
--- NOTE | 2023-01-22 18:01 | ER ---
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 Pt states that the pain has now resolved. Coronavirus screen: Vaccine status: Patient reports receiving the 2nd dose of the covid vaccine. Client denies travel out of the [place] in the last 14 days. Ebola Screen: Patient denies travel to an Ebola-affected area in the 21 days before illness onset. No symptoms or risks identified at this time. Initial Sepsis Screen: Does the patient meet any 2 criteria? No. Patient's initial sepsis screen is negative. Does the patient have a suspected source of infection? No. Patient's initial sepsis screen is negative. Risk Assessment: Do you want to hurt yourself or someone else? Patient reports no desire to harm self or others. Note Pt left in the middle of triage and states that she does not want to be seen. 17:53 Method Of Arrival: EMS: [facility] cm10 Vital Signs: 17:53 BP 164 / 115; Pulse 91; Resp 18; Temp 97.3(IR); Pulse Ox 100% ; Weight 81.65 kg; Pain cm10 0/10; 17:53 Pain Scale: Adult cm10 ED Course: 17:51 Patient arrived in ED. as 17:54 Sterling Franz DO is Attending Physician. ms3 Administered Medications: No medications were administered Outcome: 18:00 Patient left the ED. cm10 Signatures: Priti Day Marcus, DO DO ms3 Louise Day, RN RN cm10
[2023-01-22 19:10] VITALS: BP 164/115; TEMP 97.3; O2SAT 100
== END 2023-01-22 18:00 | disposition left against medical advice (07) ==
LOC: ER 17:47
DX: Z53.21 Procedure and treatment not carried out due to patient leaving prior to being seen by health care provider (principal)
CPT/HCPCS: 99282

== ENCOUNTER 2023-11-30 15:06 | Emergency (ER) | payer OTHER ==
[2023-11-30 17:43] LABS: Absolute Basophils 0.1 K/uL (0-0.5); Absolute Eosinophils 0.2 K/uL (0-0.5); Absolute Lymphocytes (CBC) 2.7 K/uL (0.7-4.9); Absolute Monocytes 0.9 K/uL (0.1-1.3); Absolute Neutrophil 8.2 K/uL (1.8-8.0); Basophils % 0.7 % (0-1.3); Eosinophils % 1.6 % (0-4.4); Hematocrit 38.5 % (36.0-45.0); Hemoglobin 13.2 g/dL (12.0-15.0); Lymphocytes % 22.4 % (15.3-44.8); MCH 30.3 pg (27.0-35.0); MCHC 34.2 g/dL (32.0-36.0); MCV 88.4 fL (80-100); MPV 8.7 fL (7.6-11.3); Monocytes % 7.4 % (3.3-12.3); Neutrophils % 67.9 % (41.7-73.7); Platelets 296 thou/uL (152-406); RBC Red Blood Cell Count 4.36 M/uL (3.86-4.86); Red Cell Distribution Width 13.5 % (12.1-15.2)
[2023-11-30 17:59] LABS: Specific Gravity 1.017 (1.005-1.030); Urine Bilirubin NEGATIVE (Negative); Urine Blood Negative (Negative); Urine Clarity Clear (Clear); Urine Color Light-Yellow (Yellow); Urine Glucose NEGATIVE (Negative); Urine Ketones NEGATIVE (Negative); Urine Microscopic Reflex YN NO UMIC; Urine Nitrite NEGATIVE (Negative); Urine Protein NEGATIVE (Negative); Urine Urobilinogen 1+ (Normal)
[2023-11-30 18:05] LABS: Anion Gap 6.7 mEq/L (5.0-15.0); Potassium 3.7 mEq/L (3.5-5.1)
[2023-11-30 18:18] LABS: Monoscreen NEG (NEG)
--- NOTE | 2023-11-30 19:42 | RAD REPORT ---
EXAM: Soft Tissue Neck W/Contr INDICATION: dysphagia TECHNIQUE: Helical CT examination of the neck with IV contrast. Sagittal and coronal reformations wer e generated. This exam was performed according to our departmental dose-optimization program, which includes automated exposure control, adjustment of the mA and/or kV according to patient size and/or use of iterative reconstruction technique. COMPARISON: Cervical spine CT 01/02/2014. FINDINGS: Mucosal spaces: Nasopharynx, oropharynx, oral cavity, larynx and hypopharynx are normal. No suspiciou s masses. Epiglottis is normal in configuration. True vocal cords cords are normally situated. Piriform sinuses are well-aerated. Lymph Nodes: Mildly prominent bilateral level 2A lymph nodes, not exceeding 9 mm in short axis, favor ing infectious/inflammatory etiology. Salivary Glands: Unremarkable. Thyroid Gland: Normal Included Intracranial Structures: Normal Included Orbits: Normal Paranasal Sinuses: Predominantly clear Tympanomastoid Cavities: Normal Vascular Structures: Normal Osseous Structures: Mild multilevel degenerative changes. Included Lung Apices: Normal IMPRESSION: Mildly prominent bilateral level 2A lymph nodes, as above, favoring infectious/inflammatory etiology. No suspicious mucosal masses or inflammatory changes seen in the neck.
--- NOTE | 2023-11-30 20:05 | ER ---
Nurse's Notes [facility] Name: Sarita Gutierrez Age: 48 yrs Sex: Female : 1975 Arrival Date: 11/30/2023 Time: 15:06 Bed 10 Private MD: Diagnosis: Enlarged lymph nodes, unspecified Presentation: 11/29 15:12 Coronavirus screen: Vaccine status: Patient reports receiving the 2nd dose of the covid tm6 vaccine. Ebola Screen: Patient negative for fever greater than or equal to 101.5 degrees Fahrenheit, and additional compatible Ebola Virus Disease symptoms Patient denies exposure to infectious person. Patient denies travel to an Ebola-affected area in the 21 days before illness onset. No symptoms or risks identified at this time. Initial Sepsis Screen: Does the patient meet any 2 criteria? No. Patient's initial sepsis screen is negative. Does the patient have a suspected source of infection? No. Patient's initial sepsis screen is negative. Risk Assessment: Do you want to hurt yourself or someone else? Patient reports no desire to harm self or others. Onset of symptoms was November 24, 2023. 15:12 Method Of Arrival: Ambulatory tm6 15:12 Acuity: JOSE LUIS 3 tm6 15:13 Chief complaint: Patient states: six days ago I was eating and my throat started to tm6 swell. It has been swollen ever since. It is hard to eat or drink, it feels like there is an obstruction. When I try to eat or drink, I can get a little down, but then I throw up. Triage Assessment: 15:14 General: Appears in no apparent distress. Behavior is calm, cooperative. Pain: tm6 Complains of pain in throat Pain currently is 3 out of 10 on a pain scale. EENT: Reports difficulty swallowing since 6 days ago pain in throat when swallowing since 6 days ago. Neuro: Level of Consciousness is awake, alert, obeys commands, Oriented to person, place, time, situation. Cardiovascular: Patient's skin is warm and dry. Respiratory: Airway is patent Respiratory effort is even, unlabored, Respiratory pattern is regular, symmetrical. GI: Reports nausea. GI: Reports vomiting, since six days ago. : No signs and/or symptoms were reported regarding the genitourinary system. Derm: No signs and/or symptoms reported regarding the dermatologic system. Musculoskeletal: No signs and/or symptoms reported regarding the musculoskeletal system. 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 - Infectious Disease History:: Denies. - Social history:: Smoking status: Patient reports the use of cigarette tobacco products, smokes one-half pack cigarettes per day, Patient/guardian denies using alcohol, street drugs, the patient reports quitting approximately 1 years ago. Screenin:35 [facility] ED Fall Risk Assessment (Adult) History of falling in the last 3 months, lg3 including since admission No falls in past 3 months (0 pts) Confusion or Disorientation No (0 pts) Intoxicated or Sedated No (0 pts) Impaired Gait No (0 pts) Mobility Assist Device Used No (0 pt) Altered Elimination No (0 pt) Score/Fall Risk Level 0 - 2 = Low Risk Oriented to surroundings, Maintained a safe environment, Educated pt \T\ family on fall prevention, incl call for assistance when getting out of bed, Assessed \T\ reinforced patient's understanding of fall precautions. Abuse screen: Denies threats or abuse. Denies injuries from another. Nutritional screening: No deficits noted. Tuberculosis screening: No symptoms or risk factors identified. Assessment: 18:43 Reassessment: Patient appears in no apparent distress at this time. Patient and/or jb4 family updated on plan of care and expected duration. Pain level reassessed. Patient is alert, oriented x 3, equal unlabored respirations, skin warm/dry/pink. 20:35 Reassessment: Patient appears in no apparent distress at this time. No changes from lg3 previously documented assessment. Patient and/or family updated on plan of care and expected duration. Pain level reassessed. Patient is alert, oriented x 3, equal unlabored respirations, skin warm/dry/pink. Respiratory: No deficits noted. Airway is patent Respiratory effort is even, unlabored, Respiratory pattern is regular, symmetrical, Breath sounds are clear bilaterally. Vital Signs: 15:11 Resp 18; Temp 97.3(TE); Weight 104.33 kg; Height 5 ft. 4 in. ; Pain 3/10; tm6 15:12 BP 141 / 87; Pulse 84; Pulse Ox 99% on R/A; MAP 100 mmHg; tm6 20:36 BP 135 / 88; Pulse 81; Resp 16 S; Temp 97.4(O); Pulse Ox 100% on R/A; lg3 15:11 Body Mass Index 39.48 (104.33 kg, 162.56 cm) tm6 15:11 Pain Scale: Adult tm6 ED Course: 15:08 Patient arrived in ED. mg5 15:13 Triage completed. tm6 15:14 Arm band placed on left wrist. tm6 15:18 Chester Hussein PA is PHCP. cp 15:18 Chester Madsen MD is Attending Physician. cp 17:31 BMP Sent. tm6 17:31 CBC with Diff Sent. tm6 17:31 [place] Screen Profile Sent. tm6 17:31 Strep Sent. tm6 17:31 Urinalysis w/ reflexes Sent. tm6 17:31 Test, Urine Sent. tm6 17:31 Inserted saline lock: 20 gauge in right antecubital area, using aseptic technique. tm6 Blood collected. Flushed with 10 mL NS. 18:39 CT Soft Tissue Neck W/contr In Process Unspecified. EDMS 20:04 Opal Miller MD is Referral Physician. cp 20:35 Patient has correct armband on for positive identification. lg3 20:35 Client placed on continuous cardiac and pulse oximetry monitoring. NIBP monitoring lg3 applied. Door closed. Noise minimized. Warm blanket given. Pillow given. 20:35 No provider procedures requiring assistance completed. IV discontinued, intact, lg3 bleeding controlled, No redness/swelling at site. Pressure dressing applied. Administered Medications: 20:33 Drug: Clindamycin PO 300 mg PO once Route: PO; lg3 20:34 Follow up: Response: No adverse reaction; Medication Administered at Departure lg3 Medication: 20:36 VIS not applicable for this client. lg3 Outcome: 20:05 Discharge ordered by . cp 20:35 Discharged to home ambulatory, lg3 20:35 Condition: stable 20:35 Discharge instructions given to patient, Instructed on discharge instructions, follow up and referral plans. medication usage, Demonstrated understanding of instructions, follow-up care, medications, Prescriptions given X 2, 20:36 Patient left the ED. lg3 Signatures: Dispatcher [employer] EDMS Chester Hussein PA PA cp Bryson, James RN RN jb4 Edna Waters RN RN lg3 Jennifer Coffey 5 Hiro Santos RN RN tm6
--- NOTE | 2023-11-30 20:06 | EDPHYS ---
Physician Documentation [facility] Name: Sarita Gutierrez Age: 48 yrs Sex: Female : 1975 Arrival Date: 11/30/2023 Time: 15:06 Bed 10 Private MD: Chester Andrew HPI: 11/29 15:30 This 48 yrs old Female presents to ER via Ambulatory with complaints of Sore Throat - cp Swelling. 15:30 The patient presents with dysphagia, of both solids and liquids, a foreign body cp sensation in the throat. The patient describes throat pain as scratchy. Onset: The symptoms/episode began/occurred 6 day(s) ago. Severity of symptoms: in the emergency department the symptoms are unchanged, despite home interventions. Associated signs and symptoms: Pertinent negatives chest pain, cough, fever, flu-like symptoms. Patient reports she was eating shrimp 6 days ago when she felt like food became lodged in throat. She believes she vomiting shrimp up, but continues to have throat pain, difficulty swallowing liquids and food. 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 - Infectious Disease History:: Denies. - Social history:: Smoking status: Patient reports the use of cigarette tobacco products, smokes one-half pack cigarettes per day, Patient/guardian denies using alcohol, street drugs, the patient reports quitting approximately 1 years ago. ROS: 15:35 Constitutional: Negative for body aches, chills, fever, cp 15:35 Eyes: Negative for injury, pain, redness, and discharge, cp 15:35 ENT: Positive for difficulty swallowing, sore throat, Negative for drainage from ear(s), ear pain, difficulty handling secretions, 15:35 Neck: Positive for pain at rest, tenderness, 15:35 Cardiovascular: Negative for chest pain, palpitations, 15:35 Respiratory: Negative for cough, shortness of breath, wheezing, 15:35 All other systems are negative, Exam: 15:40 Constitutional: The patient appears in no acute distress, alert, awake, non-toxic, well cp developed, well nourished, 15:40 Head/Face: Normocephalic, atraumatic. cp 15:40 Eyes: Periorbital structures: appear normal, Conjunctiva: normal, no exudate, no injection, Sclera: no appreciated abnormality, Lids and lashes: appear normal, bilaterally, 15:40 ENT: External ear(s): are unremarkable, Ear canal(s): are normal, clear, TM's: dullness, bilaterally, Nose: is normal, Mouth: Lips: moist, Oral mucosa: pink and intact, moist, abscess, is not appreciated, Posterior pharynx: Airway: no evidence of obstruction, patent, Tonsils: no enlargement, no erythema, no exudate, Uvula: midline, erythema, is not appreciated, 15:40 Neck: ROM/movement: limited range of motion, is not appreciated, Meningeal signs: are not present, nuchal rigidity, is not appreciated, 15:40 Chest/axilla: Inspection: normal, 15:40 Cardiovascular: Rate: normal, Rhythm: regular, 15:40 Respiratory: the patient does not display signs of respiratory distress, Respirations: normal, no use of accessory muscles, no retractions, labored breathing, is not present, Breath sounds: are clear throughout, no decreased breath sounds, no stridor, no wheezing, 15:40 Abdomen/GI: Inspection: abdomen appears normal, 15:40 Neuro: Orientation: to person, place \T\ time. Mentation: is normal, Vital Signs: 15:11 Resp 18; Temp 97.3(TE); Weight 104.33 kg; Height 5 ft. 4 in. ; Pain 3/10; tm6 15:12 BP 141 / 87; Pulse 84; Pulse Ox 99% on R/A; MAP 100 mmHg; tm6 20:36 BP 135 / 88; Pulse 81; Resp 16 S; Temp 97.4(O); Pulse Ox 100% on R/A; lg3 15:11 Body Mass Index 39.48 (104.33 kg, 162.56 cm) tm6 15:11 Pain Scale: Adult tm6 MDM: 15:18 Patient medically screened. cp 16:00 Differential diagnosis: epiglottitis, group A strep tonsillitis, myles's angina, cp pharyngitis, retropharyngeal abcess tonsillitis, upper respiratory infection, uvulitis. 20:05 Data reviewed: vital signs, nurses notes, lab test result(s), radiologic studies, CT cp scan, and as a result, I will discharge patient. 20:05 Counseling: I had a detailed discussion with the patient and/or guardian regarding the cp historical points, exam findings, and any diagnostic results supporting the discharge/admit diagnosis, lab results, radiology results, the need for outpatient follow up, an ENT specialist, to return to the emergency department if symptoms worsen or persist or if there are any questions or concerns that arise at home. ED course: VSS. Patient observed tolerating po fluids and meds. Will discharge to home for continued monitoring. 11/29 15:25 Order name: CBC with Diff; Complete Time: 17:59 cp 11/29 17:59 Interpretation: Normal except: WBC 12.10; NEUT A 8.2. cp 11/29 15:25 Order name: BMP; Complete Time: 18:41 cp 11/29 15:25 Order name: Hart Screen Profile; Complete Time: 18:41 cp 11/29 15:25 Order name: Strep; Complete Time: 18:41 cp 11/29 15:25 Order name: Urinalysis w/ reflexes; Complete Time: 18:41 cp 11/29 15:25 Order name: Test, Urine; Complete Time: 18:41 cp 11/29 18:21 Order name: Throat Culture EDMS 11/29 15:25 Order name: CT Soft Tissue Neck W/contr; Complete Time: 19:44 cp 11/29 15:25 Order name: IV; Complete Time: 17:31 cp 11/29 19:45 Order name: PO challenge; Complete Time: 20:33 cp Administered Medications: 20:33 Drug: Clindamycin PO 300 mg PO once Route: PO; lg3 20:34 Follow up: Response: No adverse reaction; Medication Administered at Departure lg3 Disposition Summary: 11/30/23 20:05 Discharge Ordered Notes: Location: Home cp Problem: new cp Symptoms: have improved cp Condition: Stable cp Diagnosis - Enlarged lymph nodes, unspecified cp Followup: cp - With: Opal Miller MD - When: 2 - 3 days - Reason: Worsening of condition Discharge Instructions: - Discharge Summary Sheet cp - Sore Throat cp - Lymphadenopathy cp Forms: - Medication Reconciliation Form cp - Antibiotic Education cp - Prescription Opioid Use cp - Patient Portal Instructions cp - Leadership Thank You Letter cp Prescriptions: - Lidocaine Viscous - take 5 milliliter ORAL route every 4-6 hours; 120 milliliter; Refills: 0, cp Product Selection Permitted - Clindamycin HCl 300 mg Oral Capsule - take 1 capsule ORAL route every 6 hours for 10 days; 40 capsule; Refills: 0, cp Product Selection Permitted Signatures: Dispatcher [employer] EDMS Chester Hussein PA PA cp Able, Lacie RN RN lg3 Hiro Santos RN RN tm6 Corrections: (The following items were deleted from the chart) 15:25 15:25 CBC+H.LAB.BRZ ordered. EDMS EDMS 15:25 15:25 BASIC METABOLIC PANEL+C.LAB.BRZ ordered. EDMS EDMS 15:25 15:25 MONO SCREEN PROFILE+I.LAB.BRZ ordered. EDMS EDMS 15:25 15:25 Group A Streptococcus Rapid Sc+BA.LAB.BRZ ordered. EDMS EDMS
[2023-11-30 23:32] VITALS: BP 135/88; TEMP 97.4; O2SAT 100
== END 2023-11-30 20:36 | disposition home or self-care (01) ==
LOC: ER 15:06
DX: R59.9 Enlarged lymph nodes, unspecified (principal); F17.210 Nicotine dependence, cigarettes, uncomplicated
CPT/HCPCS: 87070; 85025; 80048; 36415; 86308; 81025; 87081; 81003; 70491; 99284; Q9967

== ENCOUNTER 2023-12-11 12:20 | Emergency (ER) | payer OTHER ==
[2023-12-11] MEDS ORDERED: NA CHLORIDE 0.9% 1,000 ML ONE (12:57)
[2023-12-11] MEDS ORDERED: FAMOTIDINE 20 MG/2 ML VIAL IV ONE (12:57)
[2023-12-11] MEDS ORDERED: ONDANSETRON 4 MG/2 ML VIAL ONE (12:57)
[2023-12-11] MEDS ORDERED: dexAMETHasone 10 MG/ML VIAL ONE (12:57)
[2023-12-11 13:34] LABS: Absolute Basophils 0.1 K/uL (0-0.5); Absolute Eosinophils 0.2 K/uL (0-0.5); Absolute Lymphocytes (CBC) 2.5 K/uL (0.7-4.9); Absolute Monocytes 0.7 K/uL (0.1-1.3); Absolute Neutrophil 6.2 K/uL (1.8-8.0); Basophils % 0.9 % (0-1.3); Hematocrit 38.5 % (36.0-45.0); Hemoglobin 13.1 g/dL (12.0-15.0); Lymphocytes % 25.8 % (15.3-44.8); MCH 29.9 pg (27.0-35.0); MPV 9.3 fL (7.6-11.3); Neutrophils % 64.3 % (41.7-73.7); Nucleated Red Blood Cells % 0.3 % (0-0); Platelets 291 thou/uL (152-406); RBC Red Blood Cell Count 4.38 M/uL (3.86-4.86); Red Cell Distribution Width 13.7 % (12.1-15.2)
--- NOTE | 2023-12-11 13:56 | RAD REPORT ---
EXAM:Neck Soft Tissue HISTORY: SWELLING COMPARISON: None IMPRESSION: Prevertebral soft tissues are normal. Epiglottis and aryepiglottic folds appear normal. M oderate lower cervical spondylosis. No radiographic foreign body seen.
[2023-12-11 14:40] LABS: Albumin 3.1 g/dL (3.4-5.0); Albumin/Globulin Ratio 0.8 (1.1-1.8); Anion Gap 6.9 mEq/L (5.0-15.0); Bilirubin Total 0.6 mg/dL (0.2-1.0); Globulin 3.9 g/dL (2.3-3.5)
[2023-12-11 14:42] LABS: Potassium 3.9 mEq/L (3.5-5.1)
--- NOTE | 2023-12-11 15:34 | EDPHYS ---
Physician Documentation [facility] Name: Sarita Gutierrez Age: 48 yrs Sex: Female : 1975 Arrival Date: 12/11/2023 Time: 12:20 Bed 19 Private MD: ED Physician Nolan Perez HPI: 12/10 15:38 This 48 yrs old Female presents to ER via Ambulatory with complaints of Difficulty kb Swallowing. 15:38 Pt is a 48 year old female who presents for difficulty swallowing that has been ongoing kb for a couple of weeks. States she has also been vomiting today so that is what made her come in. Denies fever . 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 - Infectious Disease History:: Denies. - Social history:: Smoking status: unknown. ROS: 15:36 Constitutional: As per HPI kb Exam: 15:36 Constitutional: This is a well developed, well nourished patient who is awake, alert, kb and in no acute distress. Head/Face: Normocephalic, atraumatic. ENT: Moist Mucous membranes Cardiovascular: Regular rate Respiratory: Respirations even and unlabored. No increased work of breathing. Talking in full sentences Abdomen/GI: Soft, non-tender. No distention Skin: Warm, dry with normal turgor. Normal color. MS/ Extremity: Pulses equal, no cyanosis. Neurovascular intact. Full, normal range of motion. Neuro: Awake and alert, GCS 15, oriented to person, place, time, and situation. Moves all extremities. Normal gait. Vital Signs: 12:25 BP 159 / 106; Pulse 92; Resp 20 S; Temp 97.5(TE); Pulse Ox 98% on R/A; Weight 105.69 kg aa5 (R); Height 5 ft. 4 in. (R); 14:55 BP 138 / 87; Pulse 84; Resp 18; Pulse Ox 98% ; ph 15:40 BP 115 / 65; Pulse 66; Resp 17; Pulse Ox 98% ; ph 12:25 Body Mass Index 39.99 (105.69 kg, 162.56 cm) aa5 MDM: 12:22 Patient medically screened. kb 15:37 Differential diagnosis: peritonsillar abscess pharyngitis, tonsillitis, FB, stricture. kb Data reviewed: vital signs, nurses notes. Test considered but Not performed: CT: ct soft tissue neck considered but was completed last week and symptoms have not increased. Pt has appt with Dr Miller on Wednesday for further evaluation. Historians other than the Patient: Parent: mother. Counseling: I had a detailed discussion with the patient and/or guardian regarding the historical points, exam findings, and any diagnostic results supporting the discharge/admit diagnosis, lab results, radiology results, the need for outpatient follow up, a family practitioner, to return to the emergency department if symptoms worsen or persist or if there are any questions or concerns that arise at home. 12/10 12:28 Order name: CBC with Diff; Complete Time: 13:39 kb 12/10 12:28 Order name: CMP; Complete Time: 14:47 kb 12/10 12:28 Order name: Lipase; Complete Time: 14:47 kb 12/10 12:40 Order name: XRAY Neck Soft Tissue; Complete Time: 14:03 kb 12/10 12:28 Order name: IV Saline Lock; Complete Time: 13:35 kb 12/10 12:28 Order name: Labs collected and sent; Complete Time: 13:35 kb 12/10 13:36 Order name: Labs - recollect needed: recollect green top per lab/ hemolyzed; Complete eb Time: 14:39 Administered Medications: 13:35 Drug: Famotidine IVP 20 mg IVP once; dilute with 10 mL 0.9% NaCl; give over 2 minutes ph Route: IVP; Site: right antecubital; 15:41 Follow up: Response: No adverse reaction ph 13:35 Drug: Ondansetron IVP 4 mg IVP once; over 2 minutes Route: IVP; Site: right antecubital;ph 15:41 Follow up: Response: No adverse reaction; Nausea is decreased ph 13:35 Drug: NS 0.9% IV 1000 ml IV at 1 bolus Per protocol; to be given as a bolus over 60 ph minutes Route: IV; Rate: 1 bolus; Site: right antecubital; 15:41 Follow up: Response: No adverse reaction; IV Status: Completed infusion; IV Intake: ph 700ml 13:35 Drug: Decadron - Dexamethasone IVP 10 mg IVP once Route: IVP; Site: right antecubital; ph 15:41 Follow up: Response: No adverse reaction ph Disposition Summary: 12/11/23 15:33 Discharge Ordered Notes: Location: Home kb Condition: Stable kb Diagnosis - Dysphagia kb Followup: kb - With: Emergency Department - When: As needed - Reason: Worsening of condition Followup: kb - With: Private Physician - When: 2 - 3 days - Reason: Recheck today's complaints, Continuance of care, Re-evaluation by your physician Discharge Instructions: - Discharge Summary Sheet kb - Dysphagia kb Forms: - Work release form kb - Medication Reconciliation Form kb - Antibiotic Education kb - Prescription Opioid Use kb - Patient Portal Instructions kb - Leadership Thank You Letter kb Prescriptions: - Zofran 4 mg Oral tablet - take 1 tablet ORAL route every 6 months As needed; 12 tablet; Refills: 0, kb Product Selection Permitted Addendum: 12/13/2023 09:21 I was immediately available for consultation during this patient's visit. I did not e c2 personally see the patient or discuss the patient with the MICHAEL. . Signatures: Dispatcher [employer] EDMarian Colbert, CONSTRUCTION SITE CROSSING GUARD-C CONSTRUCTION SITE CROSSING GUARD-Cherrie Robb, RN RN aa5 Sammi Gonzalez RN RN Melani Vasquez Edwin, MD MD ec2 Corrections: (The following items were deleted from the chart) 12/10 12:28 12:28 CBC+H.LAB.BRZ ordered. EDMS EDMS 12:28 12:28 COMPREHENSIVE METABOLIC PANEL+C.LAB.BRZ ordered. EDMS EDMS 12:28 12:28 LIPASE+C.LAB.BRZ ordered. EDMS EDMS 12:40 12:40 Neck Soft Tissue+RAD.RAD.BRZ ordered. EDMS EDMS
--- NOTE | 2023-12-11 15:34 | ER ---
Nurse's Notes [facility] Name: Sarita Gutierrez Age: 48 yrs Sex: Female : 1975 Arrival Date: 12/11/2023 Time: 12:20 Bed 19 Private MD: Diagnosis: Dysphagia Presentation: 12/10 12:25 Chief complaint: Patient states: trouble swallowing x 3 weeks ago, pt states "it feels aa5 like there is something stuck in my throat", reports being seen here approximately 1 week ago. Coronavirus screen: At this time, the client does not indicate any symptoms associated with coronavirus-19. Ebola Screen: Patient denies travel to an Ebola-affected area in the 21 days before illness onset. Initial Sepsis Screen: Does the patient meet any 2 criteria? HR > 90 bpm. Initial Sepsis Screen: Does the patient have a suspected source of infection? No. Patient's initial sepsis screen is negative. Risk Assessment: Do you want to hurt yourself or someone else? Patient reports no desire to harm self or others. Onset of symptoms was October 2023. 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 - Infectious Disease History:: Denies. - Social history:: Smoking status: unknown. Screenin:36 [facility] ED Fall Risk Assessment (Adult) History of falling in the last 3 months, ph including since admission No falls in past 3 months (0 pts) Confusion or Disorientation No (0 pts) Intoxicated or Sedated No (0 pts) Impaired Gait No (0 pts) Mobility Assist Device Used No (0 pt) Altered Elimination No (0 pt) Score/Fall Risk Level 0 - 2 = Low Risk Oriented to surroundings, Maintained a safe environment, Hourly rounding (assess needs \\T\\ fall precautionary measures) done. Abuse screen: Denies threats or abuse. Denies injuries from another. Nutritional screening: No deficits noted. Tuberculosis screening: No symptoms or risk factors identified. Assessment: 13:35 General: Appears in no apparent distress. Behavior is calm, cooperative. Pain: Denies ph pain. Neuro: Level of Consciousness is awake, alert, obeys commands, Oriented to person, place, time, situation. Cardiovascular: Capillary refill < 3 seconds in bilateral fingers Patient's skin is warm and dry. Respiratory: Airway is patent Respiratory effort is even, unlabored. GI: Reports vomiting. EENT: Reports difficulty swallowing. Derm: Skin is pink, warm \\T\\ dry. 14:54 Reassessment: Patient appears in no apparent distress at this time. Patient and/or ph family updated on plan of care and expected duration. Pain level reassessed. Patient is alert, oriented x 3, equal unlabored respirations, skin warm/dry/pink. Pt requested ice chips, tolerating well. 15:41 Reassessment: No changes from previously documented assessment. Patient and/or family ph updated on plan of care and expected duration. Pain level reassessed. Patient is alert, oriented x 3, equal unlabored respirations, skin warm/dry/pink. Vital Signs: 12:25 BP 159 / 106; Pulse 92; Resp 20 S; Temp 97.5(TE); Pulse Ox 98% on R/A; Weight 105.69 kg aa5 (R); Height 5 ft. 4 in. (R); 14:55 BP 138 / 87; Pulse 84; Resp 18; Pulse Ox 98% ; ph 15:40 BP 115 / 65; Pulse 66; Resp 17; Pulse Ox 98% ; ph 12:25 Body Mass Index 39.99 (105.69 kg, 162.56 cm) aa5 ED Course: 12:22 Patient arrived in ED. ra3 12:22 [facility] kb 12:22 Nolan Perez MD is Attending Physician. kb 12:25 Arm band placed on. aa5 12:26 Triage completed. aa5 12:46 Sammi Gonzalez RN is Primary Nurse. ph 13:05 Initial lab(s) drawn, by ri, sent to lab. Inserted saline lock: 20 gauge in right ph antecubital area, using aseptic technique. Blood collected. Flushed with 10 mL NS. 13:36 Patient has correct armband on for positive identification. Bed in low position. Call light in reach. Side rails up X 1. Pulse ox on. NIBP on. Door closed. Noise minimized. Warm blanket given. Pillow given. 13:37 No provider procedures requiring assistance completed. ph 13:43 XRAY Neck Soft Tissue In Process Unspecified. EDMS 15:41 IV discontinued, intact, bleeding controlled, No redness/swelling at site. Pressure ph dressing applied. 15:42 Provided Education on: return to ED for worsening symptoms. ph Administered Medications: 13:35 Drug: Famotidine IVP 20 mg IVP once; dilute with 10 mL 0.9% NaCl; give over 2 minutes ph Route: IVP; Site: right antecubital; 15:41 Follow up: Response: No adverse reaction ph 13:35 Drug: Ondansetron IVP 4 mg IVP once; over 2 minutes Route: IVP; Site: right antecubital;ph 15:41 Follow up: Response: No adverse reaction; Nausea is decreased ph 13:35 Drug: NS 0.9% IV 1000 ml IV at 1 bolus Per protocol; to be given as a bolus over 60 ph minutes Route: IV; Rate: 1 bolus; Site: right antecubital; 15:41 Follow up: Response: No adverse reaction; IV Status: Completed infusion; IV Intake: ph 700ml 13:35 Drug: Decadron - Dexamethasone IVP 10 mg IVP once Route: IVP; Site: right antecubital; ph 15:41 Follow up: Response: No adverse reaction ph Medication: 13:37 VIS not applicable for this client. ph Intake: 15:41 IV: 700ml; Total: 700ml. ph Outcome: 15:33 Discharge ordered by MD. moura 15:42 Discharged to home ambulatory, ph 15:42 Condition: stable 15:42 Discharge instructions given to patient, Instructed on discharge instructions, follow up and referral plans. medication usage, Demonstrated understanding of instructions, follow-up care, medications, Prescriptions given X 1, 15:43 Patient left the ED. ph Signatures: Dispatcher [employer] EDMS Marian Johnston, WILMAN PICHARDO-Cherrie Robb, RN RN aa5 Sammi Gonzalez RN RN ph Chloe Kramer RN RN ll1 Delisa Espinoza ra3 Corrections: (The following items were deleted from the chart) 12:27 12:25 BP 159 / 106; Pulse 92bpm; Resp 20bpm; Spontaneous; Pulse Ox 98% RA; Temp 97.5F aa5 Temporal; aa5
[2023-12-11 18:29] VITALS: TEMP 97.5; O2SAT 98
[2023-12-11 18:32] VITALS: BP 115/65
== END 2023-12-11 15:43 | disposition home or self-care (01) ==
LOC: ER 12:20
DX: R13.10 Dysphagia, unspecified (principal)
CPT/HCPCS: 85025; 36415; 83690; 80053; 70360; J1100; J2405; J7030

== ENCOUNTER 2024-12-02 19:04 | Observation (INO) | payer OTHER, SELFPAY ==
[2024-12-02] MEDS ORDERED: METOCLOPRAMIDE 10 MG/2mL INJ ONE (19:32)
[2024-12-02] MEDS ORDERED: ONDANSETRON 4 MG/2 ML VIAL ONE (19:32)
[2024-12-02] MEDS ORDERED: KETOROLAC 30 MG/ML INJ ONE (19:32)
[2024-12-02] MEDS ORDERED: MORPHINE 4 MG/ML SYR ONE (19:32)
[2024-12-02] MEDS ORDERED: FAMOTIDINE 20 MG/2 ML VIAL IV ONE (19:33)
[2024-12-02] MEDS ORDERED: NA CHLORIDE 0.9% 1,000 ML ONE (19:33)
[2024-12-02 19:35] LABS: Absolute Lymphocytes (CBC) 2.4 K/uL (0.7-4.9); Hematocrit 43.7 % (36.0-45.0); Hemoglobin 15.5 g/dL (12.0-15.0); MCH 31.3 pg (27.0-35.0); MCHC 35.4 g/dL (32.0-36.0); MCV 88.4 fL (80-100); MPV 9.3 fL (7.6-11.3); Nucleated RBC Absolute Count 0.0 (0-0); Nucleated Red Blood Cells % 0.1 % (0-0); RBC Red Blood Cell Count 4.94 M/uL (3.86-4.86); White Blood Count 9.40 thou/uL (4.3-10.9)
[2024-12-02] MEDS ORDERED: NA CHLORIDE 0.9% 100 ML ONE (19:35)
[2024-12-02 19:58] LABS: ALT/SGPT 37 U/L (13-56); AST/SGOT 37 U/L (15-37); Albumin 3.4 g/dL (3.4-5.0); Albumin/Globulin Ratio 0.7 (1.1-1.8); Alkaline Phosphatase 95 U/L (45-117); Anion Gap 6.3 mEq/L (5.0-15.0); BUN Blood Urea Nitrogen 5 mg/dL (7-18); Globulin 4.6 g/dL (2.3-3.5); Glucose Level 86 mg/dL (74-106); Lipase 25 U/L (13-75); Potassium 3.3 mEq/L (3.5-5.1)
[2024-12-02 20:04] LABS: C-Reactive Protein < 2.90 mg/L (<3.00)
[2024-12-02] MEDS ORDERED: DIAZEPAM 10 MG/2 ML INJ SYRINGE ONE (20:47)
[2024-12-02] MEDS ORDERED: GLUCAGON 1 MG/VIAL ONE (20:49)
[2024-12-02 23:42] LABS: Sqamous Epithelial <5 /HPF (None Seen); Urine Culture Reflex Order NOT NEEDED; Urine Microscopic Reflex YN ORDER UMIC
--- NOTE | 2024-12-02 23:43 | EDPHYS ---
Physician Documentation [facility] Name: Sarita Gutierrez Age: 49 yrs Sex: Female : 1975 Arrival Date: 12/02/2024 Time: 19:04 Bed IW10 Private MD: ED Physician Geoffrey Laboy HPI: 12/02 19:43 This 49 yrs old Female presents to ER via EMS with complaints of abdominal sp4 pain . 12/04 01:32 49-year-old female presents with abdominal pain. Report difficulty swallowing, sp4 hepatitis C, schizophrenia and drug abuse.. 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 - Infectious Disease History:: Denies. - Social history:: Smoking status: Patient reports the use of cigarette tobacco products, smokes one pack cigarettes per day. - Family history:: not pertinent. ROS: 12/04 01:32 Constitutional: Negative for fever, chills, and weight loss, positive abdominal pain sp4 positive difficulty swallowing All other systems are negative, Exam: 01:32 Constitutional: This is a well developed, well nourished patient who is awake, alert, sp4 and in no acute distress. Head/Face: Normocephalic, atraumatic. Eyes: Pupils equal round and reactive to light, extra-ocular motions intact. Lids and lashes normal. Conjunctiva and sclera are not injected. Cornea within normal limits. Periorbital areas with no swelling, redness, or edema. ENT: Nares patent. No nasal discharge, no septal abnormalities noted. Tympanic membranes are normal and external auditory canals are clear. Oropharynx with no redness, swelling, or masses, exudates, or evidence of obstruction, uvula midline. Mucous membranes moist. Neck: Trachea midline, no thyromegaly or masses palpated, and no cervical lymphadenopathy. Supple, full range of motion without nuchal rigidity, or vertebral point tenderness. Chest/axilla: Normal chest wall appearance and motion. Nontender with no deformity. No lesions are appreciated. Cardiovascular: Regular rate and rhythm with a normal S1 and S2. No gallops, murmurs, or rubs. No pulse deficits. Respiratory: Lungs have equal breath sounds bilaterally, clear to auscultation and percussion. No rales, rhonchi or wheezes noted. No increased work of breathing, no retractions or nasal flaring. Abdomen/GI: Soft, with normal bowel sounds. No distension or tympany. No guarding or rebound. No evidence of tenderness throughout. Back: No spinal tenderness. No costovertebral tenderness. Skin: Warm, dry with normal turgor. Normal color with no rashes, no lesions, and no evidence of cellulitis. MS/ Extremity: Pulses equal, no cyanosis. Neurovascular intact. Full, normal range of motion. Neuro: Awake and alert, GCS 15, oriented to person, place, time, and situation. Cranial nerves II-XII grossly intact. Motor strength 5/5 in all extremities. Sensory grossly intact. Psych: Awake, alert, with orientation to person, place and time. Behavior, mood, and affect are within normal limits Vital Signs: 12/02 19:16 BP 161 / 112; Pulse 97; Resp 18; Temp 97.8; Pulse Ox 99% ; Weight 90.72 kg; Height 5 me1 ft. 4 in. ; Pain 12/08; 20:48 BP 104 / 63; Pulse 67; Resp 18; Pulse Ox 99% on R/A; cc6 21:30 BP 108 / 58; Pulse 80; Resp 17; Pulse Ox 95% on R/A; cc6 22:50 BP 137 / 78; Pulse 70; Resp 18; Pulse Ox 98% on R/A; cc6 23:31 BP 122 / 97; Pulse 103; Resp 16; Pulse Ox 100% on R/A; cc6 12/03 00:00 BP 106 / 94; Pulse 69; Resp 18; Pulse Ox 97% on R/A; cc6 01:00 BP 124 / 70; Pulse 66; Resp 18; Pulse Ox 96% on R/A; cc6 12/02 19:16 Body Mass Index 34.33 (90.72 kg, 162.56 cm) [facility] 12/02 19:16 Pain Scale: [place] [facility] Ursula Coma Score: 12/04 01:32 Eye Response: spontaneous(4). Motor Response: obeys commands(6). Verbal Response: sp4 oriented(5). Total: 15. MDM: 12/02 19:09 Medical Screening Exam initiated sp4 12/04 01:32 Differential diagnosis: diverticulitis, Dysmenorrhea, Endometriosis, gastritis, sp4 gastroesophageal reflux disease, GI Bleed, Hepatitis. Data reviewed: vital signs, nurses notes, EMS record, lab test result(s), radiologic studies, CT scan. 01:38 Consideration of Admission/Observation Patient was admitted/placed on observation. sp4 Escalation of care including admission/observation considered. Management of patient was discussed with the following: Hospitalist: Discussed with admission team.. ED course: Patient tested positive for cocaine and methamphetamine. Likely contributing factor to nausea vomiting and pain.. 12/02 19:08 Order name: CBC with Diff; Complete Time: 20:27 sp4 12/02 19:08 Order name: CMP; Complete Time: 20:27 4 12/02 19:08 Order name: Lipase; Complete Time: 20:27 4 12/02 19:08 Order name: UA Rfx Alexandro Cult if indicated; Complete Time: 00:05 sp4 12/02 19:08 Order name: CRP; Complete Time: 20:27 sp4 12/02 23:40 Order name: Urine Drug Screen; Complete Time: 01:35 sp4 12/02 23:42 Order name: Test, Urine; Complete Time: 01:59 sp4 12/03 00:36 Order name: CBC with Automated Diff EDMS 12/03 00:36 Order name: CBC with Automated Diff EDMS 12/03 00:36 Order name: CBC with Automated Diff EDMS 12/03 00:36 Order name: Comprehensive Metabolic Panel EDMS 12/03 00:36 Order name: Comprehensive Metabolic Panel EDMS 12/03 00:36 Order name: Comprehensive Metabolic Panel EDMS 12/03 00:36 Order name: Magnesium EDMS 12/03 00:36 Order name: Magnesium EDMS 12/03 00:36 Order name: Magnesium EDMS 12/03 00:36 Order name: Phosphorus EDMS 12/03 00:36 Order name: Phosphorus EDMS 12/03 00:36 Order name: Phosphorus EDMS 12/02 22:09 Order name: CT Chest Abdomen Pelvis W/O Contrast; Complete Time: 01:35 4 12/02 19:08 Order name: IV Saline Lock; Complete Time: 19:27 sp4 12/02 19:08 Order name: Labs collected and sent; Complete Time: 19:27 sp4 Administered Medications: 12/02 19:55 Drug: Famotidine IVP 20 mg IVP once; dilute with 10 mL 0.9% NaCl; give over 2 minutes cc6 Route: IVP; Site: right antecubital; 21:11 Follow up: Response: No adverse reaction cc6 19:55 Drug: TORadol - Ketorolac IVP 30 mg IVP once Route: IVP; Site: right antecubital; cc6 21:12 Follow up: Response: No adverse reaction; Pain is decreased cc6 19:55 Drug: Ondansetron IVP 8 mg IVP once; over 2 minutes Route: IVP; Site: right antecubital;cc6 21:13 Follow up: Response: No adverse reaction; Nausea is decreased cc6 19:55 Drug: morphine IVP or IV 4 mg IVP once over 4 mins Route: IVP; Infused Over: 4 mins; cc6 Site: right antecubital; 21:12 Follow up: Response: No adverse reaction; Pain is decreased cc6 19:55 Drug: NS 0.9% IV 1000 ml IV at 1 bolus Per protocol; to be given as a bolus over 60 cc6 minutes Route: IV; Rate: 1 bolus; Site: right antecubital; 12/03 00:43 Follow up: IV Status: Completed infusion; IV Intake: 1000ml cc6 12/02 19:55 Drug: metoCLOPramide IVP 10 mg IVP once; over 1 to 2 minutes Route: IVP; Site: right cc6 antecubital; 21:11 Follow up: Response: No adverse reaction; Nausea is decreased cc6 20:55 Drug: Glucagon IVP 1 mg IVP once Route: IVP; Site: right antecubital; cc6 12/03 00:44 Follow up: Response: No adverse reaction cc6 12/02 20:55 Drug: Diazepam IVP 5 mg IVP once Route: IVP; Site: right antecubital; cc6 21:30 Follow up: Response: No adverse reaction cc6 12/03 00:17 Drug: NS 0.9% IV 1000 ml IV at 1000 ml once; to be given as a bolus over 60 minutes lg3 Route: IV; Rate: 1000 ml; Site: right antecubital; 01:47 Follow up: Response: No adverse reaction; IV Status: Completed infusion; IV Intake: cc6 1000ml 00:18 Drug: Promethazine IM 50 mg IM once Route: IM; Site: right deltoid; lg3 01:49 Follow up: Response: No adverse reaction cc6 Disposition: 12/04 01:35 Chart complete. sp4 Disposition Summary: 12/02/24 23:43 Hospitalization Ordered Notes: Hospitalization Status: Observation sp4 Provider: Michael Hay sp4 Location: Telemetry/MedSurg (observation) sp4 Condition: Stable sp4 Problem: new sp4 Symptoms: have improved sp4 Bed/Room Type: Standard sp4 Room Assignment: 208(12/03/24 00:36) vk Diagnosis - Intractable vomiting, upper abdominal pain sp4 - Nausea and vomiting sp4 - Cannabis hyperemesis syndrome sp4 Forms: - Medication Reconciliation Form sp4 - SBAR form sp4 - Leadership Thank You Letter sp4 Signatures: Dispatcher [employer] EDMS Edna Waters RN RN lg3 Geoffrey Laboy MD MD sp4 Yolanda Manning RN RN me1 Natasha Sparks vk Savi Joy, RN RN cc6 Corrections: (The following items were deleted from the chart) 12/02 19:54 19:08 Abdomen Pelvis W Con+CT.RAD.BRZ ordered. EDMS EDMS 20:33 19:51 Chest Abdomen Pelvis W Con+CT.RAD.BRZ ordered. EDMS EDMS 23:41 23:41 URINE DRUG SCREEN+UC.LAB.BRZ ordered. EDMS EDMS 12/03 00:36 12/02 23:43 sp4 vk
--- NOTE | 2024-12-02 23:43 | ER ---
Nurse's Notes [facility] Name: Sarita Gutierrez Age: 49 yrs Sex: Female : 1975 Arrival Date: 12/02/2024 Time: 19:04 Bed IW10 Private MD: Diagnosis: Intractable vomiting, upper abdominal pain;Nausea and vomiting ;Cannabis hyperemesis syndrome Presentation: 12/02 19:16 Chief complaint: EMS states: toned out for LUQ pain with n/v. 12/08 sharp with n/v- me1 unable to keep anything down for a couple of days. Reports sensitivity to light as well. Restlessness noted. Coronavirus screen: Vaccine status: Patient reports receiving the 2nd dose of the covid vaccine. Ebola Screen: No symptoms or risks identified at this time. Initial Sepsis Screen: Does the patient meet any 2 criteria? HR > 90 bpm. Does the patient have a suspected source of infection? No. Patient's initial sepsis screen is negative. Risk Assessment: Do you want to hurt yourself or someone else? Patient reports no desire to harm self or others. Onset of symptoms was November 30, 2024. 19:16 Method Of Arrival: EMS: 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 - Infectious Disease History:: Denies. - Social history:: Smoking status: Patient reports the use of cigarette tobacco products, smokes one pack cigarettes per day. - Family history:: not pertinent. Screenin:07 [facility] ED Fall Risk Assessment (Adult) History of falling in the last 3 months, cc6 including since admission No falls in past 3 months (0 pts) Confusion or Disorientation No (0 pts) Intoxicated or Sedated No (0 pts) Impaired Gait No (0 pts) Mobility Assist Device Used No (0 pt) Altered Elimination No (0 pt) Score/Fall Risk Level 0 - 2 = Low Risk Oriented to surroundings, Maintained a safe environment, Educated pt \T\ family on fall prevention, incl call for assistance when getting out of bed. Abuse screen: Denies threats or abuse. Denies injuries from another. Nutritional screening: No deficits noted. Tuberculosis screening: No symptoms or risk factors identified. Assessment: 19:07 General: Appears in no apparent distress. uncomfortable, Behavior is cooperative, cc6 anxious, restless. Pain: Complains of pain in left upper quadrant Pain does not radiate. Pain currently is 9 out of 10 on a pain scale. Quality of pain is described as sharp, Pain began 2-3 days ago. Is continuous. Neuro: Level of Consciousness is awake, alert, obeys commands, Oriented to person, place, time, situation. Cardiovascular: Patient's skin is warm and dry. Respiratory: Airway is patent Respiratory effort is even, unlabored, Respiratory pattern is regular, symmetrical. GI: Abdomen is round non-distended, Bowel sounds present X 4 quads. : No signs and/or symptoms were reported regarding the genitourinary system. EENT: No signs and/or symptoms were reported regarding the EENT system. Derm: No signs and/or symptoms reported regarding the dermatologic system. Musculoskeletal: Circulation, motion, and sensation intact. Range of motion: intact in all extremities. 20:30 Reassessment: Patient and/or family updated on plan of care and expected duration. Pain cc6 level reassessed. Patient is alert, oriented x 3, equal unlabored respirations, skin warm/dry/pink. 21:45 Reassessment: Patient and/or family updated on plan of care and expected duration. Pain cc6 level reassessed. Patient is alert, oriented x 3, equal unlabored respirations, skin warm/dry/pink. 22:15 Reassessment: Patient and/or family updated on plan of care and expected duration. Pain cc6 level reassessed. Patient is alert, oriented x 3, equal unlabored respirations, skin warm/dry/pink. 23:20 Reassessment: Patient and/or family updated on plan of care and expected duration. Pain cc6 level reassessed. Patient is alert, oriented x 3, equal unlabored respirations, skin warm/dry/pink. 12/03 00:25 Reassessment: Patient and/or family updated on plan of care and expected duration. Pain cc6 level reassessed. Patient is alert, oriented x 3, equal unlabored respirations, skin warm/dry/pink. 01:00 Reassessment: Patient and/or family updated on plan of care and expected duration. Pain cc6 level reassessed. Patient is alert, oriented x 3, equal unlabored respirations, skin warm/dry/pink. Vital Signs: 12/02 19:16 BP 161 / 112; Pulse 97; Resp 18; Temp 97.8; Pulse Ox 99% ; Weight 90.72 kg; Height 5 me1 ft. 4 in. ; Pain 12/08; 20:48 BP 104 / 63; Pulse 67; Resp 18; Pulse Ox 99% on R/A; cc6 21:30 BP 108 / 58; Pulse 80; Resp 17; Pulse Ox 95% on R/A; cc6 22:50 BP 137 / 78; Pulse 70; Resp 18; Pulse Ox 98% on R/A; cc6 23:31 BP 122 / 97; Pulse 103; Resp 16; Pulse Ox 100% on R/A; cc6 12/03 00:00 BP 106 / 94; Pulse 69; Resp 18; Pulse Ox 97% on R/A; cc6 01:00 BP 124 / 70; Pulse 66; Resp 18; Pulse Ox 96% on R/A; cc6 12/02 19:16 Body Mass Index 34.33 (90.72 kg, 162.56 cm) wv1 12/02 19:16 Pain Scale: Adult me1 Ursula Coma Score: 12/04 01:32 Eye Response: spontaneous(4). Motor Response: obeys commands(6). Verbal Response: sp4 oriented(5). Total: 15. ED Course: 12/02 19:07 Patient arrived in ED. vk 19:07 Geoffrey Laboy MD is Attending Physician. sp4 19:07 Patient has correct armband on for positive identification. Bed in low position. Call cc6 light in reach. Side rails up X 1. Provided Education on: use of call light. 19:19 Triage completed. me1 19:19 Arm band placed on Patient placed in an exam room. me1 19:27 CBC with Diff Sent. cc6 19:27 Inserted saline lock: 20 gauge in right antecubital area, using aseptic technique. cc6 19:28 CMP Sent. cc6 19:28 Lipase Sent. cc6 20:01 Savi Joy, RN is Primary Nurse. cc6 22:39 CT Chest Abdomen Pelvis W/O Contrast In Process Unspecified. EDMS 23:42 Michael Hay MD is Hospitalizing Provider. sp4 12/03 01:55 No provider procedures requiring assistance completed. Patient admitted, IV remains in cc6 place. Administered Medications: 12/02 19:55 Drug: Famotidine IVP 20 mg IVP once; dilute with 10 mL 0.9% NaCl; give over 2 minutes cc6 Route: IVP; Site: right antecubital; 21:11 Follow up: Response: No adverse reaction cc6 19:55 Drug: TORadol - Ketorolac IVP 30 mg IVP once Route: IVP; Site: right antecubital; cc6 21:12 Follow up: Response: No adverse reaction; Pain is decreased cc6 19:55 Drug: Ondansetron IVP 8 mg IVP once; over 2 minutes Route: IVP; Site: right antecubital;cc6 21:13 Follow up: Response: No adverse reaction; Nausea is decreased cc6 19:55 Drug: morphine IVP or IV 4 mg IVP once over 4 mins Route: IVP; Infused Over: 4 mins; cc6 Site: right antecubital; 21:12 Follow up: Response: No adverse reaction; Pain is decreased cc6 19:55 Drug: NS 0.9% IV 1000 ml IV at 1 bolus Per protocol; to be given as a bolus over 60 cc6 minutes Route: IV; Rate: 1 bolus; Site: right antecubital; 12/03 00:43 Follow up: IV Status: Completed infusion; IV Intake: 1000ml cc6 12/02 19:55 Drug: metoCLOPramide IVP 10 mg IVP once; over 1 to 2 minutes Route: IVP; Site: right cc6 antecubital; 21:11 Follow up: Response: No adverse reaction; Nausea is decreased cc6 20:55 Drug: Glucagon IVP 1 mg IVP once Route: IVP; Site: right antecubital; cc6 12/03 00:44 Follow up: Response: No adverse reaction cc6 12/02 20:55 Drug: Diazepam IVP 5 mg IVP once Route: IVP; Site: right antecubital; cc6 21:30 Follow up: Response: No adverse reaction cc6 12/03 00:17 Drug: NS 0.9% IV 1000 ml IV at 1000 ml once; to be given as a bolus over 60 minutes lg3 Route: IV; Rate: 1000 ml; Site: right antecubital; 01:47 Follow up: Response: No adverse reaction; IV Status: Completed infusion; IV Intake: cc6 1000ml 00:18 Drug: Promethazine IM 50 mg IM once Route: IM; Site: right deltoid; lg3 01:49 Follow up: Response: No adverse reaction cc6 Medication: 01:56 VIS not applicable for this client. cc6 Intake: 00:43 IV: 1000ml; Total: 1000ml. cc6 01:47 IV: 1000ml; Total: 2000ml. cc6 Outcome: 12/02 23:43 Decision to Hospitalize by Provider. sp4 12/03 01:55 Admitted to Med/surg accompanied by tech, via wheelchair, room 208, with chart, cc6 Condition: stable Instructed on the need for admit, 01:59 Patient left the ED. cc6 Signatures: Dispatcher [employer] EDEdna Buchanan RN RN lg3 Geoffrey Laboy MD MD sp4 Yolanda Manning RN RN me1 Natasha Sparks Cassandra, ISAIAH RN cc6 Corrections: (The following items were deleted from the chart) 12/02 19:19 19:16 Chief complaint: EMS states: toned out for LUQ pain with n/v. 10/10 sharp, unable me1 to keep anything down for a couple of days. Reports sensitivity to light as well. Restlessness noted. me1 20:01 19:07 Pain: Complains of pain in left upper quadrant Pain does not radiate. Pain cc6 currently is 9 out of 10 on a pain scale. Quality of pain is described as sharp, Pain began 1 day ago. Is continuous, cc6
[2024-12-03] MEDS ORDERED: PROMETHAZINE INJ 25 MG/ML AMP ONE (00:07)
[2024-12-03] MEDS ORDERED: NA CHLORIDE 0.9% 1,000 ML ONE (00:07)
[2024-12-03] MEDS ORDERED: SODIUM CHLORIDE 0.9% 10ML INJ IV PRN (00:28)
--- NOTE | 2024-12-03 00:30 | P.HP ---
Certification for Inpatient Patient admitted to: Observation With expected LOS: <2 Midnights Patient will require the following post-hospital care: None Practitioner: I am a practitioner with admitting privileges, knowledge of patient current condition, hospital course, and medical plan of care. Services: Services provided to patient in accordance with Admission requirements found in Title 42 Section 412.3 of the Code of Federal Regulations Patient History Date of Service: 12/02/24 Reason for admission: Intractable nausea and vomiting. History of Present Illness: Patient is a 49-year-old female with past medical history of GERD, schizoaffective disorder, anxiety, alcohol use disorder, bipolar disorder, hepatitis C, who presents to the ER today complaining of persistent vomiting for the past 2 to 3 days, nonbloody, none bilious content, with no associated abdominal pain. Patient states she has been vomiting whenever she eats, states she has not been able to tolerate food content, or liquid, states whenever she tries to eat everything comes back up, denies of any abdominal pain during this entire episodes. Patient denies any associated chest pain or shortness of breath, urinary symptoms, headaches, or blurred vision, or dizziness. Allergies erythromycin lactobionate [From Erythrocin] Allergy (Intermediate, Verified 12/03/24 02:01) Itching/Hives/Rash Erythromycin Allergy (Uncoded 12/03/24 02:01) Unknown Home Medications: NK [No Home Meds] 11/24/12 - Past Medical/Surgical History Diabetic: No -: Hepatitis C -: Bipolar -: Depression -: Drug Abuse -: Alcohol use disorder. -: Anxiety -: Smoker -: Multiple Suicide Attempts -: Tubaligation - Social History Smoking Status: Current every day smoker Smoking therapy provided: Yes Patient receptive to therapy: No Alcohol use: Yes CD- Drugs: Yes Place of Residence: Home Review of Systems 10-point ROS is otherwise unremarkable Gastrointestinal: Nausea, Vomiting Physical Examination - Physical Exam General: Alert, In no apparent distress, Oriented x3, Cooperative HEENT: Atraumatic, Normocephalic, PERRLA, Mucous membr. moist/pink Neck: Supple, 2+ carotid pulse no bruit, JVD not distended, No LAD, Without JVD or thyroid abnormality Respiratory: Clear to auscultation bilaterally, Normal air movement Cardiovascular: No edema, Normal pulses, Regular rate/rhythm, Normal S1 S2, No gallops, No rubs, No murmurs Capillary refill: <2 Seconds Gastrointestinal: Normal bowel sounds, Soft and benign, Non-distended, W/out hepatomegaly, No ascites, No tenderness, No masses, No rebound, No guarding Musculoskeletal: No clubbing, No swelling, No contractures, No erythema, No tenderness, No warmth Integumentary: No rashes, No breakdown, No significant lesion, No tenderness/swelling, No erythema, No warmth, No cyanosis Neurological: Normal gait, Normal speech, Normal strength at 5/5 x4 extr, Normal tone, Sensation intact, Cranial nerves 3-12 intact, Normal reflexes 2+, Normal affect Lymphatics: No axilla or inguinal lymphadenopathy - Studies Laboratory Data (last 24 hrs) 12/02/24 12/02/24 19:26 19:26 WBC 9.40 Hgb 15.5 H Hct 43.7 Plt Count 308 Sodium 141 Potassium 3.3 L BUN 5 L Creatinine 0.71 Glucose 86 Total Bilirubin 0.9 AST 37 ALT 37 Alkaline Phosphatase 95 Lipase 25 Female Exam - Breasts Breasts: Normal configuration, Normal contours, Symmetrical Assessment and Plan - Plan Patient admitted to observation with diagnosis of intractable nausea and vomiting with associated abdominal pain. (1)Intractable nausea and vomiting. Patient CT chest, abdomen, and pelvis negative. -Clear liquid, to advance if tolerated. -IV LR at 125 mL/ hr. -Zofran 4 mg IV as needed every 6 hours.--CMP in the morning. -Protonix 40 mg IV daily. (2) DVT prophylaxis. -Lovenox 40 mg subcu daily (3)Patient home medications to be resumed when reconciled. (4)Explained entire treatment plan to the patient, solicited questions answered and voiced understanding. Discharge Plan: Home Plan to discharge in: 48 Hours - Advance Directives Does patient have a Living Will: No Does patient have a Durable POA for Healthcare: No - Code Status/Comfort Care Code Status Assessed: Yes Code Status: Full Code Critical Care: No Time Spent Managing Pts Care (In Minutes): 55
[2024-12-03 02:08] LABS: METHAMPHETAM POSITIVE (NEGATIVE); THC Cannibis NEGATIVE (NEGATIVE)
[2024-12-03 02:12] VITALS: BMI 34.1
[2024-12-03] MEDS: Ringers Lactate 1,000 ML IV SCH (02:16)
[2024-12-03 02:44] VITALS: O2SAT 96
--- NOTE | 2024-12-03 05:11 | RAD REPORT ---
INDICATION: dysphagia COMPARISON: CT abdomen pelvis September 29, 2018 TECHNIQUE: Unenhanced CT of the chest, abdomen, and pelvis was performed per protocol. Multiplanar reconstructio ns were provided. Dose reduction techniques were utilized for this exam including automated exposure control, adjustmen ts to mA and/or kV according to patient's size, and the use of iterative reconstruction techniques. FINDINGS: Lack of intravenous contrast limits evaluation of the viscera and vasculature. CHEST: HEART: Normal in size. No coronary arterial calcifications. No pericardial effusion or thickening. AORTA: Thoracic aorta normal in course and caliber. ADENOPATHY: No pathologic intrathoracic or axillary adenopathy. LUNGS: Lungs are symmetrically aerated without focal consolidation, suspicious pulmonary nodule, pleu ral effusion, or pneumothorax. ABDOMEN / PELVIS: LIVER: Unremarkable. SPLEEN: Unremarkable. PANCREAS: Unremarkable. ADRENALS: Unremarkable. KIDNEYS: Contrast material within the renal collecting systems. Kidneys otherwise unremarkable. GALLBLADDER: Unremarkable. VESSELS: Aortoiliac system normal in course and caliber. BOWEL: Unremarkable. APPENDIX: Normal. FLUID: No free fluid or abnormal fluid collection. ADENOPATHY: No pathologic adenopathy. BLADDER: Contrast material within the urinary bladder. Bladder otherwise unremarkable. PELVIS: Uterus and adnexa are unremarkable. BONES: No acute bony abnormality. Multilevel degenerative changes throughout the spine. SOFT TISSUES: Unremarkable. IMPRESSION: No acute abnormalities in the chest, abdomen, or pelvis on this unenhanced exam. Electronically signed by: George Heard DO 12/02/2024 11:29 PM CDT RP NR Due to temporary technical issues with the PACS/Meeting To You reporting system, reports are being patricio d by the in-house radiologist without review as a courtesy to ensure prompt reporting the interpreting radiologist is fully responsible for the content of the report. Transcribed Date/Time: 12/03/2024 5:10 AM
[2024-12-03] MEDS: PANTOPRAZOLE 40 MG INJ IVP SCH (08:23)
[2024-12-03] MEDS: ENOXAPARIN 40 MG/0.4 ML SQ SCH (08:27)
[2024-12-03] MEDS: POTASSIUM 25 MEQ EFFERV TAB PO ONE (08:28)
[2024-12-03] MEDS: ONDANSETRON 4 MG/2 ML VIAL IV PRN (08:30)
--- NOTE | 2024-12-03 10:46 | P.PN ---
Date of Service: 12/03/24 Patient is 49 years of age admitted with nausea vomiting since Wednesday patient has a history of alcohol abuse will plan to start on IV thiamine fluids Librium labs reviewed patient also tested positive for multiple drugs
[2024-12-03] MEDS: THIAMINE 200 MG/2 ML INJ IVP SCH (11:06)
[2024-12-04 04:48] VITALS: TEMP 97.8
[2024-12-04 06:09] LABS: Absolute Lymphocytes (CBC) 2.5 K/uL (0.7-4.9); Hematocrit 38.6 % (36.0-45.0); Hemoglobin 13.3 g/dL (12.0-15.0); MCH 30.6 pg (27.0-35.0); MCHC 34.6 g/dL (32.0-36.0); MCV 88.5 fL (80-100); MPV 9.8 fL (7.6-11.3); Nucleated RBC Absolute Count 0.0 (0-0); Nucleated Red Blood Cells % 0.0 % (0-0); RBC Red Blood Cell Count 4.36 M/uL (3.86-4.86); White Blood Count 7.60 thou/uL (4.3-10.9)
[2024-12-04 06:26] LABS: ALT/SGPT 34.0 U/L (13-56); AST/SGOT 30.0 U/L (15-37); Albumin 2.6 g/dL (3.4-5.0); Albumin/Globulin Ratio 0.7 (1.1-1.8); Alkaline Phosphatase 74.0 U/L (45-117); Anion Gap 7.4 mEq/L (5.0-15.0); BUN Blood Urea Nitrogen 4.0 mg/dL (7-18); Globulin 3.6 g/dL (2.3-3.5); Glucose Level 78.0 mg/dL (74-106); Magnesium 1.6 mg/dL (1.6-2.4); Potassium 3.4 mEq/L (3.5-5.1)
[2024-12-04 08:10] VITALS: BP 142/83
[2024-12-04] MEDS: POTASSIUM CL SA 10 MEQ TAB PO ONE (08:52)
--- NOTE | 2024-12-04 14:04 | P.DS ---
Admission Date: 12/03/24 Discharge Date: 12/04/24 Disposition: ELOPED Reason for Admission: Intractable nausea and vomiting. Brief History of Present Illness: Patient is a 49-year-old female with past medical history of GERD, schizoaffective disorder, anxiety, alcohol use disorder, bipolar disorder, hepatitis C, who presents to the ER today complaining of persistent vomiting for the past 2 to 3 days, nonbloody, none bilious content, with no associated abdom inal pain. Patient states she has been vomiting whenever she eats, states she has not been able to tolerate food content, or liquid, states whenever she tries to eat everything comes back up, denies of any abdominal pain during this entire episodes. Patient denies any associated chest pain or shortness of breath, urinary symptoms, headaches, or blurred vision, or dizziness. Upon admission she was given supportive care with IV fluid, Librium, vitamins. The following day she left AGAINST MEDICAL ADVICE. Hospital Course: Physical Examination - Physical Exam General: Alert, In no apparent distress, Oriented x3, Cooperative HEENT: Atraumatic, Normocephalic, PERRLA, Mucous membr. moist/pink Neck: Supple, 2+ carotid pulse no bruit, JVD not distended, No LAD, Without JVD or thyroid abnormality Respiratory: Clear to auscultation bilaterally, Normal air movement Cardiovascular: No edema, Normal pulses, Regular rate/rhythm, Normal S1 S2, No gallops, No rubs, No murmurs Capillary refill: <2 Seconds Gastrointestinal: Normal bowel sounds, Soft and benign, Non-distended, W/out hepatomegaly, No ascites, No tenderness, No masses, No rebound, No guarding Musculoskeletal: No clubbing, No swelling, No contractures, No erythema, No tenderness, No warmth Integumentary: No rashes, No breakdown, No significant lesion, No tenderness/swelling, No erythema, No warmth, No cyanosis Neurological: Normal gait, Normal speech, Normal strength at 5/5 x4 extr, Normal tone, Sensation intact, Cranial nerves 3-12 intact, Normal reflexes 2+, Normal affect Lymphatics: No axilla or inguinal lymphadenopathy - Studies Laboratory Data (last 24 hrs) 12/02/24 12/02/24 19:26 19:26 WBC 9.40 Hgb 15.5 H Hct 43.7 Plt Count 308 Sodium 141 Potassium 3.3 L BUN 5 L Creatinine 0.71 Glucose 86 Total Bilirubin 0.9 AST 37 ALT 37 Alkaline Phosphatase 95 Lipase 25 Assessment and Plan - Plan Patient admitted to observation with diagnosis of intractable nausea and vomiting with associated abdominal pain. 12/04 -Nausea and vomiting resolved (1)Intractable nausea and vomiting. Patient CT chest, abdomen, and pelvis negat phi. -Clear liquid, to advance if tolerated. -IV LR at 125 mL/ hr. -Zofran 4 mg IV as needed every 6 hours.--CMP in the morning. -Protonix 40 mg IV daily. (2) DVT prophylaxis. -Lovenox 40 mg subcu daily (3)Patient home medications to be resumed when reconciled. (4)Explained entire treatment plan to the patient, solicited questions answered and voiced understanding. Discharge Plan: Home Plan to discharge in: 48 Hours - Advance Directives Does patient have a Living Will: No Does patient have a Durable POA for Healthcare: No - Code Status/Comfort Care Code Status Assessed: Yes Code Status: Full Code Critical Care: No Time Spent Managing Pts Care (In Minutes): 55 Vital Signs/Physical Exam: Temp Pulse Resp BP Pulse Ox 97.8 F 73 12 142/83 H 98 12/04/24 08:00 12/04/24 08:00 12/04/24 08:00 12/04/24 08:00 12/04/24 08:00 Laboratory Data at Discharge: WBC 7.60 thou/uL (4.3-10.9) 12/04/24 05:28 Hgb 13.3 g/dL (12.0-15.0) 12/04/24 05:28 Hct 38.6 % (36.0-45.0) 12/04/24 05:28 Plt Count 258 thou/uL (152-406) 12/04/24 05:28 Sodium 142 mEq/L (136-145) 12/04/24 05:28 Potassium 3.4 mEq/L (3.5-5.1) L 12/04/24 05:28 BUN 4 mg/dL (7-18) L 12/04/24 05:28 Creatinine 0.56 mg/dL (0.55-1.02) 12/04/24 05:28 Glucose 78 mg/dL (74-106) 12/04/24 05:28 Phosphorus 2.8 mg/dL (2.5-4.9) 12/04/24 05:28 Magnesium 1.6 mg/dL (1.6-2.4) 12/04/24 05:28 Total Bilirubin 0.8 mg/dL (0.2-1.0) 12/04/24 05:28 AST 30 U/L (15-37) 12/04/24 05:28 ALT 34 U/L (13-56) 12/04/24 05:28 Alkaline Phosphatase 74 U/L (45-117) 12/04/24 05:28 Lipase 25 U/L (13-75) 12/02/24 19:26 Home Medications: NK [No Home Meds] 11/24/12 Followup: NONE,NONE [Primary Care Provider] -
== END 2024-12-04 10:10 | disposition left against medical advice (07) ==
LOC: ER 19:04 → 2ND 12-03 00:24
PROVIDERS: ADMIT Internal Medicine Sleep Medicine; ATTEND Family Medicine
DX: R11.16 Cannabis hyperemesis syndrome (principal); K21.9 Gastro-esophageal reflux disease without esophagitis; F41.9 Anxiety disorder, unspecified; F25.9 Schizoaffective disorder, unspecified; B19.20 Unspecified viral hepatitis C without hepatic coma; F31.9 Bipolar disorder, unspecified; F10.90 Alcohol use, unspecified, uncomplicated; F14.90 Cocaine use, unspecified, uncomplicated; F15.90 Other stimulant use, unspecified, uncomplicated; F19.90 Other psychoactive substance use, unspecified, uncomplicated; Z88.1 Allergy status to other antibiotic agents; Z53.29 Procedure and treatment not carried out because of patient's decision for other reasons
CPT/HCPCS: 36415; 71250; 74176; 80053; 80307; 81001; 81025; 83690; 83735; 84100; 85025; 86140; 96361; 96372; 96374; 96375; 99285; G0378; J1610; J1650; J1885; J2405; J2470; J2550; J2765; J3360; J3411; J7030; J7120

== ENCOUNTER 2024-12-05 13:47 | Emergency (ER) | payer SELFPAY ==
--- NOTE | 2024-12-05 16:05 | EDPHYS ---
Physician Documentation [facility] Name: Sarita Gutierrez Age: 49 yrs Sex: Female : 1975 Arrival Date: 12/05/2024 Time: 13:47 Bed 11 Private MD: ED Physician Anibal Matthews HPI: 12/05 15:58 This 49 yrs old Female presents to ER via Wheelchair with complaints of Hip Pain. sp3 15:58 49-year-old female with history of prior drug abuse, hep C, schizophrenia presents with sp3 right hip pain from a fall she stated several days ago. Patient is a very poor historian. Patient seen briefly and x-ray ordered. Patient is ambulatory.. 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 - Infectious Disease History:: Denies. - Social history:: Smoking status: Patient reports the use of cigarette tobacco products, smokes one pack cigarettes per day. ROS: 15:59 Constitutional: Negative for fever, chills, and weight loss, Eyes: Negative for injury, sp3 pain, redness, and discharge, ENT: Negative for injury, pain, and discharge, Neck: Negative for injury, pain, and swelling, Cardiovascular: Negative for chest pain, palpitations, and edema, Respiratory: Negative for shortness of breath, cough, wheezing, and pleuritic chest pain, Abdomen/GI: Negative for abdominal pain, nausea, vomiting, diarrhea, and constipation, Back: Negative for injury and pain, Skin: Negative for injury, rash, and discoloration, Neuro: Negative for headache, weakness, numbness, tingling, and seizure, Psych: Negative for depression, anxiety, suicide ideation, homicidal ideation, and hallucinations, Allergy/Immunology: Negative for hives, rash, and allergies, Endocrine: Negative for neck swelling, polydipsia, polyuria, polyphagia, and marked weight changes, 15:59 All other systems are negative, Exam: 15:59 Constitutional: This is a well developed, well nourished patient who is awake, alert, sp3 and in no acute distress. Head/Face: Normocephalic, atraumatic. Skin: Warm, dry with normal turgor. Normal color with no rashes, no lesions, and no evidence of cellulitis. 15:59 Musculoskeletal/extremity: Right lateral hip pain. Patient ambulatory.. Vital Signs: 13:59 BP 128 / 72; Pulse 104; Resp 20; Temp 98.4; Pulse Ox 100% ; Weight 86.18 kg; Height 5 me1 ft. 4 in. ; Pain 1010; 13:59 Body Mass Index 32.61 (86.18 kg, 162.56 cm) me1 13:59 Pain Scale: Adult me1 MDM: 14:09 Medical Screening Exam initiated sp3 15:59 Data reviewed: vital signs, nurses notes, radiologic studies. ED course: X-ray ordered sp3 however patient eloped prior to obtaining x-ray.. Administered Medications: No medications were administered Disposition Summary: 12/05/24 16:04 Eloped Notes: Disposition: before being seen by provider ss Reason: (see nurse's notes) ss Signatures: Dispatcher [employer] EDMS Justine Stallworth RN RN ss Anibal Matthews MD MD sp3 Yolanda Manning, ISAIAH RN me1 Corrections: (The following items were deleted from the chart) 15:24 15:24 Hip Right 2 View+RAD.RAD.BRZ ordered. EDMS EDMS
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
[2024-12-05 16:09] VITALS: BP 128/72; TEMP 98.4; O2SAT 100
== END 2024-12-05 16:04 | disposition left against medical advice (07) ==
LOC: ER 13:47
DX: Z53.21 Procedure and treatment not carried out due to patient leaving prior to being seen by health care provider (principal)
CPT/HCPCS: 99281